=== PATIENT | male | born 1940 | race Caucasian/White ===

== ENCOUNTER 2016-08-08 15:43 | Emergency (ER) | payer MEDICARE, OTHER ==
[2016-08-08 15:59] VITALS: BP 152/92
--- NOTE | 2016-08-08 16:46 | EDM.PDOC ---
ED HPI GENERAL MEDICAL PROBLEM - General Chief Complaint: Gastrointestinal Problem Stated Complaint: CONSTIPATION Time Seen by Provider: 08/08/16 16:30 Source of Information: Reports: Patient History Limitations: Reports: No Limitations - History of Present Illness INITIAL COMMENTS - FREE TEXT/NARRATIVE: 75-year-old male presents for evaluation and treatment of constipation. Patient reports he has not had a significant bowel movement in the last 6 days. He has been using enemas every other day but has not noticed any significant results. States that he recently went on a road trip and was not eating his normal diet. He feels is likely contributed his acute constipation. Patient reports that he has a meningioma which is being managed by Dr. Kelley in [place]. He is states that this is likely the cause of his chronic constipation. Patient was seen at the [facility] 2 days ago. Abdominal xray was preformed. He is instructed to start lactulose and MiraLax. He was given a bottle of mag citrate by the pharmacy but has not taken this. Current symptoms include constipation. He states that he did have some small "raisin size " stools today, estimates about a half cup. He denies any fevers, chills, nausea, vomiting, abdominal pain or cramping, melena or hematochezia. He states he is passing gas. Reports he is not eating as much as he is concerned about constipation. States he spoke with his daughter and she encouraged him to be seen she as she informed him on occasion, surgery is necessary to treat constipation. - Related Data Allergies Allergy/AdvReac Type Severity Reaction Status Date / Time No Known Allergies Allergy Verified 08/08/16 15:59 Home Meds: Home Meds Brimonidine/Timolol [Combigan 0.2%/0.5% Ophth Soln] 1 drop EYELF BID 05/04/14 [ History] Latanoprost [Xalatan 0.005% Ophth Soln] 1 drop EYELF BEDTIME 05/05/14 [History] Pantoprazole [Protonix] 40 mg PO DAILY #90 tab.cr 05/06/14 [Rx] Gabapentin [Neurontin] 08/08/16 [History] Hydrochlorothiazide 25 mg PO DAILY 08/08/16 [History] Lisinopril [Prinivil] 08/08/16 [History] Past Medical History HEENT History: Reports: Impaired Vision Cardiovascular History: Reports: Hypertension Gastrointestinal History: Reports: Chronic Constipation Neurological History: Reports: Head Trauma Oncologic (Cancer) History: Reports: Brain, Prostate Social & Family History - Tobacco Use Smoking Status *Q: Former Smoker Used Tobacco, but Quit: Yes Month Tobacco Last Used: july - Caffeine Use Caffeine Use: Reports: Coffee - Alcohol Use Days Per Week of Alcohol Use: 0 - Recreational Drug Use Recreational Drug Use: No - Living Situation & Occupation Living situation: Reports: Occupation: Retired ED ROS GENERAL - Review of Systems Review Of Systems: See Below Constitutional: Denies: Fever, Decreased Appetite (has not been eating as much due to concerns over decreased stool) GI/Abdominal: Reports: Constipation, Flatus (continues to pass flatus). Denies : Abdominal Pain, Hematochezia, Melena, Nausea, Vomiting ED EXAM, GI/ABD - Physical Exam Exam: See Below Exam Limited By: No Limitations General Appearance: Alert, WD/WN, No Apparent Distress Eyes: Left: Normal Appearance (right upperlid drooping) Respiratory/Chest: No Respiratory Distress, Lungs Clear, Normal Breath Sounds Cardiovascular: Normal Peripheral Pulses, Regular Rate, Rhythm, No Murmur GI/Abdominal: Normal Bowel Sounds, Soft, Non-Tender Neurological: Alert, Oriented, Normal Cognition Psychiatric: Normal Affect, Normal Mood Skin Exam: Warm, Dry, Normal Color Course - Vital Signs Last Recorded V/S: Last Vital Signs Temp 36.5 C 08/08/16 15:52 Pulse 75 08/08/16 15:52 Resp 15 08/08/16 15:52 BP 152/92 H 08/08/16 15:52 Pulse Ox 100 08/08/16 15:52 - Orders/Labs/Meds Orders: Active Orders 24 hr Category Date Time Status Enema [RC] ASDIRECTED Care 08/08/16 17:37 Active - Radiology Interpretation Free Text/Narrative:: Flat and upright of the abdomen reviewed by myself and Dr. Bernard. No air fluid lines. Extensive gas in the large colon. No ileus evident. No free air. Mild stool in colon. - Re-Assessments/Exams Free Text/Narrative Re-Assessment/Exam: 08/08/16 17:40 Review of the x-ray results of the patient and his . Plan will be to give an enema here in the ER and have them do Magnesium citrate at home. 08/08/16 18:40 Patient had good results with enema here. Will have hime do a bottle of mag citrate per morning. If no results, then repeat the hours later. I will Have him do MiraLax every other day for daily bowel maintenance. he may continue to use enemas every other day if he feels that they're beneficial for him. Will discharge home. Discharge instructions as documented. Departure - Departure Time of Disposition: 18:50 Disposition: Home, Self-Care 01 Condition: good Clinical Impression: Constipation - Discharge Information Instructions: Constipation, Adult Referrals: Mark Sparks MD [Primary Care Provider] - Forms: ED Department Discharge Additional Instructions: Drink half of a bottle of Mag citrate tomorrow morning. If you do not have good results with the mag citrate drink the second 1/2 of the bottle 12 hours later. Recommend starting MiraLax every other day. may continue to use your enemas every other day. Make sure you are drinking plenty of fluids. Please return to the ER should your symptoms change or worsen. - My Orders Last 24 Hours: My Active Orders 08/08/16 17:37 Enema [RC] ASDIRECTED - Assessment/Plan Last 24 Hours: My Active Orders 08/08/16 17:37 Enema [RC] ASDIRECTED
--- NOTE | 2016-08-09 08:30 | CR ---
Abdomen: Supine and upright views of the abdomen were obtained. Comparison: No previous abdominal x-ray. Multiple surgical clips are seen within the pelvis. Scattered gas within colon is seen. This does not appear to be obstructive. No free air is seen. Scattered degenerative endplate spurring is noted within the spine. Impression: 1. Incidental findings. Diagnostic code #2
== END 2016-08-08 19:11 | disposition home or self-care (01) ==
LOC: JD.ED 15:43
DX: K59.00 Constipation, unspecified (principal); I10 Essential (primary) hypertension; Z87.891 Personal history of nicotine dependence; Z85.46 Personal history of malignant neoplasm of prostate; Z85.841 Personal history of malignant neoplasm of brain; Z79.899 Other long term (current) drug therapy
CPT/HCPCS: 74020; 74020-26; 99282; 99283

== ENCOUNTER 2016-10-12 10:13 | Inpatient (IN) | payer MEDICARE, OTHER ==
[2016-10-12] MEDS ORDERED: Sodium Chloride 0.9% 10 ML Syringe FLUSH PRN (11:09)
[2016-10-12] MEDS ORDERED: fentaNYL 100 MCG/2 ML SDV IVPUSH ONE ×2 (11:10→15:02)
--- NOTE | 2016-10-12 11:12 | EDM.PDOC ---
ED HPI GENERAL MEDICAL PROBLEM - General Chief Complaint: Fever Stated Complaint: Fever Time Seen by Provider: 10/12/16 11:00 Source of Information: Reports: EMS, Family (Son), RN Notes Reviewed History Limitations: Reports: No Limitations - History of Present Illness INITIAL COMMENTS - FREE TEXT/NARRATIVE: 75 year old male presents to the ED via [facility] due to fever, lethargy, and mental changes. The patient is unable to give history at this time. He is accompanied by his son who offers the history. The patient has terminal brain cancer. They are not treating the cancer and are focused on comfort care. The patient lives at [facility] but the son feels that he needs a higher level of care. Yesterday, they took Mik alysia Ventura to several doctor appointments. Over the past 24 hours the patient has had a significant, rapid decline according to the son. They were able to transfer him with minimal assistance yesterday. This morning, they were unable to get him out of bed. He has become very lethargic. He developed at 101.6 fever. He has increased confusion and slurred speech. This has been progressively worsening for some time. He has a non-productive cough. Severe headache. He has complete loss of vision to his right eye, this is not new. He also has swelling to the right orbit which is not new. He has been continent until yesterday. The son said he suddenly loss function of his bladder. Right Face Pain Score (Numeric/FACES): 7 - Related Data Allergies Allergy/AdvReac Type Severity Reaction Status Date / Time No Known Allergies Allergy Verified 08/08/16 15:59 Home Meds: Home Meds Brimonidine/Timolol [Combigan 0.2%/0.5% Ophth Soln] 1 drop EYELF BID 05/04/14 [ History] Latanoprost [Xalatan 0.005% Ophth Soln] 1 drop EYELF BEDTIME 05/05/14 [History] Pantoprazole [Protonix] 40 mg PO DAILY #90 tab.cr 05/06/14 [Rx] Gabapentin [Neurontin] 08/08/16 [History] Hydrochlorothiazide 25 mg PO DAILY 08/08/16 [History] Lisinopril [Prinivil] 08/08/16 [History] Past Medical History HEENT History: Reports: Impaired Vision Cardiovascular History: Reports: Hypertension Gastrointestinal History: Reports: Chronic Constipation Neurological History: Reports: Head Trauma Psychiatric History: Reports: Anxiety Oncologic (Cancer) History: Reports: Brain, Prostate - Past Surgical History HEENT Surgical History: Reports: Tonsillectomy GI Surgical History: Reports: Other (See Below) Other GI Surgeries/Procedures: Prostate removal Social & Family History - Family History Family Medical History: Noncontributory - Tobacco Use Smoking Status *Q: Never Smoker Used Tobacco, but Quit: Yes Month Tobacco Last Used: july - Caffeine Use Caffeine Use: Reports: Coffee - Alcohol Use Days Per Week of Alcohol Use: 0 - Recreational Drug Use Recreational Drug Use: No - Living Situation & Occupation Living situation: Reports: Occupation: Retired ED ROS GENERAL - Review of Systems Review Of Systems: See Below Constitutional: Reports: Fever, Weakness, Fatigue Respiratory: Reports: Cough. Denies: Sputum Cardiovascular: Reports: No Symptoms. Denies: Chest Pain, Edema GI/Abdominal: Reports: Constipation. Denies: Abdominal Pain, Nausea, Vomiting : Reports: No Symptoms Neurological: Reports: Confusion, Headache, Weakness ED EXAM, SEPSIS - Physical Exam Exam: See Below Exam Limited By: No Limitations General Appearance: WD/WN, Lethargic Eye Exam: Right Eye: Other (Right swollen eye, right pupil is not responsive to light), Left Eye: PERRL Throat/Mouth: Other (dry mucous membranes ) Head: Facial Swelling Respiratory/Chest: Lungs Clear, No Accessory Muscle Use, Chest Non-Tender, Decreased Breath Sounds Cardiovascular: Normal Peripheral Pulses, Regular Rate, Rhythm, No Edema, Other (diaphoretic ) GI/Abdominal Exam: Normal Bowel Sounds, Soft, Non-Tender, No Distention Neurological: Other (lethargic, does not answer questions, follows commands) Skin: Warm, Intact, Diaphoretic Course - Vital Signs Last Recorded V/S: Last Vital Signs Temp 101.8 F H 10/12/16 19:08 Pulse 96 10/12/16 19:08 Resp 20 10/12/16 19:08 BP 131/68 10/12/16 19:08 Pulse Ox 93 L 10/12/16 19:08 - Orders/Labs/Meds Orders: Active Orders 24 hr Category Date Time Status Cardiac Monitoring [RC] . DIRECTED Care 10/12/16 11:09 Active CULTURE BLOOD [BC] Stat Lab 10/12/16 11:33 Received CULTURE BLOOD [] Stat Lab 10/12/16 11:43 Received Sodium Chloride 0.9% [Saline Flush] Med 10/12/16 11:09 Active 10 ml FLUSH ASDIRECTED PRN Blood Culture x2 Reflex Set [OM.PC] Stat Ot 10/12/16 11:09 Ordered Peripheral IV Insertion Adult [OM.PC] Stat Ot 10/12/16 11:09 Ordered Medication Orders Acetaminophen (Tylenol) 650 mg RECTAL Q4H PRN PRN Reason: Pain (mild 1-3) Last Admin: 10/12/16 18:27 Dose: 650 mg Albuterol/Ipratropium (Duoneb 3.0-0.5 Mg/3 Ml) 3 ml NEB Q4H PRN PRN Reason: Shortness Of Breath/wheezing Famotidine (Pepcid) 20 mg IVPUSH BID [facility] Last Admin: 10/12/16 20:18 Dose: 20 mg Fentanyl (Duragesic) 12 mcg TRDERM Q72H [facility] Last Admin: 10/12/16 18:32 Dose: 12 mcg Hydralazine HCl (Apresoline) 20 mg IVPUSH Q4H PRN PRN Reason: Hypertension Ampicillin Sodium 2 gm/ Sodium (Chloride) 100 mls @ 200 mls/hr IV Q4H [facility] Vancomycin HCl 1 gm/Vancomycin HCl 500 mg/ Sodium Chloride 500 mls @ 125 mls/ hr IV Q12H [facility] Ceftriaxone Sodium 2 gm/ (Sodium Chloride) 100 mls @ 200 mls/hr IV Q12H [facility] Promethazine HCl 12.5 mg/ (Sodium Chloride) 50.5 mls @ 100 mls/hr IV Q6H PRN PRN Reason: Nausea/Vomiting Metronidazole 500 mg/ Premix 100 mls @ 100 mls/hr IV Q8H [facility] Last Admin: 10/12/16 20:17 Dose: 100 mls/hr Dexamethasone 34 mg/ Sodium (Chloride) 58.5 mls @ 117 mls/hr IV Q12H [facility] Stop: 10/14/16 21:29 Last Admin: 10/12/16 21:44 Dose: 117 mls/hr Sodium Chloride (Normal Saline) 1,000 mls @ 25 mls/hr IV ASDIRECTED [facility] Last Admin: 10/12/16 21:49 Dose: 25 mls/hr Lorazepam (Ativan) 1 mg IV Q6H PRN PRN Reason: Anxiety Magnesium Sulfate (Pharmacy To Dose - Magnesium Replacement) 1 dose .XX ASDIRECTED [facility] Metoprolol Tartrate (Lopressor) 5 mg IVPUSH Q4H PRN PRN Reason: Tachycardia Miscellaneous Information (Remove Patch) 1 ea TRDERM Q72H [facility] Last Admin: 10/12/16 20:03 Dose: Not Given Morphine Sulfate (Morphine) 2 mg IVPUSH Q4H PRN PRN Reason: Pain Stop: 10/15/16 17:19 Ondansetron HCl (Zofran) 4 mg IV Q6H PRN PRN Reason: Nausea/Vomiting Potassium Chloride (Pharmacy To Dose - Potassium Replacement) 1 dose .XX ASDIRECTED [facility] Sodium Chloride (Saline Flush) 10 ml FLUSH ASDIRECTED PRN PRN Reason: Keep Vein Open Last Admin: 10/12/16 11:34 Dose: 10 ml Vancomycin HCl (Pharmacy To Dose - Vancomycin) 1 dose .XX ONETIME ONE Stop: 10/12/16 17:13 Labs: Laboratory Tests 10/12/16 10/12/16 10/12/16 Range/Units 11:33 11:33 11:33 WBC 16.25 H (4.23-9.07) K/mm3 RBC 4.54 L (4.63-6.08) M/mm3 Hgb 14.2 (13.7-17.5) gm/L Hct 41.8 (40.1-51.0) % MCV 92.1 (79.0-92.2) fl MCH 31.3 (25.7-32.2) pg MCHC 34.0 (32.2-35.5) g/dl RDW Std Deviation 43.1 (35.1-43.9) fL Plt Count 201 (163-337) K/mm3 MPV 9.2 L (9.4-12.3) fl Neutrophils % (Manual) 83 H (40-60) % Band Neutrophils % 5 (0-10) % Lymphocytes % (Manual) 1 L (20-40) % Atypical Lymphs % 0 % Monocytes % (Manual) 11 H (2-10) % Eosinophils % (Manual) 0 L (0.8-7.0) % Basophils % (Manual) 0 L (0.2-1.2) Toxic Granulation 1+ slight Platelet Estimate Adequate Plt Morphology Comment Normal RBC Morph Comment Normal Sodium 136 (136-145) mEq/L Potassium 2.9 L (3.5-5.1) mEq/L Chloride 98 (98-107) mEq/L Carbon Dioxide 32 (21-32) mEq/L Anion Gap 8.9 (5-15) BUN 15 (7-18) mg/dL Creatinine 1.2 (0.7-1.3) mg/dL Est Cr Clr Drug Dosing TNP Estimated GFR (MDRD) 59 (>60) mL/min BUN/Creatinine Ratio 12.5 L (14-18) Glucose 118 H (83-115) mg/dL Lactic Acid 1.1 (0.4-2.0) mmol/L Calcium 8.8 (8.5-10.1) mg/dL Total Bilirubin 0.9 (0.2-1.0) mg/dL AST 27 (15-37) U/L ALT 32 (16-63) U/L Alkaline Phosphatase 64 (46-116) U/L C-Reactive Protein 16.1 H* (<1.0) mg/dL Total Protein 6.7 (6.4-8.2) g/dl Albumin 3.2 L (3.4-5.0) g/dl Globulin 3.5 gm/dL Albumin/Globulin Ratio 0.9 L (1-2) Urine Color (Yellow) Urine Appearance (Clear) Urine pH (5.0-8.0) Ur Specific [place] (1.005-1.030) Urine Protein (Negative) Urine Glucose (UA) (Negative) Urine Ketones (Negative) Urine Occult Blood (Negative) Urine Nitrite (Negative) Urine Bilirubin (Negative) Urine Urobilinogen (0.2-1.0) Ur Leukocyte Esterase (Negative) Urine RBC (0-5) /hpf Urine WBC (0-5) /hpf Ur Epithelial Cells (0-5) /hpf Urine Bacteria (FEW) /hpf Urine Mucus (FEW) /hpf 10/12/17 Range/Units 13:20 WBC (4.23-9.07) K/mm3 RBC (4.63-6.08) M/mm3 Hgb (13.7-17.5) gm/L Hct (40.1-51.0) % MCV (79.0-92.2) fl MCH (25.7-32.2) pg MCHC (32.2-35.5) g/dl RDW Std Deviation (35.1-43.9) fL Plt Count (163-337) K/mm3 MPV (9.4-12.3) fl Neutrophils % (Manual) (40-60) % Band Neutrophils % (0-10) % Lymphocytes % (Manual) (20-40) % Atypical Lymphs % % Monocytes % (Manual) (2-10) % Eosinophils % (Manual) (0.8-7.0) % Basophils % (Manual) (0.2-1.2) Toxic Granulation Platelet Estimate Plt Morphology Comment RBC Morph Comment Sodium (136-145) mEq/L Potassium (3.5-5.1) mEq/L Chloride (98-107) mEq/L Carbon Dioxide (21-32) mEq/L Anion Gap (5-15) BUN (7-18) mg/dL Creatinine (0.7-1.3) mg/dL Est Cr Clr Drug Dosing Estimated GFR (MDRD) (>60) mL/min BUN/Creatinine Ratio (14-18) Glucose (83-115) mg/dL Lactic Acid (0.4-2.0) mmol/L Calcium (8.5-10.1) mg/dL Total Bilirubin (0.2-1.0) mg/dL AST (15-37) U/L ALT (16-63) U/L Alkaline Phosphatase (46-116) U/L C-Reactive Protein (<1.0) mg/dL Total Protein (6.4-8.2) g/dl Albumin (3.4-5.0) g/dl Globulin gm/dL Albumin/Globulin Ratio (1-2) Urine Color Melbeta H (Yellow) Urine Appearance Clear (Clear) Urine pH 6.0 (5.0-8.0) Ur Specific [place] > or = 1.030 (1.005-1.030) Urine Protein 2+ H (Negative) Urine Glucose (UA) Negative (Negative) Urine Ketones 1+ H (Negative) Urine Occult Blood Negative (Negative) Urine Nitrite Negative (Negative) Urine Bilirubin Negative (Negative) Urine Urobilinogen 0.2 (0.2-1.0) Ur Leukocyte Esterase Negative (Negative) Urine RBC 5-10 H (0-5) /hpf Urine WBC 0-5 (0-5) /hpf Ur Epithelial Cells 0-5 (0-5) /hpf Urine Bacteria Moderate H (FEW) /hpf Urine Mucus Moderate H (FEW) /hpf Meds: Medications Generic Name Dose Route Start Last Admin Trade Name Freq PRN Reason Stop Dose Admin Acetaminophen 650 mg 10/12/16 17:16 10/12/16 18:27 Tylenol RECTAL 650 mg Q4H PRN Administration Pain (mild 1-3) Albuterol/Ipratropium 3 ml 10/12/16 17:19 Duoneb 3.0-0.5 Mg/3 Ml NEB Q4H PRN Shortness Of Breath/wheezing Famotidine 20 mg 10/12/16 21:00 10/12/16 20:18 Pepcid IVPUSH 20 mg BID [facility] Administration Fentanyl 12 mcg 10/12/16 18:00 10/12/16 18:32 Duragesic TRDERM 12 mcg Q72H [facility] Administration Hydralazine HCl 20 mg 10/12/16 17:09 Apresoline IVPUSH Q4H PRN Hypertension Ampicillin Sodium 2 gm/ Sodium 100 mls @ 200 mls/hr 10/12/16 18:00 Chloride IV Q4H [facility] Vancomycin HCl 1 gm/ 500 mls @ 125 mls/hr 10/12/16 22:00 Vancomycin HCl 500 mg/ Sodium IV Chloride Q12H [facility] Ceftriaxone Sodium 2 gm/ 100 mls @ 200 mls/hr 10/13/16 00:00 Sodium Chloride IV Q12H [facility] Promethazine HCl 12.5 mg/ 50.5 mls @ 100 mls/hr 10/12/16 17:19 Sodium Chloride IV Q6H PRN Nausea/Vomiting Metronidazole 500 mg/ Premix 100 mls @ 100 mls/hr 10/12/16 19:30 10/12/16 20: 17 IV 100 mls/hr Q8H [facility] Administration Dexamethasone 34 mg/ Sodium 58.5 mls @ 117 mls/hr 10/12/16 21:00 10/12/16 21: 44 Chloride IV 10/14/16 21:29 117 mls/hr Q12H [facility] Administration Sodium Chloride 1,000 mls @ 25 mls/hr 10/12/16 22:00 10/12/16 21:49 Normal Saline IV 25 mls/hr ASDIRECTED [facility] Administration Lorazepam 1 mg 10/12/16 17:19 Ativan IV Q6H PRN Anxiety Magnesium Sulfate 1 dose 10/12/16 17:30 Pharmacy To Dose - Magnesium Replacement .XX ASDIRECTED [facility] Metoprolol Tartrate 5 mg 10/12/16 17:09 Lopressor IVPUSH Q4H PRN Tachycardia Miscellaneous Information 1 ea 10/12/16 18:00 10/12/16 20:03 Remove Patch TRDERM Not Given Q72H [facility] Morphine Sulfate 2 mg 10/12/16 17:16 Morphine IVPUSH 10/15/16 17:19 Q4H PRN Pain Ondansetron HCl 4 mg 10/12/16 17:19 Zofran IV Q6H PRN Nausea/Vomiting Potassium Chloride 1 dose 10/12/16 17:30 Pharmacy To Dose - Potassium Replacement .XX ASDIRECTED [facility] Sodium Chloride 10 ml 10/12/16 11:09 10/12/16 11:34 Saline Flush FLUSH 10 ml ASDIRECTED PRN Administration Keep Vein Open Vancomycin HCl 1 dose 10/12/16 17:12 Pharmacy To Dose - Vancomycin .XX 10/12/16 17:13 ONETIME ONE Discontinued Medications Generic Name Dose Route Start Last Admin Trade Name Freq PRN Reason Stop Dose Admin Ampicillin Sodium Confirm 10/12/16 20:36 10/12/16 21:41 Ampicillin Administered 10/12/16 20:37 Not Given Dose 2 gm .ROUTE .STK-MED ONE Dexamethasone 34 mg 10/13/16 09:00 Dexamethasone IV 10/14/16 21:01 Q12HR [facility] Dexamethasone 34 mg 10/12/16 18:00 Dexamethasone IV 10/12/16 18:01 ONETIME ONE Dexamethasone 34 mg 10/12/16 18:00 10/12/16 21:41 Dexamethasone IV 10/12/16 18:01 Not Given ONETIME ONE Dexamethasone 34 mg 10/12/16 20:45 10/12/16 21:48 Dexamethasone IV 10/12/16 20:46 Not Given ONETIME ONE Fentanyl 25 mcg 10/12/16 11:10 10/12/16 11:34 Sublimaze IVPUSH 10/12/16 11:11 25 mcg ONETIME ONE Administration Fentanyl 25 mcg 10/12/16 15:02 10/12/16 15:28 Sublimaze IVPUSH 10/12/16 15:03 25 mcg ONETIME ONE Administration Potassium Chloride 10 meq/ 100 mls @ 100 mls/hr 10/12/16 13:15 10/12/16 14:18 Premix IV 100 mls/hr ASDIRECTED [facility] Administration Sodium Chloride 1,000 mls @ 150 mls/hr 10/12/16 13:08 10/12/16 13:37 Normal Saline IV 10/12/16 19:47 150 mls/hr ONETIME ONE Administration Ceftriaxone Sodium 1 gm/ 100 mls @ 200 mls/hr 10/12/16 13:13 10/12/16 13:40 Sodium Chloride IV 10/12/16 13:42 200 mls/hr ONETIME ONE Administration Sodium Chloride Confirm 10/12/16 20:45 10/12/16 21:32 Normal Saline Administered 10/12/16 20:46 Not Given Dose 100 mls @ as directed .ROUTE .STK-MED ONE Sodium Chloride 1,000 mls @ 150 mls/hr 10/12/16 21:30 Normal Saline IV ASDIRECTED [facility] - Re-Assessments/Exams Free Text/Narrative Re-Assessment/Exam: CBC reveals elevated WBC of 16,000 with 5 bands. CRP is elevated at 16. CMP reveals sodium of 136, potassium 2.9. Lactate is normal. Chest x-ray is negative for acute findings. No pulmonary infiltrates or effusions. UA is negative for infection. IV antibiotics were not initially started upon arrival because family was undecided if they wanted antibiotics since the patient is DNR. The family did talk and decided to proceed with antibiotics. Rocephin was ordered. Potassium rider was also ordered due to significant hypokalemia. The patient's family brought to my attention that the patient has had worsening right facial swelling and they have noticed that it's hot to touch. This was not mentioned during initial history and physical exam. Initially, the son reported that this was chronic however the daughter says this is a significant change. The patient also has yellow drainage from his right nare which they said has been occurring for a few days or more. I offered CT of the head and sinuses to evaluate for infection or possibly encephalitis. However, CT will not change treatment plan. After a long discussion, the family decided not to perform CTs as it would be a lot of movement and discomfort for the patient. We discussed the seriousness of his condition and that his prognosis is poor. 10/12/16 15:00 Dr. Gastelum who has accepted care of the patient. Patient will be admitted as an inpatient. Departure - Departure Time of Disposition: 15:30 Disposition: Admitted As Inpatient 64 Condition: Serious Clinical Impression: Fever Qualifiers: Fever type: unspecified Qualified Code(s): R50.9 - Fever, unspecified Sepsis Qualifiers: Sepsis type: sepsis due to unspecified organism Qualified Code(s): A41.9 - Sepsis, unspecified organism - Discharge Information - My Orders Last 24 Hours: My Active Orders 10/12/16 11:09 Cardiac Monitoring [RC] . DIRECTED Sodium Chloride 0.9% [Saline Flush] 10 ml FLUSH ASDIRECTED PRN Blood Culture x2 Reflex Set [OM.PC] Stat Peripheral IV Insertion Adult [OM.PC] Stat 10/12/16 11:33 CULTURE BLOOD [BC] Stat 10/12/16 11:43 CULTURE BLOOD [BC] Stat - Assessment/Plan Last 24 Hours: My Active Orders 10/12/16 11:09 Cardiac Monitoring [RC] . DIRECTED Sodium Chloride 0.9% [Saline Flush] 10 ml FLUSH ASDIRECTED PRN Blood Culture x2 Reflex Set [OM.PC] Stat Peripheral IV Insertion Adult [OM.PC] Stat 10/12/16 11:33 CULTURE BLOOD [BC] Stat 10/12/16 11:43 CULTURE BLOOD [BC] Stat
--- NOTE | 2016-10-12 12:07 | CR ---
Chest: Portable view of the chest was obtained. Comparison: Previous chest x-ray of 01/20/16. Heart size and mediastinum are within normal limits. Lungs are clear with no acute infiltrates. Bony structures are grossly intact. Several old healed left-sided rib fractures are incidentally noted. Impression: 1. Nothing acute is appreciated on portable chest x-ray. Diagnostic code #2
[2016-10-12] MEDS ORDERED: Sodium Chloride 0.9% 1,000 ML IV ONE (13:08)
[2016-10-12] MEDS ORDERED: cefTRIAXone 1 GM in Sodium Chloride 0.9% 100 ML IV ONE (13:13)
[2016-10-12] MEDS ORDERED: Potassium Chloride 10 MEQ in Premix Bag 1 BAG IV SCH (13:15)
--- NOTE | 2016-10-12 16:56 | PCM.HP ---
H&P History of Present Illness - General Date of Service: 10/12/16 Admit Problem/Dx: Admission Diagnosis/Problem Admission Diagnosis/Problem Fever Source of Information: Patient, Family, Provider, RN Notes Reviewed, Significant Other History Limitations: Reports: Altered Mental Status - History of Present Illness Initial Comments - Free Text/Narative: This is a 75 year old elderly white male with past medical history of impaired vision, hypertension, chronic constipation, history of head trauma, and history of prostate cancer who presents to the emergency department with complaints of worsening mental status associated with fever of 101.6 and a slurred speech. Patient is unable to abide pertinent information due confused status. 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 He was seen in [facility] in the past but surgical option was not pursued. He has seen Dr. Kelley in [facility] and underwent palliative treatment. Unfortunately, he has become resistant to the treatment. Patient was recently evaluated by numerous physicians in [facility] but over the course of 24 hours he has been rapidly declining. His initial workup in emergency department shows a CBC remarkable for WBC of 16.25, RBC of 4.54, neutrophils of 82%, and monocytes of 11%. His chemistry is remarkable for potassium of 2.9, glucose of 118, CRP of 16.1, and albumin of 3.2. His lactic acid is 1.1. UA is not impressive for urinary tract infection but suggestive of clinical dehydration. His chest x-ray shows no acute abnormal findings. Patient is being admitted for End of Life Care. He is DNR/DNI with comfort measures. Right Face Pain Score (Numeric/FACES): 7 - Related Data Allergies/Adverse Reactions: Allergies Allergy/AdvReac Type Severity Reaction Status Date / Time No Known Allergies Allergy Verified 08/08/16 15:59 Home Medications: Home Meds Brimonidine/Timolol [Combigan 0.2%/0.5% Ophth Soln] 1 drop EYELF BID 05/04/14 [ History] Latanoprost [Xalatan 0.005% Ophth Soln] 1 drop EYELF BEDTIME 05/05/14 [History] Pantoprazole [Protonix] 40 mg PO DAILY #90 tab.cr 05/06/14 [Rx] Gabapentin [Neurontin] 08/08/16 [History] Hydrochlorothiazide 25 mg PO DAILY 08/08/16 [History] Lisinopril [Prinivil] 08/08/16 [History] Past Medical History HEENT History: Reports: Impaired Vision Cardiovascular History: Reports: Hypertension Gastrointestinal History: Reports: Chronic Constipation Neurological History: Reports: Head Trauma Psychiatric History: Reports: Anxiety Oncologic (Cancer) History: Reports: Brain, Prostate - Past Surgical History HEENT Surgical History: Reports: Tonsillectomy GI Surgical History: Reports: Other (See Below) Other GI Surgeries/Procedures: Prostate removal Social & Family History - Family History Family Medical History: Noncontributory - Tobacco Use Smoking Status *Q: Never Smoker Used Tobacco, but Quit: Yes Month Tobacco Last Used: july - Caffeine Use Caffeine Use: Reports: Coffee - Alcohol Use Days Per Week of Alcohol Use: 0 - Recreational Drug Use Recreational Drug Use: No - Living Situation & Occupation Living situation: Reports: Occupation: Retired H&P Review of Systems - Review of Systems: Review Of Systems: See Below General: Reports: Fever, Chills, Weakness, Fatigue, Other (facial swelling with shut right eye) HEENT: Reports: No Symptoms, Other (dry mouth and thirsty) Pulmonary: Denies: Shortness of Breath Cardiovascular: Denies: Chest Pain Gastrointestinal: Reports: Constipation, Difficulty Swallowing. Denies: Abdominal Pain, Nausea, Vomiting Genitourinary: Reports: No Symptoms Musculoskeletal: Reports: No Symptoms Skin: Reports: No Symptoms Psychiatric: Denies: Depression, Anxiety, Hallucinations Neurological: Reports: Confusion Hematologic/Lymphatic: Reports: No Symptoms Immunologic: Reports: No Symptoms Exam - Exam Exam: See Below - Vital Signs Vital Signs: Last Vital Signs Temp 37.4 C 10/12/16 12:15 Pulse 85 10/12/16 15:30 Resp 16 10/12/16 15:30 BP 142/67 H 10/12/16 15:30 Pulse Ox 93 L 10/12/16 10:33 Weight: 88.451 kg - Exam Quality Assessment: Other General: Alert, Cooperative, Mild Distress, Moderate Distress, Other (Somnolent) HEENT: Nares Patent, Normal Nasal Septum (serosangernous), Other (right edema swollen, edematous and unresponsive pupil). No: EOMI Neck: Trachea Midline Lungs: Normal Respiratory Effort, Decreased Breath Sounds Cardiovascular: Regular Rate, Regular Rhythm GI/Abdominal Exam: Normal Bowel Sounds, Soft, Non-Tender, No Organomegaly, No Distention (Male) Exam: Deferred Rectal (Males) Exam: Deferred Back Exam: Normal Inspection, Decreased Range of Motion Extremities: Normal Inspection, Normal Range of Motion, Non-Tender, No Pedal Edema, Normal Capillary Refill Skin: Warm, Dry, Intact Skin Alteration Location (Drawings Not To Scale): 1 - Facial asymmetry, edema, erythema, hot to the touch. Difficulty opening his mouth. Edema right side of his face and neck. Dry mucous membranes 2 - edematous, red and warm to the touch Neuro Extensive - Mental Status: Slow Response to Commands, Other (awake). No: Alert, Oriented x3, Normal Mood/Affect, Normal Cognition, Memory Intact Neuro Extensive - Motor, Sensory, Reflexes: CN II-XII Intact, Abnormal Gait Psychiatric: No: Normal Affect, Normal Mood, Suicidal Ideation, Homicidal Ideation Physical Exam Comments:: Limited neuro examination due to AMS - Patient Data Result Diagrams: 10/12/16 11:33 10/12/16 11:33 *Q Meaningful Use (ADM) - VTE *Q VTE Criteria *Q: - Stroke *Q Stroke Criteria *Q: - AMI *Q AMI Criteria *Q: Problem List Initiated/Reviewed/Updated: Yes Orders Last 24hrs: Medication Orders Potassium Chloride 10 meq/ (Premix) 100 mls @ 100 mls/hr IV ASDIRECTED [facility] Last Admin: 10/12/16 14:18 Dose: 100 mls/hr Sodium Chloride (Normal Saline) 1,000 mls @ 150 mls/hr IV ONETIME ONE Stop: 10/12/16 19:47 Last Admin: 10/12/16 13:37 Dose: 150 mls/hr Sodium Chloride (Saline Flush) 10 ml FLUSH ASDIRECTED PRN PRN Reason: Keep Vein Open Last Admin: 10/12/16 11:34 Dose: 10 ml Assessment/Plan Comment:: Assessment/Plan: Acute: End of Life Care - DNR/DNI with Comfort Measures - Has inoperable brain tumor, failed palliative radiation therapy - So far family wants antibiotic, O2, fluids, and vitals check. No labs! 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 to include imaging study - IV Abx: Rocephin 2 gram IV Q12 and Vancomycin 15-20mg/kg Q8 for pharmacy to dose - Will add Ampicillin 2 gram IV Q4 due to Advanced Age - High dose IV steroids - If no treatment to treatment, consider adding anti-viral in am Rhinosinusitis and Right Parotitis - [place] nasal fluids - Cannot r/o CSF leak: frontal sinus - Family is refusing head imaging study - CSF culture - Currently receiving Vancoymin above - Add Flagyl for anaerobic coverage Acute Encephalopathy - Likely 2/2 toxic/metabolic/infectious process - Treat underlying cause Leukocytosis - WBC is 16.25 and CRP 16.1 - 2/2 Above Hypokalemia - K 2.9 - Likely 2/2 poor intake Dehydration - 2/2 poor intake - has difficulty swallowing per family - IV fluids for hydration for now Chronic: HTN Constipation BPH Anxiety Plan: Admit to Med-Surg Comfort Measures with conservative management Family will further decide what to do tomorrow NPO except to wet mouth with sponge SW/CM for d/c planning Code status: DNR/DNI Comfort Measures Prognosis: very poor
[2016-10-12] MEDS ORDERED: Metoprolol Tartrate 5 MG/5 ML SDV IVPUSH PRN (17:09)
[2016-10-12] MEDS ORDERED: hydrALAZINE 20 MG/ML SDV IVPUSH PRN (17:09)
[2016-10-12] MEDS ORDERED: Morphine 2 MG/ML Syringe IVPUSH PRN (17:16)
[2016-10-12] MEDS ORDERED: Acetaminophen 650 MG Supp RECTAL PRN (17:16)
[2016-10-12] MEDS ORDERED: Albuterol/Ipratropium 3.0-0.5 MG/3 ML Neb Soln NEB PRN (17:19)
[2016-10-12] MEDS ORDERED: Ondansetron 4 MG/2 ML SDV IV PRN (17:19)
[2016-10-12] MEDS ORDERED: Promethazine 12.5 MG in Sodium Chloride 0.9% 50 ML IV PRN (17:19)
[2016-10-12] MEDS ORDERED: Dexamethasone 4 MG/ML 5 ML MDV IV ONE ×3 (18:00→20:45)
[2016-10-12] MEDS: fentaNYL 12 MCG/HR Transdermal Patch TRDERM SCH (18:32)
[2016-10-12] MEDS: metroNIDAZOLE/Normal Saline 500 MG in Premix Bag 1 BAG IV SCH (20:17)
[2016-10-12] MEDS: Famotidine 20 MG/2 ML SDV IVPUSH SCH (20:18)
[2016-10-12] MEDS ORDERED: Ampicillin 2 GM Vial ONE (20:36)
[2016-10-12] MEDS ORDERED: Sodium Chloride 0.9% 100 ML ONE (20:45)
[2016-10-12] MEDS ORDERED: Sodium Chloride 0.9% 1,000 ML IV SCH (21:30)
[2016-10-12] MEDS: SODIUM CHLORIDE 0.9% IV SCH (21:44)
[2016-10-12] MEDS: DEXAMETHASONE IV SCH (21:44)
[2016-10-12] MEDS: Sodium Chloride 0.9% 1,000 ML IV SCH (21:49)
[2016-10-12] MEDS ORDERED: Vancomycin 1 GM, Vancomycin 500 MG in Sodium Chloride 0.9% 500 ML IV SCH ×2 (22:00→23:00)
[2016-10-12] MEDS: Ampicillin 2 GM in Sodium Chloride 0.9% 100 ML IV SCH ×2 (22:41→22:50)
[2016-10-12] MEDS ORDERED: Ampicillin 2 GM in Sodium Chloride 0.9% 100 ML IV SCH (22:45)
[2016-10-12] MEDS ORDERED: cefTRIAXone 2 GM in Sodium Chloride 0.9% 100 ML IV SCH (23:00)
[2016-10-13] MEDS ORDERED: cefTRIAXone 2 GM in Sodium Chloride 0.9% 100 ML IV SCH ×2
[2016-10-13] MEDS ORDERED: Vancomycin 1 GM, Vancomycin 500 MG in Sodium Chloride 0.9% 500 ML IV SCH ×3
[2016-10-13] MEDS: LORazepam 2 MG/ML MDV IV PRN (01:04)
[2016-10-13] MEDS ORDERED: Ampicillin 2 GM Vial ONE (02:41)
[2016-10-13] MEDS ORDERED: Sodium Chloride 0.9% 200 ML ONE (02:45)
[2016-10-13] MEDS: Ampicillin 2 GM in Sodium Chloride 0.9% 100 ML IV SCH ×2 (04:03→06:00)
[2016-10-13] MEDS: metroNIDAZOLE/Normal Saline 500 MG in Premix Bag 1 BAG IV SCH ×3 (04:42→18:59)
[2016-10-13] MEDS ORDERED: Dexamethasone 4 MG/ML 5 ML MDV IV SCH (09:00)
[2016-10-13] MEDS: SODIUM CHLORIDE 0.9% IV SCH ×3 (09:32→21:56)
[2016-10-13] MEDS: DEXAMETHASONE IV SCH ×3 (09:32→21:56)
[2016-10-13] MEDS ORDERED: Ampicillin 2 GM in Sodium Chloride 0.9% 100 ML IV SCH (10:00)
[2016-10-13] MEDS: Famotidine 20 MG/2 ML SDV IVPUSH SCH ×2 (10:07→22:07)
--- NOTE | 2016-10-13 11:35 | PCM.PN ---
- General Info Date of Service: 10/13/16 Admission Dx/Problem (Free Text): Interdisciplinary rounds occurred with discussion of plan of therapy, patient has improved and wanted to eat. Diet held until SP to evaluate swallow. A total of 15 minutes was spent on assessment/plan as well as physical exam. Patient is able to swallow without feeling as if something is stuck in his throat. Functional Status: Reports: Ambulating, Urinating - Review of Systems General: Reports: No Symptoms HEENT: Reports: No Symptoms Pulmonary: Reports: No Symptoms Cardiovascular: Reports: No Symptoms Gastrointestinal: Reports: No Symptoms Genitourinary: Reports: No Symptoms Musculoskeletal: Reports: No Symptoms Skin: Reports: No Symptoms Neurological: Reports: No Symptoms Psychiatric: Reports: No Symptoms - Patient Data Vitals - most recent: Last Vital Signs Temp 36.4 C 10/13/16 09:09 Pulse 81 10/13/16 09:09 Resp 14 10/13/16 09:09 BP 113/62 10/13/16 09:09 Pulse Ox 96 10/13/16 09:09 Weight - most recent: 86.092 kg I&O - last 24 hours: Intake & Output 10/12/16 10/13/16 10/13/16 22:59 06:59 14:59 Intake Total 1787 Balance 1787 Lab Results last 24 hrs: Laboratory Results - last 24 hr 10/12/16 Range/Units 21:30 MRSA (PCR) Negative Med Orders - Current: Current Medications Acetaminophen (Tylenol) 650 mg RECTAL Q4H PRN PRN Reason: Pain (mild 1-3) Last Admin: 10/12/16 18:27 Dose: 650 mg Albuterol/Ipratropium (Duoneb 3.0-0.5 Mg/3 Ml) 3 ml NEB Q4H PRN PRN Reason: Shortness Of Breath/wheezing Enoxaparin Sodium (Lovenox) 30 mg SUBCUT DAILY [facility] Famotidine (Pepcid) 20 mg IVPUSH BID [facility] Last Admin: 10/13/16 10:07 Dose: 20 mg Fentanyl (Duragesic) 12 mcg TRDERM Q72H [facility] Last Admin: 10/12/16 18:32 Dose: 12 mcg Hydralazine HCl (Apresoline) 20 mg IVPUSH Q4H PRN PRN Reason: Hypertension Promethazine HCl 12.5 mg/ (Sodium Chloride) 50.5 mls @ 100 mls/hr IV Q6H PRN PRN Reason: Nausea/Vomiting Metronidazole 500 mg/ Premix 100 mls @ 100 mls/hr IV Q8H [facility] Last Admin: 10/13/16 04:42 Dose: 100 mls/hr Sodium Chloride (Normal Saline) 1,000 mls @ 25 mls/hr IV ASDIRECTED [facility] Last Admin: 10/12/16 21:49 Dose: 25 mls/hr Dexamethasone 34 mg/ Sodium (Chloride) 58.5 mls @ 117 mls/hr IV Q12H [facility] Stop: 10/14/16 21:59 Last Admin: 10/13/16 10:14 Dose: 117 mls/hr Lorazepam (Ativan) 1 mg IV Q6H PRN PRN Reason: Anxiety Last Admin: 10/13/16 01:04 Dose: 1 mg Magnesium Sulfate (Pharmacy To Dose - Magnesium Replacement) 1 dose .XX ASDIRECTED [facility] Metoprolol Tartrate (Lopressor) 5 mg IVPUSH Q4H PRN PRN Reason: Tachycardia Miscellaneous Information (Remove Patch) 1 ea TRDERM Q72H [facility] Last Admin: 10/12/16 20:03 Dose: Not Given Morphine Sulfate (Morphine) 2 mg IVPUSH Q4H PRN PRN Reason: Pain Stop: 10/15/16 17:19 Ondansetron HCl (Zofran) 4 mg IV Q6H PRN PRN Reason: Nausea/Vomiting Potassium Chloride (Pharmacy To Dose - Potassium Replacement) 1 dose .XX ASDIRECTED [facility] Sodium Chloride (Saline Flush) 10 ml FLUSH ASDIRECTED PRN PRN Reason: Keep Vein Open Last Admin: 10/12/16 11:34 Dose: 10 ml Discontinued Medications Ampicillin Sodium (Ampicillin) Confirm Administered Dose 2 gm .ROUTE .STK-MED ONE Stop: 10/12/16 20:37 Last Admin: 10/12/16 21:41 Dose: Not Given Ampicillin Sodium (Ampicillin) Confirm Administered Dose 4 gm .ROUTE .STK-MED ONE Stop: 10/13/16 02:42 Last Admin: 10/13/16 03:01 Dose: Not Given Dexamethasone (Dexamethasone) 34 mg IV Q12HR [facility] Stop: 10/14/16 21:01 Dexamethasone (Dexamethasone) 34 mg IV ONETIME ONE Stop: 10/12/16 18:01 Dexamethasone (Dexamethasone) 34 mg IV ONETIME ONE Stop: 10/12/16 18:01 Last Admin: 10/12/16 21:41 Dose: Not Given Dexamethasone (Dexamethasone) 34 mg IV ONETIME ONE Stop: 10/12/16 20:46 Last Admin: 10/12/16 21:48 Dose: Not Given Fentanyl (Sublimaze) 25 mcg IVPUSH ONETIME ONE Stop: 10/12/16 11:11 Last Admin: 10/12/16 11:34 Dose: 25 mcg Fentanyl (Sublimaze) 25 mcg IVPUSH ONETIME ONE Stop: 10/12/16 15:03 Last Admin: 10/12/16 15:28 Dose: 25 mcg Potassium Chloride 10 meq/ (Premix) 100 mls @ 100 mls/hr IV ASDIRECTED [facility] Last Admin: 10/12/16 14:18 Dose: 100 mls/hr Sodium Chloride (Normal Saline) 1,000 mls @ 150 mls/hr IV ONETIME ONE Stop: 10/12/16 19:47 Last Admin: 10/12/16 13:37 Dose: 150 mls/hr Ceftriaxone Sodium 1 gm/ (Sodium Chloride) 100 mls @ 200 mls/hr IV ONETIME ONE Stop: 10/12/16 13:42 Last Admin: 10/12/16 13:40 Dose: 200 mls/hr Ampicillin Sodium 2 gm/ Sodium (Chloride) 100 mls @ 200 mls/hr IV Q4H [facility] Last Admin: 10/12/16 22:41 Dose: Not Given Vancomycin HCl 1 gm/Vancomycin HCl 500 mg/ Sodium Chloride 500 mls @ 125 mls/ hr IV Q12H [facility] Last Admin: 10/12/16 22:41 Dose: Not Given Ceftriaxone Sodium 2 gm/ (Sodium Chloride) 100 mls @ 200 mls/hr IV Q12H [facility] Sodium Chloride (Normal Saline) Confirm Administered Dose 100 mls @ as directed .ROUTE .STK-MED ONE Stop: 10/12/16 20:46 Last Admin: 10/12/16 21:32 Dose: Not Given Dexamethasone 34 mg/ Sodium (Chloride) 58.5 mls @ 117 mls/hr IV Q12H [facility] Stop: 10/14/16 21:29 Last Admin: 10/13/16 09:32 Dose: Not Given Sodium Chloride (Normal Saline) 1,000 mls @ 150 mls/hr IV ASDIRECTED [facility] Ampicillin Sodium 2 gm/ Sodium (Chloride) 100 mls @ 200 mls/hr IV Q4H [facility] Ampicillin Sodium 2 gm/ Sodium (Chloride) 100 mls @ 200 mls/hr IV Q4H [facility] Last Admin: 10/13/16 06:00 Dose: 200 mls/hr Vancomycin HCl 1 gm/Vancomycin HCl 500 mg/ Sodium Chloride 500 mls @ 125 mls/ hr IV Q12H [facility] Ceftriaxone Sodium 2 gm/ (Sodium Chloride) 100 mls @ 200 mls/hr IV Q12H [facility] Last Admin: 10/12/16 23:41 Dose: 200 mls/hr Vancomycin HCl 1 gm/Vancomycin HCl 500 mg/ Sodium Chloride 500 mls @ 333.33 mls /hr IV Q12H [facility] Last Admin: 10/13/16 00:38 Dose: 333.33 mls/hr Sodium Chloride (Normal Saline) Confirm Administered Dose 200 mls @ as directed .ROUTE .STK-MED ONE Stop: 10/13/16 02:46 Last Admin: 10/13/16 03:01 Dose: Not Given Ampicillin Sodium 2 gm/ Sodium (Chloride) 100 mls @ 200 mls/hr IV Q4H [facility] Last Admin: 10/13/16 11:06 Dose: 200 mls/hr Vancomycin HCl (Pharmacy To Dose - Vancomycin) 1 dose .XX ONETIME ONE Stop: 10/12/16 17:13 - Exam Quality Assessment: DVT prophylaxis General: alert, oriented, cooperative, no acute distress HEENT: Pupils equal, Pupils reactive, EOMI, Mucous membr. moist/pink, Other ( decreased erythema and edema) Neck: supple, trachea midline, no JVD Lungs: Normal Respiratory Effort Cardiovascular: Regular Rate, Regular Rhythm GI/Abdominal Exam: Normal Bowel Sounds, Soft, Non-Tender, No Organomegaly (Male) Exam: Deferred Back Exam: Normal Inspection Extremities: Normal Inspection Skin: warm Neurological: no new focal deficit, normal speech Psy/Mental Status: alert, normal affect, normal mood - Problem List & Annotations (1) Fever SNOMED Code(s): 872356335 Code(s): R50.9 - FEVER, UNSPECIFIED Status: Acute Current Visit: Yes Qualifiers: Qualified Code(s): R50.9 - Fever, unspecified (2) Sepsis SNOMED Code(s): 82146529 Code(s): A41.9 - SEPSIS, UNSPECIFIED ORGANISM Status: Acute Current Visit : Yes Qualifiers: Qualified Code(s): A41.9 - Sepsis, unspecified organism (3) Cellulitis SNOMED Code(s): 850171418 Code(s): L03.90 - CELLULITIS, UNSPECIFIED Status: Acute Current Visit: Yes (4) Parotid discomfort SNOMED Code(s): 91302838 Code(s): K11.9 - DISEASE OF [place], UNSPECIFIED Status: Acute Current Visit: Yes (5) Meningeal cancer SNOMED Code(s): 204811127 Code(s): C70.9 - MALIGNANT NEOPLASM OF MENINGES, UNSPECIFIED Status: Acute Current Visit: Yes (6) Encephalitis SNOMED Code(s): 98050591 Code(s): G04.90 - ENCEPHALITIS AND ENCEPHALOMYELITIS, UNSPECIFIED Status: Acute Current Visit: Yes - Problem List Review Problem List Initiated/Reviewed/Updated: Yes - My Orders Last 24 Hours: My Active Orders 10/13/16 09:49 Antiembolic Devices [RC] PER UNIT ROUTINE MARIA FERNANDA Hose [Antiembolic Hose] [OM.PC] Routine 10/14/16 09:00 Enoxaparin [Lovenox] 30 mg SUBCUT DAILY - Plan Plan:: Assessment/Plan: Acute: End of Life Care - DNR/DNI with Comfort Measures - Has inoperable brain tumor, failed palliative radiation therapy - So far family wants antibiotic, O2, fluids, and vitals check. No labs! 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 - Add Flagyl for anaerobic coverage-->continue Acute Encephalopathy - Likely 2/2 toxic/metabolic/infectious process - Treat underlying cause Leukocytosis - WBC is 16.25 and CRP 16.1 - 2/2 Above Hypokalemia - K 2.9 - Likely 2/2 poor intake Dehydration - 2/2 poor intake - has difficulty swallowing per family - IV fluids for hydration for now Chronic: HTN Constipation BPH Anxiety Plan: Continue Med-Surg Comfort Measures with conservative management Family will further decide what to do tomorrow (?), more undecided with improvement SP re: Suleiman DONOVAN/CM for d/c planning Code status: DNR/DNI Comfort Measures Prognosis: very poor Disposition suggest SNF. LOS>96 hours expected for treatment and placement; ongoing discussion regarding placement; code status DNR/DNI Comfort Care
[2016-10-13] MEDS ORDERED: Piperacillin/Tazobactam 4.5 GM in Sodium Chloride 0.9% 100 ML IV ONE (13:00)
[2016-10-13] MEDS ORDERED: Bisacodyl 5 MG Tab PO PRN (21:12)
[2016-10-13] MEDS ORDERED: Sennosides 8.6 MG Tab PO PRN (21:13)
[2016-10-13] MEDS ORDERED: Bisacodyl 10 MG Supp RECTAL PRN (21:14)
[2016-10-13] MEDS: Piperacillin/Tazobactam 4.5 GM in Sodium Chloride 0.9% 100 ML IV SCH (22:08)
[2016-10-13] MEDS: Sodium Chloride 0.9% 1,000 ML IV SCH (23:17)
[2016-10-14] MEDS: metroNIDAZOLE/Normal Saline 500 MG in Premix Bag 1 BAG IV SCH ×3 (03:21→18:51)
[2016-10-14] MEDS: Piperacillin/Tazobactam 4.5 GM in Sodium Chloride 0.9% 100 ML IV SCH ×3 (04:39→20:55)
[2016-10-14] MEDS: Enoxaparin 30 MG/0.3 ML Syringe SUBCUT SCH (10:15)
[2016-10-14] MEDS: Famotidine 20 MG/2 ML SDV IVPUSH SCH ×2 (10:15→20:55)
[2016-10-14] MEDS: SODIUM CHLORIDE 0.9% IV SCH ×2 (10:16→20:43)
[2016-10-14] MEDS: DEXAMETHASONE IV SCH ×2 (10:16→20:43)
--- NOTE | 2016-10-14 12:37 | PCM.PN ---
- General Info Date of Service: 10/14/16 Functional Status: Reports: Tolerating Diet (dysphagia per SP) - Review of Systems General: Reports: Weakness (improved) HEENT: Reports: No Symptoms Pulmonary: Reports: No Symptoms Cardiovascular: Reports: No Symptoms Gastrointestinal: Reports: No Symptoms Genitourinary: Reports: No Symptoms Musculoskeletal: Reports: No Symptoms Skin: Reports: No Symptoms Neurological: Reports: No Symptoms Psychiatric: Reports: No Symptoms - Patient Data Vitals - most recent: Last Vital Signs Temp 37.1 C 10/14/16 07:48 Pulse 69 10/14/16 07:48 Resp 12 10/14/16 07:48 BP 123/75 10/14/16 07:48 Pulse Ox 95 10/14/16 07:48 Weight - most recent: 86.092 kg I&O - last 24 hours: Intake & Output 10/13/16 10/14/16 10/14/16 22:59 06:59 14:59 Intake Total 956 1109 120 Output Total 600 300 Balance 356 809 120 Lab Results last 24 hrs: Laboratory Results - last 24 hr 10/14/16 Range/Units 06:25 Creatinine 0.9 (0.7-1.3) mg/dL Est Cr Clr Drug Dosing 82.59 mL/min Estimated GFR (MDRD) > 60 (>60) mL/min Shane Results last 24 hrs: Microbiology 10/12/16 21:40 Wound Culture - Preliminary Nose, Right Gram Negative Rods Gram Negative Rods#2 Med Orders - Current: Current Medications Acetaminophen (Tylenol) 650 mg RECTAL Q4H PRN PRN Reason: Pain (mild 1-3) Last Admin: 10/12/16 18:27 Dose: 650 mg Albuterol/Ipratropium (Duoneb 3.0-0.5 Mg/3 Ml) 3 ml NEB Q4H PRN PRN Reason: Shortness Of Breath/wheezing Bisacodyl (Dulcolax) 10 mg PO ASDIRECTED PRN PRN Reason: Constipation Last Admin: 10/13/16 22:08 Dose: 10 mg Bisacodyl (Dulcolax) 10 mg RECTAL DAILY PRN PRN Reason: Constipation Dexamethasone (Dexamethasone) 4 mg PO TID [facility] Enoxaparin Sodium (Lovenox) 30 mg SUBCUT DAILY [facility] Last Admin: 07/22/17 10:15 Dose: 30 mg Famotidine (Pepcid) 20 mg IVPUSH BID [facility] Last Admin: 10/14/16 10:15 Dose: 20 mg Fentanyl (Duragesic) 12 mcg TRDERM Q72H [facility] Last Admin: 10/12/16 18:32 Dose: 12 mcg Hydralazine HCl (Apresoline) 20 mg IVPUSH Q4H PRN PRN Reason: Hypertension Promethazine HCl 12.5 mg/ (Sodium Chloride) 50.5 mls @ 100 mls/hr IV Q6H PRN PRN Reason: Nausea/Vomiting Metronidazole 500 mg/ Premix 100 mls @ 100 mls/hr IV Q8H [facility] Last Admin: 10/14/16 10:59 Dose: 100 mls/hr Sodium Chloride (Normal Saline) 1,000 mls @ 25 mls/hr IV ASDIRECTED [facility] Last Admin: 10/13/16 23:17 Dose: 25 mls/hr Dexamethasone 34 mg/ Sodium (Chloride) 58.5 mls @ 117 mls/hr IV Q12H [facility] Stop: 10/14/16 21:59 Last Admin: 10/14/16 10:16 Dose: 117 mls/hr Piperacillin Sod/Tazobactam (Sod 4.5 gm/ Sodium Chloride) 100 mls @ 25 mls/hr IV Q8H [facility] Last Admin: 10/14/16 12:31 Dose: 25 mls/hr Lorazepam (Ativan) 1 mg IV Q6H PRN PRN Reason: Anxiety Last Admin: 10/13/16 01:04 Dose: 1 mg Metoprolol Tartrate (Lopressor) 5 mg IVPUSH Q4H PRN PRN Reason: Tachycardia Miscellaneous Information (Remove Patch) 1 ea TRDERM Q72H [facility] Last Admin: 10/12/16 20:03 Dose: Not Given Morphine Sulfate (Morphine) 2 mg IVPUSH Q4H PRN PRN Reason: Pain Stop: 10/15/16 17:19 Ondansetron HCl (Zofran) 4 mg IV Q6H PRN PRN Reason: Nausea/Vomiting Senna (Senna) 8.6 mg PO DAILY PRN PRN Reason: Constipation Last Admin: 10/13/16 22:08 Dose: 8.6 mg Sodium Chloride (Saline Flush) 10 ml FLUSH ASDIRECTED PRN PRN Reason: Keep Vein Open Last Admin: 10/12/16 11:34 Dose: 10 ml Discontinued Medications Ampicillin Sodium (Ampicillin) Confirm Administered Dose 2 gm .ROUTE .STK-MED ONE Stop: 10/12/16 20:37 Last Admin: 10/12/16 21:41 Dose: Not Given Ampicillin Sodium (Ampicillin) Confirm Administered Dose 4 gm .ROUTE .STK-MED ONE Stop: 10/13/16 02:42 Last Admin: 10/13/16 03:01 Dose: Not Given Dexamethasone (Dexamethasone) 34 mg IV Q12HR [facility] Stop: 10/14/16 21:01 Dexamethasone (Dexamethasone) 34 mg IV ONETIME ONE Stop: 10/12/16 18:01 Dexamethasone (Dexamethasone) 34 mg IV ONETIME ONE Stop: 10/12/16 18:01 Last Admin: 10/12/16 21:41 Dose: Not Given Dexamethasone (Dexamethasone) 34 mg IV ONETIME ONE Stop: 10/12/16 20:46 Last Admin: 10/12/16 21:48 Dose: Not Given Fentanyl (Sublimaze) 25 mcg IVPUSH ONETIME ONE Stop: 10/12/16 11:11 Last Admin: 10/12/16 11:34 Dose: 25 mcg Fentanyl (Sublimaze) 25 mcg IVPUSH ONETIME ONE Stop: 10/12/16 15:03 Last Admin: 10/12/16 15:28 Dose: 25 mcg Potassium Chloride 10 meq/ (Premix) 100 mls @ 100 mls/hr IV ASDIRECTED [facility] Last Admin: 10/12/16 14:18 Dose: 100 mls/hr Sodium Chloride (Normal Saline) 1,000 mls @ 150 mls/hr IV ONETIME ONE Stop: 10/12/16 19:47 Last Admin: 10/12/16 13:37 Dose: 150 mls/hr Ceftriaxone Sodium 1 gm/ (Sodium Chloride) 100 mls @ 200 mls/hr IV ONETIME ONE Stop: 10/12/16 13:42 Last Admin: 10/12/16 13:40 Dose: 200 mls/hr Ampicillin Sodium 2 gm/ Sodium (Chloride) 100 mls @ 200 mls/hr IV Q4H [facility] Last Admin: 10/12/16 22:41 Dose: Not Given Vancomycin HCl 1 gm/Vancomycin HCl 500 mg/ Sodium Chloride 500 mls @ 125 mls/ hr IV Q12H [facility] Last Admin: 10/12/16 22:41 Dose: Not Given Ceftriaxone Sodium 2 gm/ (Sodium Chloride) 100 mls @ 200 mls/hr IV Q12H [facility] Sodium Chloride (Normal Saline) Confirm Administered Dose 100 mls @ as directed .ROUTE .K-MED ONE Stop: 10/12/16 20:46 Last Admin: 10/12/16 21:32 Dose: Not Given Dexamethasone 34 mg/ Sodium (Chloride) 58.5 mls @ 117 mls/hr IV Q12H [facility] Stop: 10/14/16 21:29 Last Admin: 10/13/16 09:32 Dose: Not Given Sodium Chloride (Normal Saline) 1,000 mls @ 150 mls/hr IV ASDIRECTED [facility] Ampicillin Sodium 2 gm/ Sodium (Chloride) 100 mls @ 200 mls/hr IV Q4H [facility] Ampicillin Sodium 2 gm/ Sodium (Chloride) 100 mls @ 200 mls/hr IV Q4H [facility] Last Admin: 10/13/16 06:00 Dose: 200 mls/hr Vancomycin HCl 1 gm/Vancomycin HCl 500 mg/ Sodium Chloride 500 mls @ 125 mls/ hr IV Q12H [facility] Ceftriaxone Sodium 2 gm/ (Sodium Chloride) 100 mls @ 200 mls/hr IV Q12H [facility] Last Admin: 10/12/16 23:41 Dose: 200 mls/hr Vancomycin HCl 1 gm/Vancomycin HCl 500 mg/ Sodium Chloride 500 mls @ 333.33 mls /hr IV Q12H [facility] Last Admin: 10/13/16 00:38 Dose: 333.33 mls/hr Sodium Chloride (Normal Saline) Confirm Administered Dose 200 mls @ as directed .ROUTE .[facility] ONE Stop: 10/13/16 02:46 Last Admin: 10/13/16 03:01 Dose: Not Given Ampicillin Sodium 2 gm/ Sodium (Chloride) 100 mls @ 200 mls/hr IV Q4H [facility] Last Admin: 10/13/16 11:06 Dose: 200 mls/hr Piperacillin Sod/Tazobactam (Sod 4.5 gm/ Sodium Chloride) 100 mls @ 200 mls/hr IV ONETIME ONE Stop: 10/13/16 13:29 Last Admin: 10/13/16 13:05 Dose: 200 mls/hr Magnesium Sulfate (Pharmacy To Dose - Magnesium Replacement) 1 dose .XX ASDIRECTED [facility] Potassium Chloride (Pharmacy To Dose - Potassium Replacement) 1 dose .XX ASDIRECTED [facility] Vancomycin HCl (Pharmacy To Dose - Vancomycin) 1 dose .XX ONETIME ONE Stop: 10/12/16 17:13 - Exam Quality Assessment: DVT prophylaxis General: alert, oriented, cooperative, no acute distress HEENT: Pupils equal, Pupils reactive, EOMI, Mucous membr. moist/pink Neck: supple, trachea midline, other (decreased swelling) Lungs: Normal Respiratory Effort Cardiovascular: Regular Rate, Regular Rhythm GI/Abdominal Exam: Normal Bowel Sounds, Soft, Non-Tender, No Organomegaly (Male) Exam: Deferred Back Exam: Normal Inspection Extremities: Normal Inspection Skin: warm Wound/Incisions: drainage (decreased), erythema improving Neurological: no new focal deficit, normal gait (requires walker) Psy/Mental Status: alert, normal affect, normal mood - Problem List & Annotations (1) Fever SNOMED Code(s): 232362193 Code(s): R50.9 - FEVER, UNSPECIFIED Status: Acute Current Visit: Yes Qualifiers: Qualified Code(s): R50.9 - Fever, unspecified (2) Sepsis SNOMED Code(s): 63623206 Code(s): A41.9 - SEPSIS, UNSPECIFIED ORGANISM Status: Acute Current Visit : Yes Qualifiers: Qualified Code(s): A41.9 - Sepsis, unspecified organism (3) Cellulitis SNOMED Code(s): 266553663 Code(s): L03.90 - CELLULITIS, UNSPECIFIED Status: Acute Current Visit: Yes (4) Parotid discomfort SNOMED Code(s): 82203074 Code(s): K11.9 - DISEASE OF SALIVARY GLAND, UNSPECIFIED Status: Acute Current Visit: Yes (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 - MALIGNANT NEOPLASM OF MENINGES, UNSPECIFIED Status: Acute Current Visit: Yes (6) Encephalitis SNOMED Code(s): 88706243 Code(s): G04.90 - ENCEPHALITIS AND ENCEPHALOMYELITIS, UNSPECIFIED Status: Acute Current Visit: Yes - Problem List Review Problem List Initiated/Reviewed/Updated: Yes - My Orders Last 24 Hours: My Active Orders 10/13/16 17:32 Enema [RC] ASDIRECTED 10/13/16 21:00 Piperacillin/Tazobactam [Zosyn] 4.5 gm Sodium Chloride 0.9% [Normal Saline] 100 ml IV Q8H 10/13/16 21:12 Bisacodyl [Dulcolax] 10 mg PO ASDIRECTED PRN 10/13/16 21:14 Bisacodyl [Dulcolax] 10 mg RECTAL DAILY PRN 10/13/16 Dinner [employer] Dysphagia Diet [DIET] 10/14/16 09:00 Enoxaparin [Lovenox] 30 mg SUBCUT DAILY 10/15/16 09:00 Dexamethasone 4 mg PO TID - Plan Plan:: Assessment/Plan: Acute: End of Life Care - DNR/DNI with Comfort Measures - Has inoperable brain tumor, failed palliative radiation therapy - So far family wants antibiotic, O2, fluids, and vitals check. No labs! 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 - Add Flagyl for anaerobic coverage-->continue Acute Encephalopathy - Likely 2/2 toxic/metabolic/infectious process---->resolved with treatment - Treat underlying cause Leukocytosis - WBC is 16.25 and CRP 16.1-->current status is unknown without lab draw, clinically has improved - 2/2 Above Hypokalemia - K 2.9 - Likely 2/2 poor intake Dehydration - 2/2 poor intake - has difficulty swallowing per family - IV fluids for hydration for now Chronic: HTN Constipation BPH Anxiety Plan: Continue Med-Surg Comfort Measures with conservative management Continue dysphagia diet SW/CM for d/c planning Code status: DNR/DNI Comfort Measures Prognosis: very poor Disposition suggest SNF. LOS>96 hours expected for treatment and placement; ongoing discussion regarding placement; code status DNR/DNI Comfort Care
[2016-10-14] MEDS: Sodium Chloride 0.9% 1,000 ML IV SCH (20:46)
[2016-10-14] MEDS: LORazepam 2 MG/ML MDV IV PRN (22:18)
[2016-10-15] MEDS: metroNIDAZOLE/Normal Saline 500 MG in Premix Bag 1 BAG IV SCH ×3 (03:01→18:31)
[2016-10-15] MEDS: Piperacillin/Tazobactam 4.5 GM in Sodium Chloride 0.9% 100 ML IV SCH ×2 (05:32→14:07)
[2016-10-15] MEDS: Dexamethasone 4 MG Tab PO SCH ×3 (08:01→21:02)
[2016-10-15] MEDS: Enoxaparin 30 MG/0.3 ML Syringe SUBCUT SCH (08:01)
[2016-10-15] MEDS: Famotidine 20 MG/2 ML SDV IVPUSH SCH ×2 (08:01→21:03)
--- NOTE | 2016-10-15 09:12 | PCM.PN ---
- General Info Date of Service: 10/15/16 Functional Status: Reports: Tolerating Diet, Ambulating, Urinating - Review of Systems General: Reports: No Symptoms HEENT: Reports: No Symptoms Pulmonary: Reports: No Symptoms Cardiovascular: Reports: No Symptoms Gastrointestinal: Reports: No Symptoms Genitourinary: Reports: No Symptoms Musculoskeletal: Reports: No Symptoms Skin: Reports: No Symptoms Neurological: Reports: No Symptoms Psychiatric: Reports: No Symptoms - Patient Data Vitals - most recent: Last Vital Signs Temp 36.7 C 10/15/16 07:29 Pulse 64 10/15/16 07:29 Resp 14 10/15/16 07:29 BP 127/67 10/15/16 07:29 Pulse Ox 95 10/15/16 07:29 Weight - most recent: 86.092 kg I&O - last 24 hours: Intake & Output 10/14/16 10/15/16 10/15/16 22:59 06:59 14:59 Intake Total 1249 685 Balance 1249 685 Shane Results last 24 hrs: Microbiology 10/12/16 21:40 Wound Culture - Preliminary Nose, Right Gram Negative Rods Gram Negative Rods#2 Med Orders - Current: Current Medications Acetaminophen (Tylenol) 650 mg RECTAL Q4H PRN PRN Reason: Pain (mild 1-3) Last Admin: 10/12/16 18:27 Dose: 650 mg Albuterol/Ipratropium (Duoneb 3.0-0.5 Mg/3 Ml) 3 ml NEB Q4H PRN PRN Reason: Shortness Of Breath/wheezing Bisacodyl (Dulcolax) 10 mg PO ASDIRECTED PRN PRN Reason: Constipation Last Admin: 10/13/16 22:08 Dose: 10 mg Bisacodyl (Dulcolax) 10 mg RECTAL DAILY PRN PRN Reason: Constipation Dexamethasone (Dexamethasone) 4 mg PO TID [facility] Last Admin: 10/15/16 08:01 Dose: 4 mg Enoxaparin Sodium (Lovenox) 30 mg SUBCUT DAILY [facility] Last Admin: 10/15/16 08:01 Dose: 30 mg Famotidine (Pepcid) 20 mg IVPUSH BID [facility] Last Admin: 10/15/16 08:01 Dose: 20 mg Fentanyl (Duragesic) 12 mcg TRDERM Q72H [facility] Last Admin: 10/12/16 18:32 Dose: 12 mcg Hydralazine HCl (Apresoline) 20 mg IVPUSH Q4H PRN PRN Reason: Hypertension Promethazine HCl 12.5 mg/ (Sodium Chloride) 50.5 mls @ 100 mls/hr IV Q6H PRN PRN Reason: Nausea/Vomiting Metronidazole 500 mg/ Premix 100 mls @ 100 mls/hr IV Q8H [facility] Last Admin: 10/15/16 03:01 Dose: 100 mls/hr Sodium Chloride (Normal Saline) 1,000 mls @ 25 mls/hr IV ASDIRECTED [facility] Last Admin: 10/14/16 20:46 Dose: 25 mls/hr Piperacillin Sod/Tazobactam (Sod 4.5 gm/ Sodium Chloride) 100 mls @ 25 mls/hr IV Q8H [facility] Last Admin: 10/15/16 05:32 Dose: 25 mls/hr Lorazepam (Ativan) 1 mg IV Q6H PRN PRN Reason: Anxiety Last Admin: 10/14/16 22:18 Dose: 1 mg Metoprolol Tartrate (Lopressor) 5 mg IVPUSH Q4H PRN PRN Reason: Tachycardia Miscellaneous Information (Remove Patch) 1 ea TRDERM Q72H [facility] Last Admin: 10/12/16 20:03 Dose: Not Given Morphine Sulfate (Morphine) 2 mg IVPUSH Q4H PRN PRN Reason: Pain Stop: 10/15/16 17:19 Ondansetron HCl (Zofran) 4 mg IV Q6H PRN PRN Reason: Nausea/Vomiting Senna (Senna) 8.6 mg PO DAILY PRN PRN Reason: Constipation Last Admin: 10/13/16 22:08 Dose: 8.6 mg Sodium Chloride (Saline Flush) 10 ml FLUSH ASDIRECTED PRN PRN Reason: Keep Vein Open Last Admin: 10/12/16 11:34 Dose: 10 ml Discontinued Medications Ampicillin Sodium (Ampicillin) Confirm Administered Dose 2 gm .ROUTE .STK-MED ONE Stop: 10/12/16 20:37 Last Admin: 10/12/16 21:41 Dose: Not Given Ampicillin Sodium (Ampicillin) Confirm Administered Dose 4 gm .ROUTE .STK-MED ONE Stop: 10/13/16 02:42 Last Admin: 10/13/16 03:01 Dose: Not Given Dexamethasone (Dexamethasone) 34 mg IV Q12HR [facility] Stop: 10/14/16 21:01 Dexamethasone (Dexamethasone) 34 mg IV ONETIME ONE Stop: 10/12/16 18:01 Dexamethasone (Dexamethasone) 34 mg IV ONETIME ONE Stop: 10/12/16 18:01 Last Admin: 10/12/16 21:41 Dose: Not Given Dexamethasone (Dexamethasone) 34 mg IV ONETIME ONE Stop: 10/12/16 20:46 Last Admin: 10/12/16 21:48 Dose: Not Given Fentanyl (Sublimaze) 25 mcg IVPUSH ONETIME ONE Stop: 10/12/16 11:11 Last Admin: 10/12/16 11:34 Dose: 25 mcg Fentanyl (Sublimaze) 25 mcg IVPUSH ONETIME ONE Stop: 10/12/16 15:03 Last Admin: 10/12/16 15:28 Dose: 25 mcg Potassium Chloride 10 meq/ (Premix) 100 mls @ 100 mls/hr IV ASDIRECTED [facility] Last Admin: 10/12/16 14:18 Dose: 100 mls/hr Sodium Chloride (Normal Saline) 1,000 mls @ 150 mls/hr IV ONETIME ONE Stop: 10/12/16 19:47 Last Admin: 10/12/16 13:37 Dose: 150 mls/hr Ceftriaxone Sodium 1 gm/ (Sodium Chloride) 100 mls @ 200 mls/hr IV ONETIME ONE Stop: 10/12/16 13:42 Last Admin: 10/12/16 13:40 Dose: 200 mls/hr Ampicillin Sodium 2 gm/ Sodium (Chloride) 100 mls @ 200 mls/hr IV Q4H [facility] Last Admin: 10/12/16 22:41 Dose: Not Given Vancomycin HCl 1 gm/Vancomycin HCl 500 mg/ Sodium Chloride 500 mls @ 125 mls/ hr IV Q12H [facility] Last Admin: 10/12/16 22:41 Dose: Not Given Ceftriaxone Sodium 2 gm/ (Sodium Chloride) 100 mls @ 200 mls/hr IV Q12H [facility] Sodium Chloride (Normal Saline) Confirm Administered Dose 100 mls @ as directed .ROUTE .STK-MED ONE Stop: 10/12/16 20:46 Last Admin: 10/12/16 21:32 Dose: Not Given Dexamethasone 34 mg/ Sodium (Chloride) 58.5 mls @ 117 mls/hr IV Q12H [facility] Stop: 10/14/16 21:29 Last Admin: 10/13/16 09:32 Dose: Not Given Sodium Chloride (Normal Saline) 1,000 mls @ 150 mls/hr IV ASDIRECTED [facility] Ampicillin Sodium 2 gm/ Sodium (Chloride) 100 mls @ 200 mls/hr IV Q4H [facility] Ampicillin Sodium 2 gm/ Sodium (Chloride) 100 mls @ 200 mls/hr IV Q4H [facility] Last Admin: 10/13/16 06:00 Dose: 200 mls/hr Vancomycin HCl 1 gm/Vancomycin HCl 500 mg/ Sodium Chloride 500 mls @ 125 mls/ hr IV Q12H [facility] Ceftriaxone Sodium 2 gm/ (Sodium Chloride) 100 mls @ 200 mls/hr IV Q12H [facility] Last Admin: 10/12/16 23:41 Dose: 200 mls/hr Vancomycin HCl 1 gm/Vancomycin HCl 500 mg/ Sodium Chloride 500 mls @ 333.33 mls /hr IV Q12H [facility] Last Admin: 10/13/16 00:38 Dose: 333.33 mls/hr Sodium Chloride (Normal Saline) Confirm Administered Dose 200 mls @ as directed .ROUTE .STK-MED ONE Stop: 10/13/16 02:46 Last Admin: 10/13/16 03:01 Dose: Not Given Ampicillin Sodium 2 gm/ Sodium (Chloride) 100 mls @ 200 mls/hr IV Q4H [facility] Last Admin: 10/13/16 11:06 Dose: 200 mls/hr Dexamethasone 34 mg/ Sodium (Chloride) 58.5 mls @ 117 mls/hr IV Q12H [facility] Stop: 10/14/16 21:59 Last Admin: 10/14/16 20:43 Dose: 117 mls/hr Piperacillin Sod/Tazobactam (Sod 4.5 gm/ Sodium Chloride) 100 mls @ 200 mls/hr IV ONETIME ONE Stop: 10/13/16 13:29 Last Admin: 10/13/16 13:05 Dose: 200 mls/hr Magnesium Sulfate (Pharmacy To Dose - Magnesium Replacement) 1 dose .XX ASDIRECTED [facility] Potassium Chloride (Pharmacy To Dose - Potassium Replacement) 1 dose .XX ASDIRECTED [facility] Vancomycin HCl (Pharmacy To Dose - Vancomycin) 1 dose .XX ONETIME ONE Stop: 10/12/16 17:13 - Exam Quality Assessment: DVT prophylaxis General: alert, oriented, cooperative, no acute distress HEENT: Pupils equal, Pupils reactive, EOMI, Mucous membr. moist/pink Neck: supple, trachea midline, other (decreased edema and erythema) Lungs: Normal Respiratory Effort Cardiovascular: Regular Rate, Regular Rhythm GI/Abdominal Exam: Normal Bowel Sounds, Soft, Non-Tender, No Organomegaly, No Distention (Male) Exam: Deferred Back Exam: Normal Inspection Extremities: Normal Inspection Skin: warm Neurological: no new focal deficit Psy/Mental Status: alert, normal affect, normal mood - Problem List & Annotations (1) Fever SNOMED Code(s): 301340304 Code(s): R50.9 - FEVER, UNSPECIFIED Status: Acute Current Visit: Yes Qualifiers: Fever type: unspecified Qualified Code(s): R50.9 - Fever, unspecified (2) Sepsis SNOMED Code(s): 60938680 Code(s): A41.9 - SEPSIS, UNSPECIFIED ORGANISM Status: Acute Current Visit : Yes Qualifiers: Sepsis type: sepsis due to unspecified organism Qualified Code(s): A41.9 - Sepsis, unspecified organism (3) Cellulitis SNOMED Code(s): 807460254 Code(s): L03.90 - CELLULITIS, UNSPECIFIED Status: Acute Current Visit: Yes (4) Parotid discomfort SNOMED Code(s): 91348524 Code(s): K11.9 - DISEASE OF SALIVARY GLAND, UNSPECIFIED Status: Acute Current Visit: Yes (5) Meningeal cancer SNOMED Code(s): 666787595 Code(s): C70.9 - MALIGNANT NEOPLASM OF MENINGES, UNSPECIFIED Status: Acute Current Visit: Yes (6) Encephalitis SNOMED Code(s): 33322790 Code(s): G04.90 - ENCEPHALITIS AND ENCEPHALOMYELITIS, UNSPECIFIED Status: Acute Current Visit: Yes - Problem List Review Problem List Initiated/Reviewed/Updated: Yes - My Orders Last 24 Hours: My Active Orders 10/14/16 09:00 Enoxaparin [Lovenox] 30 mg SUBCUT DAILY 10/14/16 14:30 Enema [RC] ASDIRECTED 10/15/16 09:00 Dexamethasone 4 mg PO TID - Plan Plan:: Assessment/Plan: Acute: End of Life Care - DNR/DNI with Comfort Measures - Has inoperable brain tumor, failed palliative radiation therapy - Antibiotic, O2, fluids, and vitals check. No labs! 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 - Add Flagyl for anaerobic coverage-->continue Acute Encephalopathy-->resolved - Likely 2/2 toxic/metabolic/infectious process---->resolved with treatment - Treat underlying cause Leukocytosis - WBC is 16.25 and CRP 16.1-->current status is unknown without lab draw, clinically has improved - 2/2 Above Hypokalemia - K 2.9 - Likely 2/2 poor intake Dehydration - 2/2 poor intake - has difficulty swallowing per family - IV fluids for hydration for now Chronic: HTN Constipation BPH Anxiety Plan: Continue Med-Surg Comfort Measures with conservative management Continue dysphagia diet-->reassess 10/16/16 SW/CM for d/c planning Code status: DNR/DNI Comfort Measures Prognosis: very poor Disposition suggest SNF, and MD Boo referral LOS>96 hours for treatment and placement; ongoing discussion regarding placement; code status DNR/DNI Comfort Care
[2016-10-15] MEDS: fentaNYL 12 MCG/HR Transdermal Patch TRDERM SCH (18:33)
[2016-10-15] MEDS ORDERED: NA PHOS M B RECTAL PRN (20:22)
[2016-10-15] MEDS ORDERED: NA PHOS DI BA RECTAL PRN (20:22)
[2016-10-15] MEDS: Sodium Chloride 0.9% 1,000 ML IV SCH (21:01)
[2016-10-15] MEDS: Meropenem 1 GM in Sodium Chloride 0.9% 100 ML IV SCH (21:03)
[2016-10-15] MEDS: LORazepam 2 MG/ML MDV IV PRN (21:04)
[2016-10-16] MEDS: Meropenem 1 GM in Sodium Chloride 0.9% 100 ML IV SCH (05:22)
--- NOTE | 2016-10-16 07:34 | PCM.PN ---
<Sheri Daniels - Last Filed: 10/16/16 13:31> - General Info Date of Service: 10/16/16 Admission Dx/Problem (Free Text): Patient has had dramatic improvements in condition since admission. Encephalopathy has essentially resolved. Facial swelling is significantly improved. He remains afebrile. Continues on Merrem and oral steroids. AMBULATORY CARE NURSE consult for swallowing now recommends regular diet with thin liquids. He continues to work with PT/OT. DC planning is ongoing, SW working diligently with family. Functional Status: Reports: Pain Controlled, Tolerating Diet, Ambulating, Urinating. Denies: New Symptoms - Review of Systems General: Reports: Weakness, Fatigue. 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 Denies: Sore Throat (denies pain to mouth, oropharynx or throat , denies dry mouth) Pulmonary: Reports: No Symptoms. Denies: Shortness of Breath, Pleuritic Chest Pain, Cough Cardiovascular: Reports: No Symptoms. Denies: Chest Pain, Palpitations Gastrointestinal: Reports: Constipation (improved). Denies: Abdominal Pain, Decreased Appetite, Diarrhea, Nausea, Vomiting Genitourinary: Reports: No Symptoms Neurological: Denies: Confusion Psychiatric: Reports: No Symptoms - Patient Data Vitals - Most Recent: Last Vital Signs Temp 97.3 F 10/15/16 19:16 Pulse 62 10/15/16 19:16 Resp 14 10/15/16 19:16 BP 118/62 10/15/16 19:16 Pulse Ox 92 L 10/15/16 19:16 Weight - Most Recent: 91.427 kg I&O - Last 24 Hours: Intake & Output 10/15/16 10/16/16 10/16/16 22:59 06:59 14:59 Intake Total 682 360 Balance 682 360 Shane Results Last 24 Hours: Microbiology 10/12/16 21:40 Wound Culture - Final Nose, Right Enterobacter Cloacae Klebsiella Oxytoca Med Orders - Current: Current Medications Acetaminophen (Tylenol) 650 mg RECTAL Q4H PRN PRN Reason: Pain (mild 1-3) Last Admin: 10/12/16 18:27 Dose: 650 mg Albuterol/Ipratropium (Duoneb 3.0-0.5 Mg/3 Ml) 3 ml NEB Q4H PRN PRN Reason: Shortness Of Breath/wheezing Bisacodyl (Dulcolax) 10 mg PO ASDIRECTED PRN PRN Reason: Constipation Last Admin: 10/13/16 22:08 Dose: 10 mg Bisacodyl (Dulcolax) 10 mg RECTAL DAILY PRN PRN Reason: Constipation Dexamethasone (Dexamethasone) [address] [facility] Last Admin: 10/15/16 21:02 Dose: 4 mg Enoxaparin Sodium (Lovenox) [address] [facility] Famotidine (Pepcid) [address] [facility] Last Admin: 10/15/16 21:03 Dose: 20 mg Fentanyl (Duragesic) [address] [facility] Last Admin: 10/15/16 18:33 Dose: 12 mcg Hydralazine HCl (Apresoline) 20 mg IVPUSH Q4H PRN PRN Reason: Hypertension Promethazine HCl 12.5 mg/ (Sodium Chloride) 50.5 mls @ 100 mls/hr IV Q6H PRN PRN Reason: Nausea/Vomiting Sodium Chloride (Normal Saline) 1,000 mls @ 25 mls/hr IV ASDIRECTED [facility] Last Admin: 10/15/16 21:01 Dose: 25 mls/hr Meropenem 1 gm/ Sodium (Chloride) 100 mls @ 200 mls/hr IV Q8H [facility] Last Admin: 10/16/16 05:22 Dose: 200 mls/hr Lorazepam (Ativan) 1 mg IV Q6H PRN PRN Reason: Anxiety Last Admin: 10/14/16 22:18 Dose: 1 mg Metoprolol Tartrate (Lopressor) 5 mg IVPUSH Q4H PRN PRN Reason: Tachycardia Miscellaneous Information (Remove Patch) [address] [facility] Last Admin: 10/15/16 18:32 Dose: 1 ea Multivitamins (Thera) [address] [facility] Non-Formulary Medication (Na Phos,M-B/Na Phos,Di-Ba) 1 applic RECTAL DAILY PRN PRN Reason: Constipation Ondansetron HCl (Zofran) 4 mg IV Q6H PRN PRN Reason: Nausea/Vomiting Senna (Senna) 8.6 mg PO DAILY PRN PRN Reason: Constipation Last Admin: 10/13/16 22:08 Dose: 8.6 mg Sodium Chloride (Saline Flush) 10 ml FLUSH ASDIRECTED PRN PRN Reason: Keep Vein Open Last Admin: 10/12/16 11:34 Dose: 10 ml Discontinued Medications Ampicillin Sodium (Ampicillin) Confirm Administered Dose 2 gm .ROUTE .STK-MED ONE Stop: 10/12/16 20:37 Last Admin: 10/12/16 21:41 Dose: Not Given Ampicillin Sodium (Ampicillin) Confirm Administered Dose 4 gm .ROUTE .STK-MED ONE Stop: 10/13/16 02:42 Last Admin: 10/13/16 03:01 Dose: Not Given Dexamethasone (Dexamethasone) [address] [facility] Stop: 10/14/16 21:01 Dexamethasone (Dexamethasone) 34 mg IV ONETIME ONE Stop: 10/12/16 18:01 Dexamethasone (Dexamethasone) 34 mg IV ONETIME ONE Stop: 10/12/16 18:01 Last Admin: 10/12/16 21:41 Dose: Not Given Dexamethasone (Dexamethasone) 34 mg IV ONETIME ONE Stop: 10/12/16 20:46 Last Admin: 10/12/16 21:48 Dose: Not Given Enoxaparin Sodium (Lovenox) [address] [facility] Last Admin: 10/15/16 08:01 Dose: 30 mg Fentanyl (Sublimaze) 25 mcg IVPUSH ONETIME ONE Stop: 10/12/16 11:11 Last Admin: 10/12/16 11:34 Dose: 25 mcg Fentanyl (Sublimaze) 25 mcg IVPUSH ONETIME ONE Stop: 10/12/16 15:03 Last Admin: 10/12/16 15:28 Dose: 25 mcg Potassium Chloride 10 meq/ (Premix) 100 mls @ 100 mls/hr IV ASDIRECTED [facility] Last Admin: 10/12/16 14:18 Dose: 100 mls/hr Sodium Chloride (Normal Saline) 1,000 mls @ 150 mls/hr IV ONETIME ONE Stop: 10/12/16 19:47 Last Admin: 10/12/16 13:37 Dose: 150 mls/hr Ceftriaxone Sodium 1 gm/ (Sodium Chloride) 100 mls @ 200 mls/hr IV ONETIME ONE Stop: 10/12/16 13:42 Last Admin: 10/12/16 13:40 Dose: 200 mls/hr Ampicillin Sodium 2 gm/ Sodium (Chloride) 100 mls @ 200 mls/hr IV Q4H [facility] Last Admin: 10/12/16 22:41 Dose: Not Given Vancomycin HCl 1 gm/Vancomycin HCl 500 mg/ Sodium Chloride 500 mls @ 125 mls/ hr IV Q12H [facility] Last Admin: 10/12/16 22:41 Dose: Not Given Ceftriaxone Sodium 2 gm/ (Sodium Chloride) 100 mls @ 200 mls/hr IV Q12H [facility] Metronidazole 500 mg/ Premix 100 mls @ 100 mls/hr IV Q8H [facility] Last Admin: 10/15/16 18:31 Dose: 100 mls/hr Sodium Chloride (Normal Saline) Confirm Administered Dose 100 mls @ as directed .ROUTE .[employer] ONE Stop: 10/12/16 20:46 Last Admin: 10/12/16 21:32 Dose: Not Given Dexamethasone 34 mg/ Sodium (Chloride) 58.5 mls @ 117 mls/hr IV Q12H [facility] Stop: 10/14/16 21:29 Last Admin: 10/13/16 09:32 Dose: Not Given Sodium Chloride (Normal Saline) 1,000 mls @ 150 mls/hr IV ASDIRECTED [facility] Ampicillin Sodium 2 gm/ Sodium (Chloride) 100 mls @ 200 mls/hr IV Q4H [facility] Ampicillin Sodium 2 gm/ Sodium (Chloride) 100 mls @ 200 mls/hr IV Q4H [facility] Last Admin: 10/13/16 06:00 Dose: 200 mls/hr Vancomycin HCl 1 gm/Vancomycin HCl 500 mg/ Sodium Chloride 500 mls @ 125 mls/ hr IV Q12H [facility] Ceftriaxone Sodium 2 gm/ (Sodium Chloride) 100 mls @ 200 mls/hr IV Q12H [facility] Last Admin: 10/12/16 23:41 Dose: 200 mls/hr Vancomycin HCl 1 gm/Vancomycin HCl 500 mg/ Sodium Chloride 500 mls @ 333.33 mls /hr IV Q12H [facility] Last Admin: 10/13/16 00:38 Dose: 333.33 mls/hr Sodium Chloride (Normal Saline) Confirm Administered Dose 200 mls @ as directed .ROUTE .[facility] ONE Stop: 10/13/16 02:46 Last Admin: 10/13/16 03:01 Dose: Not Given Ampicillin Sodium 2 gm/ Sodium (Chloride) 100 mls @ 200 mls/hr IV Q4H [facility] Last Admin: 10/13/16 11:06 Dose: 200 mls/hr Dexamethasone 34 mg/ Sodium (Chloride) 58.5 mls @ 117 mls/hr IV Q12H [facility] Stop: 10/14/16 21:59 Last Admin: 10/14/16 20:43 Dose: 117 mls/hr Piperacillin Sod/Tazobactam (Sod 4.5 gm/ Sodium Chloride) 100 mls @ 200 mls/hr IV ONETIME ONE Stop: 10/13/16 13:29 Last Admin: 10/13/16 13:05 Dose: 200 mls/hr Piperacillin Sod/Tazobactam (Sod 4.5 gm/ Sodium Chloride) 100 mls @ 25 mls/hr IV Q8H [facility] Last Admin: 10/15/16 14:07 Dose: 25 mls/hr Magnesium Sulfate (Pharmacy To Dose - Magnesium Replacement) [address] [facility] Morphine Sulfate (Morphine) 2 mg IVPUSH Q4H PRN PRN Reason: Pain Stop: 10/15/16 17:19 Potassium Chloride (Pharmacy To Dose - Potassium Replacement) [address] [facility] Vancomycin HCl (Pharmacy To Dose - Vancomycin) 1 dose .XX ONETIME ONE Stop: 10/12/16 17:13 - Exam Quality Assessment: DVT Prophylaxis General: Alert, Oriented, Cooperative, No Acute Distress HEENT: Other (left eye is with pupil to be 3mm in diameter, reactive to light. Right eye lid is swollen shut, opening of eye lid reveals swollen cornea/sclera , pupil is fixed and nonreactive to light. Ears - right ear with small amt of cerumen blocking TM, left ear canal clear TM intact and unremarkable. Nares bilaterally are patent, no erythema, irritation, polyps, growths or other abnormalities noted. Drainage is almost constant from right nares. Mouth is with mucous membranes appearing moist, tongue is dry. Teeth in good repair. OP is with swelling to right side with appearance of radiation burn to posterior rt pharynx. Patient states not painful and feels "squishy". Right side of face/ cheek is mildly swollen, minimal erythema. Mild tenerness over parotid region, no tenderness or bogginess over sinuses bilateral frontal or maxillary. 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 OF MENINGES, UNSPECIFIED Status: Chronic Priority: High Current Visit: Yes (2) Cellulitis SNOMED Code(s): 589419834 Code(s): L03.90 - CELLULITIS, UNSPECIFIED Status: Acute Priority: High Current Visit: Yes Qualifiers: Site of cellulitis: face Qualified Code(s): L03.211 - Cellulitis of face (3) Parotid discomfort SNOMED Code(s): 82198226 Code(s): K11.9 - DISEASE OF [place], UNSPECIFIED Status: Acute Priority: High Current Visit: Yes (4) Constipation SNOMED Code(s): 94636417 Code(s): K59.00 - CONSTIPATION, UNSPECIFIED Status: Chronic Priority: Medium Current Visit: Yes (5) Encephalitis SNOMED Code(s): 30004141 Code(s): G04.90 - ENCEPHALITIS AND ENCEPHALOMYELITIS, UNSPECIFIED Status: Resolved Priority: High Current Visit: Yes (6) Sepsis SNOMED Code(s): 88285415 Code(s): A41.9 - SEPSIS, UNSPECIFIED ORGANISM Status: Resolved Priority: High Current Visit: Yes Qualifiers: Sepsis type: sepsis due to unspecified organism Qualified Code(s): A41.9 - Sepsis, unspecified organism (7) Fever SNOMED Code(s): 424630572 Code(s): R50.9 - FEVER, UNSPECIFIED Status: Resolved Priority: High Current Visit: Yes Qualifiers: Fever type: unspecified Qualified Code(s): R50.9 - Fever, unspecified - Problem List Review Problem List Initiated/Reviewed/Updated: Yes - Plan Plan:: Assessment/Plan: Acute: End of Life Care - DNR/DNI with Comfort Measures - Has inoperable brain tumor, failed palliative radiation therapy - Antibiotic, O2, fluids, and vitals check. - Discussed further care/dx options with family today; patient and agree to lab evaluation and repeat MRI of brain today as he has had such a dramatic improvement over course of hospital stay. 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 in the past. Has received recent radiation treatment with Dr. Kelley in [facility] - Patient agreeable to repeat MRI of brain today to follow status of tumor with recent transition of events/illness Sepsis--likely resolved as is hemodynamically stable, afebrile now - 2/2 Below - Limited treatment per family's request- abx on board- Merrem at this time Meningo-Encephalitis--improving to resolved - Family had previously refused any invasive procedures to include imaging study as outlook and prognosis was grim; now has had dramatic improvement and turnaround; agreement to MRI of brain today. Scheduled and pending Rhinosinusitis and Right Parotitis--drainage continues, swelling is improved- drainage is now clear - [place] nasal fluids-->minimal, culture with klebsiella and enterobacter- sensitive to meropenem - Cannot r/o CSF leak: frontal sinus--MRI ordered as noted above today Acute Encephalopathy-->resolved - Likely 2/2 toxic/metabolic/infectious process---->resolved with treatment - Treat underlying cause as above Leukocytosis - WBC is 16.25 and CRP 16.1-->15K today - 2/2 Above and steroid use Hypokalemia- Resolved - K 2.9 - Likely 2/2 poor intake Dehydration- Resolved - 2/2 poor intake - has difficulty swallowing- AMBULATORY CARE NURSE consult - IV fluids for hydration for now Likely radiation burn to oropharynx -Magic Mouth wash QID -ENT referral for eval/recommendations following discharge -States no dry mouth as of yet and no pain; encouraged to push fluids. Chronic: HTN--stable Constipation BPH Anxiety Plan: Continue Med-Surg with Comfort Measures AMBULATORY CARE NURSE recommendations- regular diet, thin liquids SW/CM for d/c planning Code status: DNR/DNI Comfort Measures Disposition suggest SNF LOS>96 hours for treatment and placement; ongoing discussion regarding placement; code status DNR/DNI Comfort Care <Calli Alberto - Last Filed: 10/16/16 16:04> - Patient Data Vitals - Most Recent: Last Vital Signs Temp 36.7 C 10/16/16 07:42 Pulse 59 L 10/16/16 07:42 Resp 16 10/16/16 07:42 BP 130/78 10/16/16 07:42 Pulse Ox 94 L 10/16/16 07:42 I&O - Last 24 Hours: Intake & Output 10/16/16 10/16/16 10/16/16 06:59 14:59 22:59 Intake Total 360 540 700 Output Total 600 Balance 360 540 100 Lab Results Last 24 Hours: Laboratory Results - last 24 hr 10/16/16 10/16/16 Range/Units 12:25 12:25 WBC 15.02 H (4.23-9.07) K/mm3 RBC 4.26 L (4.63-6.08) M/mm3 Hgb 13.3 L (13.7-17.5) gm/L Hct 39.5 L (40.1-51.0) % MCV 92.7 H (79.0-92.2) fl MCH 31.2 (25.7-32.2) pg MCHC 33.7 (32.2-35.5) g/dl RDW Std Deviation 45.4 H (35.1-43.9) fL Plt Count 271 (163-337) K/mm3 MPV 9.5 (9.4-12.3) fl Neut % (Auto) 86.3 H (34.0-67.9) % Lymph % (Auto) 3.5 L (21.8-53.1) % [place] % (Auto) 9.7 (5.3-12.2) % Eos % (Auto) 0 L (0.8-7.0) Baso % (Auto) 0.1 (0.1-1.2) % Neut # (Auto) 12.95 H (1.78-5.38) K/mm3 Lymph # (Auto) 0.53 L (1.32-3.57) K/mm3 [place] # (Auto) 1.46 H (0.30-0.82) K/mm3 Eos # (Auto) 0.00 L (0.04-0.54) K/mm3 Baso # (Auto) 0.02 (0.01-0.08) K/mm3 Manual Slide Review Abnormal smear Sodium 143 (136-145) mEq/L Potassium 3.5 (3.5-5.1) mEq/L Chloride 108 H (98-107) mEq/L Carbon Dioxide 30 (21-32) mEq/L Anion Gap 8.5 (5-15) BUN 24 H (7-18) mg/dL Creatinine 1.0 (0.7-1.3) mg/dL Est Cr Clr Drug Dosing 74.33 mL/min Estimated GFR (MDRD) > 60 (>60) mL/min BUN/Creatinine Ratio 24.0 H (14-18) Glucose 156 H (83-115) mg/dL Calcium 8.4 L (8.5-10.1) mg/dL Magnesium 2.2 (1.8-2.4) mg/dl C-Reactive Protein 4.0 H* (<1.0) mg/dL Shnae Results Last 24 Hours: Microbiology 10/12/16 21:40 Wound Culture - Final Nose, Right Enterobacter Cloacae Klebsiella Oxytoca Med Orders - Current: Current Medications Acetaminophen (Tylenol) 650 mg RECTAL Q4H PRN PRN Reason: Pain (mild 1-3) Last Admin: 10/12/16 18:27 Dose: 650 mg Albuterol/Ipratropium (Duoneb 3.0-0.5 Mg/3 Ml) 3 ml NEB Q4H PRN PRN Reason: Shortness Of Breath/wheezing Bisacodyl (Dulcolax) 10 mg PO ASDIRECTED PRN PRN Reason: Constipation Last Admin: 10/13/16 22:08 Dose: 10 mg Bisacodyl (Dulcolax) 10 mg RECTAL DAILY PRN PRN Reason: Constipation Dexamethasone (Dexamethasone) [address] [facility] Last Admin: 10/16/16 15:00 Dose: 4 mg Diphenhydr/Magaldrate/Simeth/Lidoca (First-Mouthwash Blm Susp) [address] [facility] Enoxaparin Sodium (Lovenox) [address] [facility] Last Admin: 10/16/16 09:41 Dose: 40 mg Famotidine (Pepcid) [address] [facility] Last Admin: 10/16/16 09:41 Dose: 20 mg Fentanyl (Duragesic) [address] [facility] Last Admin: 10/15/16 18:33 Dose: 12 mcg Hydralazine HCl (Apresoline) 20 mg IVPUSH Q4H PRN PRN Reason: Hypertension Promethazine HCl 12.5 mg/ (Sodium Chloride) 50.5 mls @ 100 mls/hr IV Q6H PRN PRN Reason: Nausea/Vomiting Sodium Chloride (Normal Saline) 1,000 mls @ 25 mls/hr IV ASDIRECTED [facility] Last Admin: 10/15/16 21:01 Dose: 25 mls/hr Meropenem 500 mg/ Sodium (Chloride) 100 mls @ 200 mls/hr IV Q6H [facility] Last Admin: 10/16/16 12:17 Dose: 200 mls/hr Lorazepam (Ativan) 1 mg IV Q6H PRN PRN Reason: Anxiety Last Admin: 10/14/16 22:18 Dose: 1 mg Metoprolol Tartrate (Lopressor) 5 mg IVPUSH Q4H PRN PRN Reason: Tachycardia Miscellaneous Information (Remove Patch) [address] [facility] Last Admin: 10/15/16 18:32 Dose: 1 ea Morphine Sulfate (Morphine) 1 mg IVPUSH Q4H PRN PRN Reason: Pain Last Admin: 10/16/16 15:55 Dose: 1 mg Multivitamins (Thera) [address] [facility] Last Admin: 10/16/16 09:40 Dose: 1 each Non-Formulary Medication (Na Phos,M-B/Na Phos,Di-Ba) 1 applic RECTAL DAILY PRN PRN Reason: Constipation Ondansetron HCl (Zofran) 4 mg IV Q6H PRN PRN Reason: Nausea/Vomiting Senna (Senna) 8.6 mg PO DAILY PRN PRN Reason: Constipation Last Admin: 10/13/16 22:08 Dose: 8.6 mg Sodium Chloride (Saline Flush) 10 ml FLUSH ASDIRECTED PRN PRN Reason: Keep Vein Open Last Admin: 10/12/16 11:34 Dose: 10 ml Discontinued Medications Ampicillin Sodium (Ampicillin) Confirm Administered Dose 2 gm .ROUTE .STK-MED ONE Stop: 10/12/16 20:37 Last Admin: 10/12/16 21:41 Dose: Not Given Ampicillin Sodium (Ampicillin) Confirm Administered Dose 4 gm .ROUTE .STK-MED ONE Stop: 10/13/16 02:42 Last Admin: 10/13/16 03:01 Dose: Not Given Dexamethasone (Dexamethasone) [address] [facility] Stop: 10/14/16 21:01 Dexamethasone (Dexamethasone) 34 mg IV ONETIME ONE Stop: 10/12/16 18:01 Dexamethasone (Dexamethasone) 34 mg IV ONETIME ONE Stop: 10/12/16 18:01 Last Admin: 10/12/16 21:41 Dose: Not Given Dexamethasone (Dexamethasone) 34 mg IV ONETIME ONE Stop: 10/12/16 20:46 Last Admin: 10/12/16 21:48 Dose: Not Given Enoxaparin Sodium (Lovenox) [address] [facility] Last Admin: 10/15/16 08:01 Dose: 30 mg Famotidine (Pepcid) [address] [facility] Last Admin: 10/15/16 21:03 Dose: 20 mg Fentanyl (Sublimaze) 25 mcg IVPUSH ONETIME ONE Stop: 10/12/16 11:11 Last Admin: 10/12/16 11:34 Dose: 25 mcg Fentanyl (Sublimaze) 25 mcg IVPUSH ONETIME ONE Stop: 10/12/16 15:03 Last Admin: 10/12/16 15:28 Dose: 25 mcg Gadobenate Dimeglumine (Multihance) 20 ml IVPUSH ONETIME ONE Stop: 10/16/16 13:27 Last Admin: 10/16/16 13:56 Dose: 20 ml Potassium Chloride 10 meq/ (Premix) 100 mls @ 100 mls/hr IV ASDIRECTED [facility] Last Admin: 10/12/16 14:18 Dose: 100 mls/hr Sodium Chloride (Normal Saline) 1,000 mls @ 150 mls/hr IV ONETIME ONE Stop: 10/12/16 19:47 Last Admin: 10/12/16 13:37 Dose: 150 mls/hr Ceftriaxone Sodium 1 gm/ (Sodium Chloride) 100 mls @ 200 mls/hr IV ONETIME ONE Stop: 10/12/16 13:42 Last Admin: 10/12/16 13:40 Dose: 200 mls/hr Ampicillin Sodium 2 gm/ Sodium (Chloride) 100 mls @ 200 mls/hr IV Q4H [facility] Last Admin: 10/12/16 22:41 Dose: Not Given Vancomycin HCl 1 gm/Vancomycin HCl 500 mg/ Sodium Chloride 500 mls @ 125 mls/ hr IV Q12H [facility] Last Admin: 10/12/16 22:41 Dose: Not Given Ceftriaxone Sodium 2 gm/ (Sodium Chloride) 100 mls @ 200 mls/hr IV Q12H [facility] Metronidazole 500 mg/ Premix 100 mls @ 100 mls/hr IV Q8H [facility] Last Admin: 10/15/16 18:31 Dose: 100 mls/hr Sodium Chloride (Normal Saline) Confirm Administered Dose 100 mls @ as directed .ROUTE .[facility] ONE Stop: 10/12/16 20:46 Last Admin: 10/12/16 21:32 Dose: Not Given Dexamethasone 34 mg/ Sodium (Chloride) 58.5 mls @ 117 mls/hr IV Q12H [facility] Stop: 10/14/16 21:29 Last Admin: 10/13/16 09:32 Dose: Not Given Sodium Chloride (Normal Saline) 1,000 mls @ 150 mls/hr IV ASDIRECTED [facility] Ampicillin Sodium 2 gm/ Sodium (Chloride) 100 mls @ 200 mls/hr IV Q4H [facility] Ampicillin Sodium 2 gm/ Sodium (Chloride) 100 mls @ 200 mls/hr IV Q4H [facility] Last Admin: 10/13/16 06:00 Dose: 200 mls/hr Vancomycin HCl 1 gm/Vancomycin HCl 500 mg/ Sodium Chloride 500 mls @ 125 mls/ hr IV Q12H [facility] Ceftriaxone Sodium 2 gm/ (Sodium Chloride) 100 mls @ 200 mls/hr IV Q12H [facility] Last Admin: 10/12/16 23:41 Dose: 200 mls/hr Vancomycin HCl 1 gm/Vancomycin HCl 500 mg/ Sodium Chloride 500 mls @ 333.33 mls /hr IV Q12H [facility] Last Admin: 10/13/16 00:38 Dose: 333.33 mls/hr Sodium Chloride (Normal Saline) Confirm Administered Dose 200 mls @ as directed .ROUTE .[facility] ONE Stop: 10/13/16 02:46 Last Admin: 10/13/16 03:01 Dose: Not Given Ampicillin Sodium 2 gm/ Sodium (Chloride) 100 mls @ 200 mls/hr IV Q4H [facility] Last Admin: 10/13/16 11:06 Dose: 200 mls/hr Dexamethasone 34 mg/ Sodium (Chloride) 58.5 mls @ 117 mls/hr IV Q12H [facility] Stop: 10/14/16 21:59 Last Admin: 10/14/16 20:43 Dose: 117 mls/hr Piperacillin Sod/Tazobactam (Sod 4.5 gm/ Sodium Chloride) 100 mls @ 200 mls/hr IV ONETIME ONE Stop: 10/13/16 13:29 Last Admin: 10/13/16 13:05 Dose: 200 mls/hr Piperacillin Sod/Tazobactam (Sod 4.5 gm/ Sodium Chloride) 100 mls @ 25 mls/hr IV Q8H [facility] Last Admin: 10/15/16 14:07 Dose: 25 mls/hr Meropenem 1 gm/ Sodium (Chloride) 100 mls @ 200 mls/hr IV Q8H [facility] Last Admin: 10/16/16 05:22 Dose: 200 mls/hr Iopamidol (Isovue-300 (61%)) 100 ml IVPUSH ONETIME ONE Stop: 10/16/16 12:41 Last Admin: 10/16/16 14:05 Dose: 100 ml Magnesium Sulfate (Pharmacy To Dose - Magnesium Replacement) [address] [facility] Meropenem (Merrem) Confirm Administered Dose 500 mg .ROUTE .STK-MED ONE Stop: 10/16/16 11:42 Last Admin: 10/16/16 12:07 Dose: Not Given Morphine Sulfate (Morphine) 2 mg IVPUSH Q4H PRN PRN Reason: Pain Stop: 10/15/16 17:19 Morphine Sulfate (Morphine) Confirm Administered Dose 2 mg .ROUTE .STK-MED ONE Stop: 10/16/16 15:49 Last Admin: 10/16/16 15:56 Dose: Not Given Potassium Chloride (Pharmacy To Dose - Potassium Replacement) [address] [facility] Sodium Chloride (Saline Flush) 10 ml FLUSH ONETIME PRN PRN Reason: IV FLUSH Stop: 10/16/16 16:00 Last Admin: 10/16/16 14:05 Dose: 10 ml Vancomycin HCl (Pharmacy To Dose - Vancomycin) 1 dose .XX ONETIME ONE Stop: 10/12/16 17:13 - Problem List & Annotations (1) Fever SNOMED Code(s): 657789333 Code(s): R50.9 - FEVER, UNSPECIFIED Status: Resolved Priority: High Current Visit: Yes Qualifiers: Fever type: unspecified Qualified Code(s): R50.9 - Fever, unspecified (2) Sepsis SNOMED Code(s): 27718162 Code(s): A41.9 - SEPSIS, UNSPECIFIED ORGANISM Status: Resolved Priority: High Current Visit: Yes Qualifiers: Sepsis type: sepsis due to unspecified organism Qualified Code(s): A41.9 - Sepsis, unspecified organism (3) Cellulitis SNOMED Code(s): 535095003 Code(s): L03.90 - CELLULITIS, UNSPECIFIED Status: Acute Priority: High Current Visit: Yes Qualifiers: Site of cellulitis: face Qualified Code(s): L03.211 - Cellulitis of face (4) Parotid discomfort SNOMED Code(s): 75878202 Code(s): K11.9 - DISEASE OF [place], UNSPECIFIED Status: Acute Priority: High Current Visit: Yes (5) Meningeal cancer SNOMED Code(s): 440303288 Code(s): C70.9 - MALIGNANT NEOPLASM OF MENINGES, UNSPECIFIED Status: Chronic Priority: High Current Visit: Yes (6) Encephalitis SNOMED Code(s): 09703600 Code(s): G04.90 - ENCEPHALITIS AND ENCEPHALOMYELITIS, UNSPECIFIED Status: Resolved Priority: High Current Visit: Yes - My Orders Last 24 Hours: My Active Orders 10/15/16 20:22 Na Phos,M-B/Na Phos,Di-Ba 1 applic RECTAL DAILY PRN 10/16/16 09:00 Enoxaparin [Lovenox] 40 mg SUBCUT DAILY Multivitamins,Therapeutic [Thera] 1 each PO DAILY 10/16/16 12:00 Meropenem [Merrem] 500 mg Sodium Chloride 0.9% [Normal Saline] 100 ml IV Q6H 10/16/16 15:45 Morphine 1 mg IVPUSH Q4H PRN 10/16/16 Lunch Regular Diet [DIET] - Plan Plan:: Radiographic imaging, dictation pending; images have been reviewed--extensive bulky tumor with erosion into oral cavity noted on physical exam.
[2016-10-16] MEDS: Multivitamins,Therapeutic Tab PO SCH (09:40)
[2016-10-16] MEDS: Enoxaparin 40 MG/0.4 ML Syringe SUBCUT SCH (09:41)
[2016-10-16] MEDS: Dexamethasone 4 MG Tab PO SCH ×3 (09:41→20:17)
[2016-10-16] MEDS: Famotidine 20 MG Tab PO SCH ×2 (09:41→20:17)
[2016-10-16] MEDS ORDERED: Meropenem 500 MG SDV ONE (11:41)
[2016-10-16] MEDS: Meropenem 500 MG in Sodium Chloride 0.9% 100 ML IV SCH ×2 (12:17→17:37)
[2016-10-16] MEDS ORDERED: Iopamidol 612 MG/ML 100 ML Bottle IVPUSH ONE (12:40)
[2016-10-16] MEDS ORDERED: Diphenhydramine/Lidocaine/MagAl/Simethicone 119 ML Bottle PO SCH (13:15)
[2016-10-16] MEDS ORDERED: Gadobenate Dimeglumine 529 MG/ML 20 ML SDV IVPUSH ONE (13:26)
[2016-10-16] MEDS: Sodium Chloride 0.9% 10 ML Syringe FLUSH PRN ×2 (13:57→14:05)
--- NOTE | 2016-10-16 15:44 | CT ---
CT facial bones Technique: Multiple axial, coronal and sagittal images were obtained of the facial bones. Study was obtained with IV contrast. Comparison: Recent MRI performed on the same day. Comparison: Previous MRI brain of 12/23/15 Findings: Previously noted mass involving the right cavernous sinus is again noted. There is involvement and extension into the sphenoid sinus, nasal cavity with destruction of trabecula as well as destruction of the medial orbital wall on the right side. Soft tissue extension into the retrobulbar region is seen causing right-sided proptosis. Mass is seen extending into the masseter space with destruction of the right side of the mandible. Bony spiculation is seen into this mass from the mandible. Extension lateral to the mandible is seen with mass invading the masseter muscle. Involvement of the pterygoid muscles are also seen. Mass extends inferiorly to cause mass effect upon the right-sided oral cavity. Mass or adjacent enlarged lymph nodes extend more inferiorly into the right side of the neck. Degenerative change seen within the spine. Opacified right maxillary sinus is seen from the mass with destruction of the posterior maxillary wall. Medial wall of the maxillary sinus shows erosion with extension of mass into the nasal cavity. Destruction of portions of the nasal septal are seen. Extensive destruction within ethmoid sinuses with additional mass seen in this sinus. Mass also noted within the right frontal sinus. Impression: 1. Diffuse enlarging mass from prior study of 12/23/15. Extracranial extension is now seen on the right side as described above. Intracranial extension is also seen better identified on MRI. Diagnostic code #9 Buttermaker Helper called Mireille Corral at [id number] on 10/16/2016
--- NOTE | 2016-10-16 15:44 | MR ---
MRI brain (with and without contrast) Technique: T1 sagittal; T2, T2 FLAIR, diffusion and T1 axial; T1 coronal; post-gadolinium T1 axial and post-gadolinium T1 coronal images were obtained through the brain. Comparison: Previous MRI brain of 12/23/15. 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 There is invasion of this mass into the right maxillary sinus as well as into the nasal cavity on the right side and sphenoid sinus on the right side. More soft tissue mass seen within the mandibular space. There is bony erosion of part of the right sided mandible with CT exam showing some bony spiculation within this mass secondary to the mandibular erosion. Mass involves the right masseter muscle as well as the right pterygoid muscles both medial and lateral. There is mass effect upon the oropharynx secondary to inferior extension of this mass on the right side. There is destruction of nasal bony septum as well as a lateral nasal wall and medial orbital wall on the right side. There is extraocular extension on the right side causing proptosis. There is involvement of right temporal lobe as well as mass involving the extradural space putting mass effect on the right side of the brainstem. This is fairly similar to prior exam. Slight increased extension of mass into the right superior temporal region is seen with low signal edema seen on the T1 sequence around portions of this mass. Mild mass effect seen to the left side. Slight effacement of the right lateral ventricular body and occipital horn is seen. Impression: 1. Extensive worsening of the right sided mass. Involvement of the right mandible is seen as well as extension inferiorly causing mass effect upon the oropharynx. Bony erosion also seen into the nasal cavity and medial right orbit. Retro-orbital extension causes right-sided proptosis. Mass involves the right maxillary sinus. More complete description of this mass as noted above. Diagnostic code #9 File Machine Operator called report to Sheri Corral at [id number] on 10/16/2016
[2016-10-16] MEDS ORDERED: Morphine 2 MG/ML Syringe ONE (15:48)
[2016-10-16] MEDS: Morphine 2 MG/ML Syringe IVPUSH PRN ×2 (15:55→20:15)
[2016-10-16] MEDS ORDERED: Acetaminophen 325 MG Tab PO PRN (18:09)
[2016-10-17] MEDS: Meropenem 500 MG in Sodium Chloride 0.9% 100 ML IV SCH ×5 (00:05→23:56)
[2016-10-17] MEDS ORDERED: Polyethylene Glycol 3350 Powder 17 GM Packet PO PRN (06:39)
[2016-10-17] MEDS: Famotidine 20 MG Tab PO SCH ×2 (08:42→20:30)
[2016-10-17] MEDS: Dexamethasone 4 MG Tab PO SCH ×3 (08:42→20:30)
[2016-10-17] MEDS: Enoxaparin 40 MG/0.4 ML Syringe SUBCUT SCH (08:42)
[2016-10-17] MEDS: Multivitamins,Therapeutic Tab PO SCH (08:42)
[2016-10-17] MEDS ORDERED: fentaNYL 25 MCG/HR Transdermal Patch TRDERM SCH (12:45)
[2016-10-17] MEDS: Morphine 2 MG/ML Syringe IVPUSH PRN ×2 (12:46→20:30)
--- NOTE | 2016-10-17 12:52 | PCM.PN ---
<Sheri Daniels - Last Filed: 10/17/16 12:58> - General Info Date of Service: 10/17/16 Admission Dx/Problem (Free Text): Patient has had dramatic improvements in condition since admission. Encephalopathy has essentially resolved. Facial swelling is significantly improved. He remains afebrile. Continues on Merrem and oral steroids. BUSINESS JOB TITLES consult for swallowing now recommends regular diet with thin liquids. He continues to work with PT/OT. DC planning is ongoing, SW working diligently with family; plans DC to [facility] on after abx completed. Functional Status: Reports: Tolerating Diet, Ambulating, Urinating, Other (Pain increased slightly- on fentanyl patch 12mcg- will increase). Denies: New Symptoms - Review of Systems General: Reports: Weakness (significantly improved but still present), Fatigue HEENT: Reports: Rhinitis (clear rhinorrhea, persistent from right nares), Other (mild rt sided facial pain). Denies: Dysphasia, Ear Pain, Eye Pain, Headaches, Sore Throat Pulmonary: Reports: No Symptoms Cardiovascular: Reports: No Symptoms Gastrointestinal: Reports: No Symptoms Genitourinary: Reports: No Symptoms Musculoskeletal: Reports: No Symptoms. Denies: Neck Pain Neurological: Reports: No Symptoms, Numbness (mild to rt side of face), Paresthesia (mild to rt side of face). Denies: Headache Psychiatric: Reports: No Symptoms - Patient Data Vitals - Most Recent: Last Vital Signs Temp 97.7 F 10/17/16 07:46 Pulse 63 10/17/16 07:46 Resp 14 10/17/16 07:46 BP 135/70 10/17/16 07:46 Pulse Ox 97 10/17/16 07:46 Weight - Most Recent: 92.278 kg I&O - Last 24 Hours: Intake & Output 10/16/16 10/17/16 10/17/16 22:59 06:59 14:59 Intake Total 1553 1150 410 Output Total 600 1400 Balance 953 -250 410 Lab Results Last 24 Hours: Laboratory Results - last 24 hr 10/16/16 10/16/16 10/17/16 Range/Units 12:25 12:25 07:05 WBC 15.02 H 12.74 H (4.23-9.07) K/mm3 RBC 4.26 L 4.33 L (4.63-6.08) M/mm3 Hgb 13.3 L 13.3 L (13.7-17.5) gm/L Hct 39.5 L 40.2 (40.1-51.0) % MCV 92.7 H 92.8 H (79.0-92.2) fl MCH 31.2 30.7 (25.7-32.2) pg MCHC 33.7 33.1 (32.2-35.5) g/dl RDW Std Deviation 45.4 H 45.7 H (35.1-43.9) fL Plt Count 271 270 (163-337) K/mm3 MPV 9.5 9.6 (9.4-12.3) fl Neut % (Auto) 86.3 H 85.6 H (34.0-67.9) % Lymph % (Auto) 3.5 L 5.8 L (21.8-53.1) % Swain % (Auto) 9.7 8.0 (5.3-12.2) % Eos % (Auto) 0 L 0 L (0.8-7.0) Baso % (Auto) 0.1 0.0 L (0.1-1.2) % Neut # (Auto) 12.95 H 10.90 H (1.78-5.38) K/mm3 Lymph # (Auto) 0.53 L 0.74 L (1.32-3.57) K/mm3 Swain # (Auto) 1.46 H 1.02 H (0.30-0.82) K/mm3 Eos # (Auto) 0.00 L 0.00 L (0.04-0.54) K/mm3 Baso # (Auto) 0.02 0.00 L (0.01-0.08) K/mm3 Manual Slide Review Abnormal smear Abnormal smear Sodium 143 (136-145) mEq/L Potassium 3.5 (3.5-5.1) mEq/L Chloride 108 H (98-107) mEq/L Carbon Dioxide 30 (21-32) mEq/L Anion Gap 8.5 (5-15) BUN 24 H (7-18) mg/dL Creatinine 1.0 (0.7-1.3) mg/dL Est Cr Clr Drug Dosing 74.33 mL/min Estimated GFR (MDRD) > 60 (>60) mL/min BUN/Creatinine Ratio 24.0 H (14-18) Glucose 156 H (83-115) mg/dL Calcium 8.4 L (8.5-10.1) mg/dL Magnesium 2.2 (1.8-2.4) mg/dl C-Reactive Protein 4.0 H* (<1.0) mg/dL 10/17/16 Range/Units 07:05 WBC (4.23-9.07) K/mm3 RBC (4.63-6.08) M/mm3 Hgb (13.7-17.5) gm/L Hct (40.1-51.0) % MCV (79.0-92.2) fl MCH (25.7-32.2) pg MCHC (32.2-35.5) g/dl RDW Std Deviation (35.1-43.9) fL Plt Count (163-337) K/mm3 MPV (9.4-12.3) fl Neut % (Auto) (34.0-67.9) % Lymph % (Auto) (21.8-53.1) % Swain % (Auto) (5.3-12.2) % Eos % (Auto) (0.8-7.0) Baso % (Auto) (0.1-1.2) % Neut # (Auto) (1.78-5.38) K/mm3 Lymph # (Auto) (1.32-3.57) K/mm3 Swain # (Auto) (0.30-0.82) K/mm3 Eos # (Auto) (0.04-0.54) K/mm3 Baso # (Auto) (0.01-0.08) K/mm3 Manual Slide Review Sodium 142 (136-145) mEq/L Potassium 4.1 (3.5-5.1) mEq/L Chloride 108 H (98-107) mEq/L Carbon Dioxide 29 (21-32) mEq/L Anion Gap 9.1 (5-15) BUN 16 (7-18) mg/dL Creatinine 1.0 (0.7-1.3) mg/dL Est Cr Clr Drug Dosing 74.33 mL/min Estimated GFR (MDRD) > 60 (>60) mL/min BUN/Creatinine Ratio 16.0 (14-18) Glucose 90 (83-115) mg/dL Calcium 8.5 (8.5-10.1) mg/dL Magnesium (1.8-2.4) mg/dl C-Reactive Protein 3.2 H* (<1.0) mg/dL Med Orders - Current: Current Medications Acetaminophen (Tylenol) 650 mg RECTAL Q4H PRN PRN Reason: Pain (mild 1-3) Last Admin: 10/12/16 18:27 Dose: 650 mg Acetaminophen (Tylenol) 650 mg PO Q4H PRN PRN Reason: Pain (mild 1-3) Last Admin: 10/16/16 18:35 Dose: 650 mg Albuterol/Ipratropium (Duoneb 3.0-0.5 Mg/3 Ml) 3 ml NEB Q4H PRN PRN Reason: Shortness Of Breath/wheezing Bisacodyl (Dulcolax) 10 mg PO ASDIRECTED PRN PRN Reason: Constipation Last Admin: 10/13/16 22:08 Dose: 10 mg Bisacodyl (Dulcolax) 10 mg RECTAL DAILY PRN PRN Reason: Constipation Dexamethasone (Dexamethasone) 4 mg PO TID [facility] Last Admin: 10/17/16 08:42 Dose: 4 mg Diphenhydr/Magaldrate/Simeth/Lidoca (First-Mouthwash Blm Susp) 30 ml PO ASDIRECTED [facility] Enoxaparin Sodium (Lovenox) 40 mg SUBCUT DAILY [facility] Last Admin: 10/17/16 08:42 Dose: 40 mg Famotidine (Pepcid) 20 mg PO BID [facility] Last Admin: 10/17/16 08:42 Dose: 20 mg Fentanyl (Duragesic) 25 mcg TRDERM Q72H [facility] Hydralazine HCl (Apresoline) 20 mg IVPUSH Q4H PRN PRN Reason: Hypertension Promethazine HCl 12.5 mg/ (Sodium Chloride) 50.5 mls @ 100 mls/hr IV Q6H PRN PRN Reason: Nausea/Vomiting Meropenem 500 mg/ Sodium (Chloride) 100 mls @ 200 mls/hr IV Q6H [facility] Last Admin: 10/17/16 11:48 Dose: 200 mls/hr Lorazepam (Ativan) 1 mg IV Q6H PRN PRN Reason: Anxiety Last Admin: 10/14/16 22:18 Dose: 1 mg Metoprolol Tartrate (Lopressor) 5 mg IVPUSH Q4H PRN PRN Reason: Tachycardia Miscellaneous Information (Remove Patch) 0 ea TRDERM Q72H [facility] Morphine Sulfate (Morphine) 1 mg IVPUSH Q4H PRN PRN Reason: Pain Last Admin: 10/16/16 20:15 Dose: 1 mg Multivitamins (Thera) 1 each PO DAILY [facility] Last Admin: 10/17/16 08:42 Dose: 1 each Non-Formulary Medication (Na Phos,M-B/Na Phos,Di-Ba) 1 applic RECTAL DAILY PRN PRN Reason: Constipation Ondansetron HCl (Zofran) 4 mg IV Q6H PRN PRN Reason: Nausea/Vomiting Polyethylene Glycol (Miralax) 17 gm PO BID PRN PRN Reason: Constipation Senna (Senna) 8.6 mg PO DAILY PRN PRN Reason: Constipation Last Admin: 10/13/16 22:08 Dose: 8.6 mg Sodium Chloride (Saline Flush) 10 ml FLUSH ASDIRECTED PRN PRN Reason: Keep Vein Open Last Admin: 10/12/16 11:34 Dose: 10 ml Discontinued Medications Ampicillin Sodium (Ampicillin) Confirm Administered Dose 2 gm .ROUTE .STK-MED ONE Stop: 10/12/16 20:37 Last Admin: 10/12/16 21:41 Dose: Not Given Ampicillin Sodium (Ampicillin) Confirm Administered Dose 4 gm .ROUTE .STK-MED ONE Stop: 10/13/16 02:42 Last Admin: 10/13/16 03:01 Dose: Not Given Dexamethasone (Dexamethasone) 34 mg IV Q12HR [facility] Stop: 10/14/16 21:01 Dexamethasone (Dexamethasone) 34 mg IV ONETIME ONE Stop: 10/12/16 18:01 Dexamethasone (Dexamethasone) 34 mg IV ONETIME ONE Stop: 10/12/16 18:01 Last Admin: 10/12/16 21:41 Dose: Not Given Dexamethasone (Dexamethasone) 34 mg IV ONETIME ONE Stop: 10/12/16 20:46 Last Admin: 10/12/16 21:48 Dose: Not Given Enoxaparin Sodium (Lovenox) 30 mg SUBCUT DAILY [facility] Last Admin: 10/15/16 08:01 Dose: 30 mg Famotidine (Pepcid) 20 mg IVPUSH BID [facility] Last Admin: 10/15/16 21:03 Dose: 20 mg Fentanyl (Sublimaze) 25 mcg IVPUSH ONETIME ONE Stop: 10/12/16 11:11 Last Admin: 10/12/16 11:34 Dose: 25 mcg Fentanyl (Sublimaze) 25 mcg IVPUSH ONETIME ONE Stop: 10/12/16 15:03 Last Admin: 10/12/16 15:28 Dose: 25 mcg Fentanyl (Duragesic) 12 mcg TRDERM Q72H [facility] Last Admin: 10/15/16 18:33 Dose: 12 mcg Gadobenate Dimeglumine (Multihance) 20 ml IVPUSH ONETIME ONE Stop: 10/16/16 13:27 Last Admin: 10/16/16 13:56 Dose: 20 ml Potassium Chloride 10 meq/ (Premix) 100 mls @ 100 mls/hr IV ASDIRECTED [facility] Last Admin: 10/12/16 14:18 Dose: 100 mls/hr Sodium Chloride (Normal Saline) 1,000 mls @ 150 mls/hr IV ONETIME ONE Stop: 10/12/16 19:47 Last Admin: 10/12/16 13:37 Dose: 150 mls/hr Ceftriaxone Sodium 1 gm/ (Sodium Chloride) 100 mls @ 200 mls/hr IV ONETIME ONE Stop: 10/12/16 13:42 Last Admin: 10/12/16 13:40 Dose: 200 mls/hr Ampicillin Sodium 2 gm/ Sodium (Chloride) 100 mls @ 200 mls/hr IV Q4H [facility] Last Admin: 10/12/16 22:41 Dose: Not Given Vancomycin HCl 1 gm/Vancomycin HCl 500 mg/ Sodium Chloride 500 mls @ 125 mls/ hr IV Q12H [facility] Last Admin: 10/12/16 22:41 Dose: Not Given Ceftriaxone Sodium 2 gm/ (Sodium Chloride) 100 mls @ 200 mls/hr IV Q12H [facility] Metronidazole 500 mg/ Premix 100 mls @ 100 mls/hr IV Q8H [facility] Last Admin: 10/15/16 18:31 Dose: 100 mls/hr Sodium Chloride (Normal Saline) Confirm Administered Dose 100 mls @ as directed .ROUTE .STK-MED ONE Stop: 10/12/16 20:46 Last Admin: 10/12/16 21:32 Dose: Not Given Dexamethasone 34 mg/ Sodium (Chloride) 58.5 mls @ 117 mls/hr IV Q12H [facility] Stop: 10/14/16 21:29 Last Admin: 10/13/16 09:32 Dose: Not Given Sodium Chloride (Normal Saline) 1,000 mls @ 150 mls/hr IV ASDIRECTED [facility] Sodium Chloride (Normal Saline) 1,000 mls @ 25 mls/hr IV ASDIRECTED [facility] Last Admin: 10/15/16 21:01 Dose: 25 mls/hr Ampicillin Sodium 2 gm/ Sodium (Chloride) 100 mls @ 200 mls/hr IV Q4H [facility] Ampicillin Sodium 2 gm/ Sodium (Chloride) 100 mls @ 200 mls/hr IV Q4H [facility] Last Admin: 10/13/16 06:00 Dose: 200 mls/hr Vancomycin HCl 1 gm/Vancomycin HCl 500 mg/ Sodium Chloride 500 mls @ 125 mls/ hr IV Q12H [facility] Ceftriaxone Sodium 2 gm/ (Sodium Chloride) 100 mls @ 200 mls/hr IV Q12H [facility] Last Admin: 10/12/16 23:41 Dose: 200 mls/hr Vancomycin HCl 1 gm/Vancomycin HCl 500 mg/ Sodium Chloride 500 mls @ 333.33 mls /hr IV Q12H [facility] Last Admin: 10/13/16 00:38 Dose: 333.33 mls/hr Sodium Chloride (Normal Saline) Confirm Administered Dose 200 mls @ as directed .ROUTE .STK-MED ONE Stop: 10/13/16 02:46 Last Admin: 10/13/16 03:01 Dose: Not Given Ampicillin Sodium 2 gm/ Sodium (Chloride) 100 mls @ 200 mls/hr IV Q4H [facility] Last Admin: 10/13/16 11:06 Dose: 200 mls/hr Dexamethasone 34 mg/ Sodium (Chloride) 58.5 mls @ 117 mls/hr IV Q12H [facility] Stop: 10/14/16 21:59 Last Admin: 10/14/16 20:43 Dose: 117 mls/hr Piperacillin Sod/Tazobactam (Sod 4.5 gm/ Sodium Chloride) 100 mls @ 200 mls/hr IV ONETIME ONE Stop: 10/13/16 13:29 Last Admin: 10/13/16 13:05 Dose: 200 mls/hr Piperacillin Sod/Tazobactam (Sod 4.5 gm/ Sodium Chloride) 100 mls @ 25 mls/hr IV Q8H [facility] Last Admin: 10/15/16 14:07 Dose: 25 mls/hr Meropenem 1 gm/ Sodium (Chloride) 100 mls @ 200 mls/hr IV Q8H [facility] Last Admin: 10/16/16 05:22 Dose: 200 mls/hr Iopamidol (Isovue-300 (61%)) 100 ml IVPUSH ONETIME ONE Stop: 10/16/16 12:41 Last Admin: 10/16/16 14:05 Dose: 100 ml Magnesium Sulfate (Pharmacy To Dose - Magnesium Replacement) 1 dose .XX ASDIRECTED [facility] Meropenem (Merrem) Confirm Administered Dose 500 mg .ROUTE .STK-MED ONE Stop: 10/16/16 11:42 Last Admin: 10/16/16 12:07 Dose: Not Given Miscellaneous Information (Remove Patch) 1 ea TRDERM Q72H [facility] Last Admin: 10/15/16 18:32 Dose: 1 ea Morphine Sulfate (Morphine) 2 mg IVPUSH Q4H PRN PRN Reason: Pain Stop: 10/15/16 17:19 Morphine Sulfate (Morphine) Confirm Administered Dose 2 mg .ROUTE .STK-MED ONE Stop: 10/16/16 15:49 Last Admin: 10/16/16 15:56 Dose: Not Given Potassium Chloride (Pharmacy To Dose - Potassium Replacement) 1 dose .XX ASDIRECTED [facility] Sodium Chloride (Saline Flush) 10 ml FLUSH ONETIME PRN PRN Reason: IV FLUSH Stop: 10/16/16 16:00 Last Admin: 10/16/16 14:05 Dose: 10 ml Vancomycin HCl (Pharmacy To Dose - Vancomycin) 1 dose .XX ONETIME ONE Stop: 10/12/16 17:13 - Exam Quality Assessment: DVT Prophylaxis General: Alert, Oriented, Cooperative, No Acute Distress HEENT: Other (rt eye with lids swollen shut, minimal proptosis, erythema has resolved, mild residual rt sided facial swelling about cheek and mandible area. No pain to palpation. ) Neck: Supple (Per exam yesterday of oropharynx: what was thought to be ? 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 Code(s): 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.9 - MALIGNANT NEOPLASM OF MENINGES, UNSPECIFIED Status: Chronic Priority: High Current Visit: Yes (2) Cellulitis SNOMED Code(s): 891783967 Code(s): L03.90 - CELLULITIS, UNSPECIFIED Status: Acute Priority: High Current Visit: Yes Qualifiers: Site of cellulitis: face Qualified Code(s): L03.211 - Cellulitis of face (3) Parotid discomfort SNOMED Code(s): 44136031 Code(s): K11.9 - DISEASE OF [place], UNSPECIFIED Status: Acute Priority: High Current Visit: Yes (4) Constipation SNOMED Code(s): 16438363 Code(s): K59.00 - CONSTIPATION, UNSPECIFIED Status: Chronic Priority: Medium Current Visit: Yes (5) Encephalitis SNOMED Code(s): 84859713 Code(s): G04.90 - ENCEPHALITIS AND ENCEPHALOMYELITIS, UNSPECIFIED Status: Resolved Priority: High Current Visit: Yes (6) Sepsis SNOMED Code(s): 36044060 Code(s): A41.9 - SEPSIS, UNSPECIFIED ORGANISM Status: Resolved Priority: High Current Visit: Yes Qualifiers: Sepsis type: sepsis due to unspecified organism Qualified Code(s): A41.9 - Sepsis, unspecified organism (7) Fever SNOMED Code(s): 708691669 Code(s): R50.9 - FEVER, UNSPECIFIED Status: Resolved Priority: High Current Visit: Yes Qualifiers: Fever type: unspecified Qualified Code(s): R50.9 - Fever, unspecified - Problem List Review Problem List Initiated/Reviewed/Updated: Yes - My Orders Last 24 Hours: My Active Orders 10/16/16 13:15 Diphenhyd/Lidocaine/MagAl/Fahad [First-Mouthwash BLM Susp] 30 ml PO ASDIRECTED 10/17/16 06:39 Polyethylene Glycol 3350 [MiraLAX] 17 gm PO BID PRN 10/17/16 12:45 fentaNYL [Duragesic] 25 mcg TRDERM Q72H 10/18/16 05:11 BASIC METABOLIC PANEL,BMP [CHEM] AM C-REACTIVE PROTEIN [CHEM] AM CBC WITH AUTO DIFF [HEME] AM - Plan Plan:: Assessment/Plan: Acute: End of Life Care - DNR/DNI with Comfort Measures - Has inoperable brain tumor, failed palliative radiation therapy - Antibiotic, O2, fluids, and vitals check initially per family on admission - Discussed further care/dx options with family yesterday as patient with dramatic improvements since admission; patient and family agree to lab evaluation and repeat MRI of brain done yesterday showing extensive tumor bulk to right side of facial structures and brain. - Plans for DC to [facility] this week. 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 Has received recent palliative radiation treatment with Dr. Kelley in [facility] - Patient agreeable to repeat MRI of brain yesterday follow status of tumor with recent transition of events/illness -Repeat imaging yesterday shows progression of tumor to include majority of right sided facial structures, sinus cavities, mandible--see radiology reports for details -Reviewed images at length with patient and family today; reviewing extensive tumor bulk to right side of brain and facial structures. -Follow up with Dr. Kelley in [place] upon discharge on of this week; appt is scheduled for 9:15am- will ensure images are pushed for his review. Rhinosinusitis and Right Parotitis--drainage continues, swelling is improved- drainage is now clear - [place] nasal fluids-->minimal, culture with klebsiella and enterobacter- sensitive to meropenem - Cannot r/o CSF leak: frontal sinus--MRI ordered as noted above -MRI confirms erosion of sinus cavities, nasal passages/septum, into mandible and oropharynx--extensive bulky tumor encompassing/eroding most of right side of facial structures and frontal aspect of brain Resolved: Sepsis-- resolved- is hemodynamically stable, afebrile now - 2/2 Below - Limited treatment per family's request- abx on board- Merrem at this time Meningo-Encephalitis/Acute Encephalopathy-->resolved - Likely 2/2 toxic/metabolic/infectious process---->resolved with treatment - Treat underlying cause as above Leukocytosis - WBC is 16.25 and CRP 16.1-->15K-->12K - 2/2 Above and steroid use Hypokalemia- Resolved - K 2.9 - Likely 2/2 poor intake Dehydration- Resolved - 2/2 poor intake - has difficulty swallowing- BUSINESS JOB TITLES consult---diet advanced to regular with thin liquids now Chronic: HTN--stable Constipation- Stable BPH- Stable Anxiety- stable with worsening of prognosis Plan: Continue Med-Surg with Comfort Measures BUSINESS J[employer] TITLES recommendations- regular diet, thin liquids SW/CM for d/c planning Code status: DNR/DNI Comfort Measures Disposition suggest SNF LOS>96 hours for treatment, continued abx pending receipt of cultures, placement. <Calli Alberto - Last Filed: 10/17/16 20:06> - Patient Data Vitals - Most Recent: Last Vital Signs Temp 36.3 C 10/17/16 15:24 Pulse 55 L 10/17/16 15:24 Resp 18 10/17/16 15:24 BP 148/81 H 10/17/16 15:24 Pulse Ox 95 10/17/16 15:24 I&O - Last 24 Hours: Intake & Output 10/17/16 10/17/16 10/17/16 06:59 14:59 22:59 Intake Total 1150 410 640 Output Total 1400 600 Balance -250 410 40 Lab Results Last 24 Hours: Laboratory Results - last 24 hr 10/17/16 10/17/16 Range/Units 07:05 07:05 WBC 12.74 H (4.23-9.07) K/mm3 RBC 4.33 L (4.63-6.08) M/mm3 Hgb 13.3 L (13.7-17.5) gm/L Hct 40.2 (40.1-51.0) % MCV 92.8 H (79.0-92.2) fl MCH 30.7 (25.7-32.2) pg MCHC 33.1 (32.2-35.5) g/dl RDW Std Deviation 45.7 H (35.1-43.9) fL Plt Count 270 (163-337) K/mm3 MPV 9.6 (9.4-12.3) fl Neut % (Auto) 85.6 H (34.0-67.9) % Lymph % (Auto) 5.8 L (21.8-53.1) % Swain % (Auto) 8.0 (5.3-12.2) % Eos % (Auto) 0 L (0.8-7.0) Baso % (Auto) 0.0 L (0.1-1.2) % Neut # (Auto) 10.90 H (1.78-5.38) K/mm3 Lymph # (Auto) 0.74 L (1.32-3.57) K/mm3 Swain # (Auto) 1.02 H (0.30-0.82) K/mm3 Eos # (Auto) 0.00 L (0.04-0.54) K/mm3 Baso # (Auto) 0.00 L (0.01-0.08) K/mm3 Manual Slide Review Abnormal smear Sodium 142 (136-145) mEq/L Potassium 4.1 (3.5-5.1) mEq/L Chloride 108 H (98-107) mEq/L Carbon Dioxide 29 (21-32) mEq/L Anion Gap 9.1 (5-15) BUN 16 (7-18) mg/dL Creatinine 1.0 (0.7-1.3) mg/dL Est Cr Clr Drug Dosing 74.33 mL/min Estimated GFR (MDRD) > 60 (>60) mL/min BUN/Creatinine Ratio 16.0 (14-18) Glucose 90 (83-115) mg/dL Calcium 8.5 (8.5-10.1) mg/dL C-Reactive Protein 3.2 H* (<1.0) mg/dL Med Orders - Current: Current Medications Acetaminophen (Tylenol) 650 mg RECTAL Q4H PRN PRN Reason: Pain (mild 1-3) Last Admin: 10/12/16 18:27 Dose: 650 mg Acetaminophen (Tylenol) 650 mg PO Q4H PRN PRN Reason: Pain (mild 1-3) Last Admin: 10/16/16 18:35 Dose: 650 mg Albuterol/Ipratropium (Duoneb 3.0-0.5 Mg/3 Ml) 3 ml NEB Q4H PRN PRN Reason: Shortness Of Breath/wheezing Bisacodyl (Dulcolax) 10 mg PO ASDIRECTED PRN PRN Reason: Constipation Last Admin: 10/13/16 22:08 Dose: 10 mg Bisacodyl (Dulcolax) 10 mg RECTAL DAILY PRN PRN Reason: Constipation Dexamethasone (Dexamethasone) 4 mg PO TID [facility] Last Admin: 10/17/16 15:37 Dose: 4 mg Diphenhydr/Magaldrate/Simeth/Lidoca (First-Mouthwash Blm Susp) 30 ml PO ASDIRECTED [facility] Enoxaparin Sodium (Lovenox) 40 mg SUBCUT DAILY [facility] Last Admin: 10/17/16 08:42 Dose: 40 mg Famotidine (Pepcid) 20 mg PO BID [facility] Last Admin: 10/17/16 08:42 Dose: 20 mg Fentanyl (Duragesic) 25 mcg TRDERM Q72H [facility] Last Admin: 10/17/16 12:56 Dose: 25 mcg Hydralazine HCl (Apresoline) 20 mg IVPUSH Q4H PRN PRN Reason: Hypertension Meropenem 500 mg/ Sodium (Chloride) 100 mls @ 200 mls/hr IV Q6H [facility] Last Admin: 10/17/16 17:30 Dose: 200 mls/hr Metoprolol Tartrate (Lopressor) 5 mg IVPUSH Q4H PRN PRN Reason: Tachycardia Miscellaneous Information (Remove Patch) 0 ea TRDERM Q72H [facility] Morphine Sulfate (Morphine) 1 mg IVPUSH Q4H PRN PRN Reason: Pain Last Admin: 10/17/16 12:46 Dose: 1 mg Multivitamins (Thera) 1 each PO DAILY [facility] Last Admin: 10/17/16 08:42 Dose: 1 each Non-Formulary Medication (Na Phos,M-B/Na Phos,Di-Ba) 1 applic RECTAL DAILY PRN PRN Reason: Constipation Ondansetron HCl (Zofran) 4 mg IV Q6H PRN PRN Reason: Nausea/Vomiting Polyethylene Glycol (Miralax) 17 gm PO BID PRN PRN Reason: Constipation Senna (Senna) 8.6 mg PO DAILY PRN PRN Reason: Constipation Last Admin: 10/13/16 22:08 Dose: 8.6 mg Sodium Chloride (Saline Flush) 10 ml FLUSH ASDIRECTED PRN PRN Reason: Keep Vein Open Last Admin: 10/12/16 11:34 Dose: 10 ml Discontinued Medications Ampicillin Sodium (Ampicillin) Confirm Administered Dose 2 gm .ROUTE .STK-MED ONE Stop: 10/12/16 20:37 Last Admin: 10/12/16 21:41 Dose: Not Given Ampicillin Sodium (Ampicillin) Confirm Administered Dose 4 gm .ROUTE .STK-MED ONE Stop: 10/13/16 02:42 Last Admin: 10/13/16 03:01 Dose: Not Given Dexamethasone (Dexamethasone) 34 mg IV Q12HR [facility] Stop: 10/14/16 21:01 Dexamethasone (Dexamethasone) 34 mg IV ONETIME ONE Stop: 10/12/16 18:01 Dexamethasone (Dexamethasone) 34 mg IV ONETIME ONE Stop: 10/12/16 18:01 Last Admin: 10/12/16 21:41 Dose: Not Given Dexamethasone (Dexamethasone) 34 mg IV ONETIME ONE Stop: 10/12/16 20:46 Last Admin: 10/12/16 21:48 Dose: Not Given Enoxaparin Sodium (Lovenox) 30 mg SUBCUT DAILY [facility] Last Admin: 10/15/16 08:01 Dose: 30 mg Famotidine (Pepcid) 20 mg IVPUSH BID [facility] Last Admin: 10/15/16 21:03 Dose: 20 mg Fentanyl (Sublimaze) 25 mcg IVPUSH ONETIME ONE Stop: 10/12/16 11:11 Last Admin: 10/12/16 11:34 Dose: 25 mcg Fentanyl (Sublimaze) 25 mcg IVPUSH ONETIME ONE Stop: 10/12/16 15:03 Last Admin: 10/12/16 15:28 Dose: 25 mcg Fentanyl (Duragesic) 12 mcg TRDERM Q72H [facility] Last Admin: 10/15/16 18:33 Dose: 12 mcg Gadobenate Dimeglumine (Multihance) 20 ml IVPUSH ONETIME ONE Stop: 10/16/16 13:27 Last Admin: 10/16/16 13:56 Dose: 20 ml Potassium Chloride 10 meq/ (Premix) 100 mls @ 100 mls/hr IV ASDIRECTED [facility] Last Admin: 10/12/16 14:18 Dose: 100 mls/hr Sodium Chloride (Normal Saline) 1,000 mls @ 150 mls/hr IV ONETIME ONE Stop: 10/12/16 19:47 Last Admin: 10/12/16 13:37 Dose: 150 mls/hr Ceftriaxone Sodium 1 gm/ (Sodium Chloride) 100 mls @ 200 mls/hr IV ONETIME ONE Stop: 10/12/16 13:42 Last Admin: 10/12/16 13:40 Dose: 200 mls/hr Ampicillin Sodium 2 gm/ Sodium (Chloride) 100 mls @ 200 mls/hr IV Q4H [facility] Last Admin: 10/12/16 22:41 Dose: Not Given Vancomycin HCl 1 gm/Vancomycin HCl 500 mg/ Sodium Chloride 500 mls @ 125 mls/ hr IV Q12H [facility] Last Admin: 10/12/16 22:41 Dose: Not Given Ceftriaxone Sodium 2 gm/ (Sodium Chloride) 100 mls @ 200 mls/hr IV Q12H [facility] Promethazine HCl 12.5 mg/ (Sodium Chloride) 50.5 mls @ 100 mls/hr IV Q6H PRN PRN Reason: Nausea/Vomiting Metronidazole 500 mg/ Premix 100 mls @ 100 mls/hr IV Q8H [facility] Last Admin: 10/15/16 18:31 Dose: 100 mls/hr Sodium Chloride (Normal Saline) Confirm Administered Dose 100 mls @ as directed .ROUTE .STK-MED ONE Stop: 10/12/16 20:46 Last Admin: 10/12/16 21:32 Dose: Not Given Dexamethasone 34 mg/ Sodium (Chloride) 58.5 mls @ 117 mls/hr IV Q12H [facility] Stop: 10/14/16 21:29 Last Admin: 10/13/16 09:32 Dose: Not Given Sodium Chloride (Normal Saline) 1,000 mls @ 150 mls/hr IV ASDIRECTED [facility] Sodium Chloride (Normal Saline) 1,000 mls @ 25 mls/hr IV ASDIRECTED [facility] Last Admin: 10/15/16 21:01 Dose: 25 mls/hr Ampicillin Sodium 2 gm/ Sodium (Chloride) 100 mls @ 200 mls/hr IV Q4H [facility] Ampicillin Sodium 2 gm/ Sodium (Chloride) 100 mls @ 200 mls/hr IV Q4H [facility] Last Admin: 10/13/16 06:00 Dose: 200 mls/hr Vancomycin HCl 1 gm/Vancomycin HCl 500 mg/ Sodium Chloride 500 mls @ 125 mls/ hr IV Q12H [facility] Ceftriaxone Sodium 2 gm/ (Sodium Chloride) 100 mls @ 200 mls/hr IV Q12H [facility] Last Admin: 10/12/16 23:41 Dose: 200 mls/hr Vancomycin HCl 1 gm/Vancomycin HCl 500 mg/ Sodium Chloride 500 mls @ 333.33 mls /hr IV Q12H [facility] Last Admin: 10/13/16 00:38 Dose: 333.33 mls/hr Sodium Chloride (Normal Saline) Confirm Administered Dose 200 mls @ as directed .ROUTE .STK-MED ONE Stop: 10/13/16 02:46 Last Admin: 10/13/16 03:01 Dose: Not Given Ampicillin Sodium 2 gm/ Sodium (Chloride) 100 mls @ 200 mls/hr IV Q4H [facility] Last Admin: 10/13/16 11:06 Dose: 200 mls/hr Dexamethasone 34 mg/ Sodium (Chloride) 58.5 mls @ 117 mls/hr IV Q12H [facility] Stop: 10/14/16 21:59 Last Admin: 10/14/16 20:43 Dose: 117 mls/hr Piperacillin Sod/Tazobactam (Sod 4.5 gm/ Sodium Chloride) 100 mls @ 200 mls/hr IV ONETIME ONE Stop: 10/13/16 13:29 Last Admin: 10/13/16 13:05 Dose: 200 mls/hr Piperacillin Sod/Tazobactam (Sod 4.5 gm/ Sodium Chloride) 100 mls @ 25 mls/hr IV Q8H [facility] Last Admin: 10/15/16 14:07 Dose: 25 mls/hr Meropenem 1 gm/ Sodium (Chloride) 100 mls @ 200 mls/hr IV Q8H [facility] Last Admin: 10/16/16 05:22 Dose: 200 mls/hr Iopamidol (Isovue-300 (61%)) 100 ml IVPUSH ONETIME ONE Stop: 10/16/16 12:41 Last Admin: 10/16/16 14:05 Dose: 100 ml Lorazepam (Ativan) 1 mg IV Q6H PRN PRN Reason: Anxiety Last Admin: 10/14/16 22:18 Dose: 1 mg Magnesium Sulfate (Pharmacy To Dose - Magnesium Replacement) 1 dose .XX ASDIRECTED [facility] Meropenem (Merrem) Confirm Administered Dose 500 mg .ROUTE .STK-MED ONE Stop: 10/16/16 11:42 Last Admin: 10/16/16 12:07 Dose: Not Given Miscellaneous Information (Remove Patch) 1 ea TRDERM Q72H [facility] Last Admin: 10/15/16 18:32 Dose: 1 ea Morphine Sulfate (Morphine) 2 mg IVPUSH Q4H PRN PRN Reason: Pain Stop: 10/15/16 17:19 Morphine Sulfate (Morphine) Confirm Administered Dose 2 mg .ROUTE .STK-MED ONE Stop: 10/16/16 15:49 Last Admin: 10/16/16 15:56 Dose: Not Given Potassium Chloride (Pharmacy To Dose - Potassium Replacement) 1 dose .XX ASDIRECTED [facility] Sodium Chloride (Saline Flush) 10 ml FLUSH ONETIME PRN PRN Reason: IV FLUSH Stop: 10/16/16 16:00 Last Admin: 10/16/16 14:05 Dose: 10 ml Vancomycin HCl (Pharmacy To Dose - Vancomycin) 1 dose .XX ONETIME ONE Stop: 10/12/16 17:13 - Problem List & Annotations (1) Fever SNOMED Code(s): 758921138 Code(s): R50.9 - FEVER, UNSPECIFIED Status: Resolved Priority: High Current Visit: Yes Qualifiers: Fever type: unspecified Qualified Code(s): R50.9 - Fever, unspecified (2) Sepsis SNOMED Code(s): 75944591 Code(s): A41.9 - SEPSIS, UNSPECIFIED ORGANISM Status: Resolved Priority: High Current Visit: Yes Qualifiers: Sepsis type: sepsis due to unspecified organism Qualified Code(s): A41.9 - Sepsis, unspecified organism (3) Cellulitis SNOMED Code(s): 750844911 Code(s): L03.90 - CELLULITIS, UNSPECIFIED Status: Acute Priority: High Current Visit: Yes Qualifiers: Site of cellulitis: face Qualified Code(s): L03.211 - Cellulitis of face (4) Parotid discomfort SNOMED Code(s): 14015819 Code(s): K11.9 - DISEASE OF [place], UNSPECIFIED Status: Acute Priority: High Current Visit: Yes (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
[2016-10-18] MEDS: Meropenem 500 MG in Sodium Chloride 0.9% 100 ML IV SCH ×3 (05:23→17:10)
--- NOTE | 2016-10-18 06:32 | PCM.PN ---
<Sheri Daniels - Last Filed: 10/18/16 11:21> - General Info Date of Service: 10/18/16 Admission Dx/Problem (Free Text): Doing well, slept well. Up and ambulatory. Good appetite. Pain better controlled overnight with increased fentanyl dose. No concerns this morning. Plan for DC to [facility] tomorrow. Functional Status: Reports: Pain Controlled, Tolerating Diet, Ambulating, Urinating. Denies: New Symptoms - Review of Systems General: Reports: No Symptoms HEENT: Reports: Other (swelling to rt side of face, rt eye swollen shut and blind in right eye; swelling improved) Pulmonary: Reports: No Symptoms Cardiovascular: Reports: No Symptoms Gastrointestinal: Reports: No Symptoms Genitourinary: Reports: No Symptoms Neurological: Reports: No Symptoms, Numbness (rt side of face), Paresthesia (rt side of face). Denies: Confusion, Headache Psychiatric: Reports: No Symptoms - Patient Data Vitals - Most Recent: Last Vital Signs Temp 97.9 F 10/17/16 20:14 Pulse 59 L 10/17/16 20:14 Resp 12 10/17/16 20:14 BP 134/62 10/17/16 20:14 Pulse Ox 94 L 10/17/16 20:14 Weight - Most Recent: 92.278 kg I&O - Last 24 Hours: Intake & Output 10/17/16 10/17/16 10/18/16 14:59 22:59 06:59 Intake Total 989 332 4793 Output Total 600 950 Balance 410 40 410 Lab Results Last 24 Hours: Laboratory Results - last 24 hr 10/17/16 10/17/16 Range/Units 07:05 07:05 WBC 12.74 H (4.23-9.07) K/mm3 RBC 4.33 L (4.63-6.08) M/mm3 Hgb 13.3 L (13.7-17.5) gm/L Hct 40.2 (40.1-51.0) % MCV 92.8 H (79.0-92.2) fl MCH 30.7 (25.7-32.2) pg MCHC 33.1 (32.2-35.5) g/dl RDW Std Deviation 45.7 H (35.1-43.9) fL Plt Count 270 (163-337) K/mm3 MPV 9.6 (9.4-12.3) fl Neut % (Auto) 85.6 H (34.0-67.9) % Lymph % (Auto) 5.8 L (21.8-53.1) % [place] % (Auto) 8.0 (5.3-12.2) % Eos % (Auto) 0 L (0.8-7.0) Baso % (Auto) 0.0 L (0.1-1.2) % Neut # (Auto) 10.90 H (1.78-5.38) K/mm3 Lymph # (Auto) 0.74 L (1.32-3.57) K/mm3 [place] # (Auto) 1.02 H (0.30-0.82) K/mm3 Eos # (Auto) 0.00 L (0.04-0.54) K/mm3 Baso # (Auto) 0.00 L (0.01-0.08) K/mm3 Manual Slide Review Abnormal smear Sodium 142 (136-145) mEq/L Potassium 4.1 (3.5-5.1) mEq/L Chloride 108 H (98-107) mEq/L Carbon Dioxide 29 (21-32) mEq/L Anion Gap 9.1 (5-15) BUN 16 (7-18) mg/dL Creatinine 1.0 (0.7-1.3) mg/dL Est Cr Clr Drug Dosing 74.33 mL/min Estimated GFR (MDRD) > 60 (>60) mL/min BUN/Creatinine Ratio 16.0 (14-18) Glucose 90 (83-115) mg/dL Calcium 8.5 (8.5-10.1) mg/dL C-Reactive Protein 3.2 H* (<1.0) mg/dL Med Orders - Current: Current Medications Acetaminophen (Tylenol) 650 mg RECTAL Q4H PRN PRN Reason: Pain (mild 1-3) Last Admin: 10/12/16 18:27 Dose: 650 mg Acetaminophen (Tylenol) 650 mg PO Q4H PRN PRN Reason: Pain (mild 1-3) Last Admin: 10/16/16 18:35 Dose: 650 mg Albuterol/Ipratropium (Duoneb 3.0-0.5 Mg/3 Ml) 3 ml NEB Q4H PRN PRN Reason: Shortness Of Breath/wheezing Bisacodyl (Dulcolax) 10 mg PO ASDIRECTED PRN PRN Reason: Constipation Last Admin: 10/13/16 22:08 Dose: 10 mg Bisacodyl (Dulcolax) 10 mg RECTAL DAILY PRN PRN Reason: Constipation Dexamethasone (Dexamethasone) 4 mg PO TID [facility] Last Admin: 10/17/16 20:30 Dose: 4 mg Diphenhydr/Magaldrate/Simeth/Lidoca (First-Mouthwash Blm Susp) 30 ml PO ASDIRECTED [facility] Enoxaparin Sodium (Lovenox) 40 mg SUBCUT DAILY [facility] Last Admin: 10/17/16 08:42 Dose: 40 mg Famotidine (Pepcid) 20 mg PO BID [facility] Last Admin: 10/17/16 20:30 Dose: 20 mg Fentanyl (Duragesic) 25 mcg TRDERM Q72H [facility] Last Admin: 10/17/16 12:56 Dose: 25 mcg Hydralazine HCl (Apresoline) 20 mg IVPUSH Q4H PRN PRN Reason: Hypertension Meropenem 500 mg/ Sodium (Chloride) 100 mls @ 200 mls/hr IV Q6H [facility] Last Admin: 10/18/16 05:23 Dose: 200 mls/hr Metoprolol Tartrate (Lopressor) 5 mg IVPUSH Q4H PRN PRN Reason: Tachycardia Miscellaneous Information (Remove Patch) 0 ea TRDERM Q72H [facility] Morphine Sulfate (Morphine) 1 mg IVPUSH Q4H PRN PRN Reason: Pain Last Admin: 10/17/16 20:30 Dose: 1 mg Multivitamins (Thera) 1 each PO DAILY [facility] Last Admin: 10/17/16 08:42 Dose: 1 each Non-Formulary Medication (Na Phos,M-B/Na Phos,Di-Ba) 1 applic RECTAL DAILY PRN PRN Reason: Constipation Ondansetron HCl (Zofran) 4 mg IV Q6H PRN PRN Reason: Nausea/Vomiting Polyethylene Glycol (Miralax) 17 gm PO BID PRN PRN Reason: Constipation Senna (Senna) 8.6 mg PO DAILY PRN PRN Reason: Constipation Last Admin: 10/13/16 22:08 Dose: 8.6 mg Sodium Chloride (Saline Flush) 10 ml FLUSH ASDIRECTED PRN PRN Reason: Keep Vein Open Last Admin: 10/12/16 11:34 Dose: 10 ml Discontinued Medications Ampicillin Sodium (Ampicillin) Confirm Administered Dose 2 gm .ROUTE .STK-MED ONE Stop: 10/12/16 20:37 Last Admin: 10/12/16 21:41 Dose: Not Given Ampicillin Sodium (Ampicillin) Confirm Administered Dose 4 gm .ROUTE .STK-MED ONE Stop: 10/13/16 02:42 Last Admin: 10/13/16 03:01 Dose: Not Given Dexamethasone (Dexamethasone) 34 mg IV Q12HR [facility] Stop: 10/14/16 21:01 Dexamethasone (Dexamethasone) 34 mg IV ONETIME ONE Stop: 10/12/16 18:01 Dexamethasone (Dexamethasone) 34 mg IV ONETIME ONE Stop: 10/12/16 18:01 Last Admin: 10/12/16 21:41 Dose: Not Given Dexamethasone (Dexamethasone) 34 mg IV ONETIME ONE Stop: 10/12/16 20:46 Last Admin: 10/12/16 21:48 Dose: Not Given Enoxaparin Sodium (Lovenox) 30 mg SUBCUT DAILY [facility] Last Admin: 10/15/16 08:01 Dose: 30 mg Famotidine (Pepcid) 20 mg IVPUSH BID [facility] Last Admin: 10/15/16 21:03 Dose: 20 mg Fentanyl (Sublimaze) 25 mcg IVPUSH ONETIME ONE Stop: 10/12/16 11:11 Last Admin: 10/12/16 11:34 Dose: 25 mcg Fentanyl (Sublimaze) 25 mcg IVPUSH ONETIME ONE Stop: 10/12/16 15:03 Last Admin: 10/12/16 15:28 Dose: 25 mcg Fentanyl (Duragesic) 12 mcg TRDERM Q72H [facility] Last Admin: 10/15/16 18:33 Dose: 12 mcg Gadobenate Dimeglumine (Multihance) 20 ml IVPUSH ONETIME ONE Stop: 10/16/16 13:27 Last Admin: 10/16/16 13:56 Dose: 20 ml Potassium Chloride 10 meq/ (Premix) 100 mls @ 100 mls/hr IV ASDIRECTED [facility] Last Admin: 10/12/16 14:18 Dose: 100 mls/hr Sodium Chloride (Normal Saline) 1,000 mls @ 150 mls/hr IV ONETIME ONE Stop: 10/12/16 19:47 Last Admin: 10/12/16 13:37 Dose: 150 mls/hr Ceftriaxone Sodium 1 gm/ (Sodium Chloride) 100 mls @ 200 mls/hr IV ONETIME ONE Stop: 10/12/16 13:42 Last Admin: 10/12/16 13:40 Dose: 200 mls/hr Ampicillin Sodium 2 gm/ Sodium (Chloride) 100 mls @ 200 mls/hr IV Q4H [facility] Last Admin: 10/12/16 22:41 Dose: Not Given Vancomycin HCl 1 gm/Vancomycin HCl 500 mg/ Sodium Chloride 500 mls @ 125 mls/ hr IV Q12H [facility] Last Admin: 10/12/16 22:41 Dose: Not Given Ceftriaxone Sodium 2 gm/ (Sodium Chloride) 100 mls @ 200 mls/hr IV Q12H [facility] Promethazine HCl 12.5 mg/ (Sodium Chloride) 50.5 mls @ 100 mls/hr IV Q6H PRN PRN Reason: Nausea/Vomiting Metronidazole 500 mg/ Premix 100 mls @ 100 mls/hr IV Q8H [facility] Last Admin: 10/15/16 18:31 Dose: 100 mls/hr Sodium Chloride (Normal Saline) Confirm Administered Dose 100 mls @ as directed .ROUTE .STK-MED ONE Stop: 10/12/16 20:46 Last Admin: 10/12/16 21:32 Dose: Not Given Dexamethasone 34 mg/ Sodium (Chloride) 58.5 mls @ 117 mls/hr IV Q12H [facility] Stop: 10/14/16 21:29 Last Admin: 10/13/16 09:32 Dose: Not Given Sodium Chloride (Normal Saline) 1,000 mls @ 150 mls/hr IV ASDIRECTED [facility] Sodium Chloride (Normal Saline) 1,000 mls @ 25 mls/hr IV ASDIRECTED [facility] Last Admin: 10/15/16 21:01 Dose: 25 mls/hr Ampicillin Sodium 2 gm/ Sodium (Chloride) 100 mls @ 200 mls/hr IV Q4H [facility] Ampicillin Sodium 2 gm/ Sodium (Chloride) 100 mls @ 200 mls/hr IV Q4H [facility] Last Admin: 10/13/16 06:00 Dose: 200 mls/hr Vancomycin HCl 1 gm/Vancomycin HCl 500 mg/ Sodium Chloride 500 mls @ 125 mls/ hr IV Q12H [facility] Ceftriaxone Sodium 2 gm/ (Sodium Chloride) 100 mls @ 200 mls/hr IV Q12H [facility] Last Admin: 10/12/16 23:41 Dose: 200 mls/hr Vancomycin HCl 1 gm/Vancomycin HCl 500 mg/ Sodium Chloride 500 mls @ 333.33 mls /hr IV Q12H [facility] Last Admin: 10/13/16 00:38 Dose: 333.33 mls/hr Sodium Chloride (Normal Saline) Confirm Administered Dose 200 mls @ as directed .ROUTE .STK-MED ONE Stop: 10/13/16 02:46 Last Admin: 10/13/16 03:01 Dose: Not Given Ampicillin Sodium 2 gm/ Sodium (Chloride) 100 mls @ 200 mls/hr IV Q4H [facility] Last Admin: 10/13/16 11:06 Dose: 200 mls/hr Dexamethasone 34 mg/ Sodium (Chloride) 58.5 mls @ 117 mls/hr IV Q12H [facility] Stop: 10/14/16 21:59 Last Admin: 10/14/16 20:43 Dose: 117 mls/hr Piperacillin Sod/Tazobactam (Sod 4.5 gm/ Sodium Chloride) 100 mls @ 200 mls/hr IV ONETIME ONE Stop: 10/13/16 13:29 Last Admin: 10/13/16 13:05 Dose: 200 mls/hr Piperacillin Sod/Tazobactam (Sod 4.5 gm/ Sodium Chloride) 100 mls @ 25 mls/hr IV Q8H [facility] Last Admin: 10/15/16 14:07 Dose: 25 mls/hr Meropenem 1 gm/ Sodium (Chloride) 100 mls @ 200 mls/hr IV Q8H [facility] Last Admin: 10/16/16 05:22 Dose: 200 mls/hr Iopamidol (Isovue-300 (61%)) 100 ml IVPUSH ONETIME ONE Stop: 10/16/16 12:41 Last Admin: 10/16/16 14:05 Dose: 100 ml Lorazepam (Ativan) 1 mg IV Q6H PRN PRN Reason: Anxiety Last Admin: 10/14/16 22:18 Dose: 1 mg Magnesium Sulfate (Pharmacy To Dose - Magnesium Replacement) 1 dose .XX ASDIRECTED [facility] Meropenem (Merrem) Confirm Administered Dose 500 mg .ROUTE .STK-MED ONE Stop: 10/16/16 11:42 Last Admin: 10/16/16 12:07 Dose: Not Given Miscellaneous Information (Remove Patch) 1 ea TRDERM Q72H [facility] Last Admin: 10/15/16 18:32 Dose: 1 ea Morphine Sulfate (Morphine) 2 mg IVPUSH Q4H PRN PRN Reason: Pain Stop: 10/15/16 17:19 Morphine Sulfate (Morphine) Confirm Administered Dose 2 mg .ROUTE .STK-MED ONE Stop: 10/16/16 15:49 Last Admin: 10/16/16 15:56 Dose: Not Given Potassium Chloride (Pharmacy To Dose - Potassium Replacement) 1 dose .XX ASDIRECTED [facility] Sodium Chloride (Saline Flush) 10 ml FLUSH ONETIME PRN PRN Reason: IV FLUSH Stop: 10/16/16 16:00 Last Admin: 10/16/16 14:05 Dose: 10 ml Vancomycin HCl (Pharmacy To Dose - Vancomycin) 1 dose .XX ONETIME ONE Stop: 10/12/16 17:13 - Exam Quality Assessment: DVT Prophylaxis General: Alert, Oriented, Cooperative, No Acute Distress HEENT: Other (Right eye si with minimal proptosis, eyelid swelling and swollen shut. 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 - MALIGNANT NEOPLASM OF MENINGES, UNSPECIFIED Status: Chronic Priority: High Current Visit: Yes (2) Cellulitis SNOMED Code(s): 398794311 Code(s): L03.90 - CELLULITIS, UNSPECIFIED Status: Acute Priority: High Current Visit: Yes Qualifiers: Site of cellulitis: face Qualified Code(s): L03.211 - Cellulitis of face (3) Parotid discomfort SNOMED Code(s): 34325956 Code(s): K11.9 - DISEASE OF SALIVARY GLAND, UNSPECIFIED Status: Acute Priority: High Current Visit: Yes (4) Constipation SNOMED Code(s): 89728614 Code(s): K59.00 - CONSTIPATION, UNSPECIFIED Status: Chronic Priority: Medium Current Visit: Yes (5) Encephalitis SNOMED Code(s): 60873466 Code(s): G04.90 - ENCEPHALITIS AND ENCEPHALOMYELITIS, UNSPECIFIED Status: Resolved Priority: High Current Visit: Yes (6) Sepsis SNOMED Code(s): 84465724 Code(s): A41.9 - SEPSIS, UNSPECIFIED ORGANISM Status: Resolved Priority: High Current Visit: Yes Qualifiers: Sepsis type: sepsis due to unspecified organism Qualified Code(s): A41.9 - Sepsis, unspecified organism (7) Fever SNOMED Code(s): 825112217 Code(s): R50.9 - FEVER, UNSPECIFIED Status: Resolved Priority: High Current Visit: Yes Qualifiers: Fever type: unspecified Qualified Code(s): R50.9 - Fever, unspecified - Problem List Review Problem List Initiated/Reviewed/Updated: Yes - My Orders Last 24 Hours: My Active Orders 10/17/16 06:39 Polyethylene Glycol 3350 [MiraLAX] 17 gm PO BID PRN 10/17/16 12:45 fentaNYL [Duragesic] 25 mcg TRDERM Q72H 10/18/16 05:11 BASIC METABOLIC PANEL,BMP [CHEM] AM C-REACTIVE PROTEIN [CHEM] AM CBC WITH AUTO DIFF [HEME] AM - Plan Plan:: Assessment/Plan: Acute: End of Life Care--patient is now stable - DNR/DNI with Comfort Measures - Has inoperable brain tumor, failed palliative radiation therapy - Antibiotic, O2, fluids, and vitals check initially per family on admission ; now agreeable to following labs also - Discussed further care/dx options with family as patient with dramatic improvements since admission; patient and family agree to lab evaluation and repeat MRI of brain done showing extensive tumor bulk to right side of facial structures and brain. - Plans for DC to [facility] for [facility] this week. 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 Has received recent palliative radiation treatment with Dr. Kelley in [facility] - Patient agreeable to repeat MRI of brain follow status of tumor with recent transition of events/illness -Repeat imaging shows progression of tumor to include majority of right sided facial structures, sinus cavities, mandible--see radiology reports for details -Reviewed images at length with patient and family yesterday; reviewing extensive tumor bulk to right side of brain and facial structures. -Follow up with Dr. Kelley in [place] upon discharge on of this week; appt is scheduled for 9:15am- will ensure images are pushed for his review. Rhinosinusitis and Right Parotitis--drainage continues, swelling is improved- drainage is now clear - [place] nasal fluids upon admission-->minimal, culture with klebsiella and enterobacter- sensitive to meropenem - Cannot r/o CSF leak: frontal sinus--MRI ordered as noted above -MRI confirms erosion of sinus cavities, nasal passages/septum, into mandible and oropharynx--extensive bulky tumor encompassing/eroding most of right side of facial structures and frontal aspect of brain Resolved: Sepsis-- resolved- is hemodynamically stable, afebrile now - 2/2 Below - Limited treatment per family's request- abx on board- Merrem at this time Meningo-Encephalitis/Acute Encephalopathy-->resolved - Likely 2/2 toxic/metabolic/infectious process---->resolved with treatment - Treat underlying cause as above Leukocytosis - WBC is 16.25 and CRP 16.1-->15K-->12K - 2/2 Above and steroid use Hypokalemia- Resolved - K 2.9 - Likely 2/2 poor intake Dehydration- Resolved - 2/2 poor intake - has difficulty swallowing- SUPPLY TECHNICIAN consult---diet advanced to regular with thin liquids now Chronic: HTN--stable Constipation- Stable BPH- Stable Anxiety- stable with worsening of prognosis Plan: Continue Med-Surg with Comfort Measures SUPPLY TECHNICIAN recommendations- regular diet, thin liquids SW/CM for d/c planning Code status: DNR/DNI Comfort Measures Disposition suggest SNF LOS>96 hours for treatment, continued abx pending receipt of cultures, placement. Likely DC to SNF/[facility] tomorrow. <Calli Alberto - Last Filed: 10/18/16 12:29> - Patient Data Vitals - Most Recent: Last Vital Signs Temp 36.6 C 10/18/16 07:15 Pulse 49 L 10/18/16 07:15 Resp 14 10/18/16 07:15 BP 160/79 H 10/18/16 07:15 Pulse Ox 96 10/18/16 07:15 I&O - Last 24 Hours: Intake & Output 10/17/16 10/18/16 10/18/16 22:59 06:59 14:59 Intake Total 640 1360 210 Output Total 600 950 Balance 40 410 210 Lab Results Last 24 Hours: Laboratory Results - last 24 hr 10/18/16 10/18/16 Range/Units 06:45 06:45 WBC 12.95 H (4.23-9.07) K/mm3 RBC 4.39 L (4.63-6.08) M/mm3 Hgb 13.6 L (13.7-17.5) gm/L Hct 40.7 (40.1-51.0) % MCV 92.7 H (79.0-92.2) fl MCH 31.0 (25.7-32.2) pg MCHC 33.4 (32.2-35.5) g/dl RDW Std Deviation 45.4 H (35.1-43.9) fL Plt Count 292 (163-337) K/mm3 MPV 9.3 L (9.4-12.3) fl Neut % (Auto) 87.9 H (34.0-67.9) % Lymph % (Auto) 4.4 L (21.8-53.1) % [place] % (Auto) 5.9 (5.3-12.2) % Eos % (Auto) 0.1 L (0.8-7.0) Baso % (Auto) 0.1 (0.1-1.2) % Neut # (Auto) 11.39 H (1.78-5.38) K/mm3 Lymph # (Auto) 0.57 L (1.32-3.57) K/mm3 [place] # (Auto) 0.76 (0.30-0.82) K/mm3 Eos # (Auto) 0.01 L (0.04-0.54) K/mm3 Baso # (Auto) 0.01 (0.01-0.08) K/mm3 Manual Slide Review Abnormal smear Sodium 140 (136-145) mEq/L Potassium 4.3 (3.5-5.1) mEq/L Chloride 107 (98-107) mEq/L Carbon Dioxide 27 (21-32) mEq/L Anion Gap 10.3 (5-15) BUN 16 (7-18) mg/dL Creatinine 0.8 (0.7-1.3) mg/dL Est Cr Clr Drug Dosing 92.91 mL/min Estimated GFR (MDRD) > 60 (>60) mL/min BUN/Creatinine Ratio 20.0 H (14-18) Glucose 106 (83-115) mg/dL Calcium 8.5 (8.5-10.1) mg/dL C-Reactive Protein 2.0 H* (<1.0) mg/dL Med Orders - Current: Current Medications Acetaminophen (Tylenol) 650 mg RECTAL Q4H PRN PRN Reason: Pain (mild 1-3) Last Admin: 10/12/16 18:27 Dose: 650 mg Acetaminophen (Tylenol) 650 mg PO Q4H PRN PRN Reason: Pain (mild 1-3) Last Admin: 10/16/16 18:35 Dose: 650 mg Albuterol/Ipratropium (Duoneb 3.0-0.5 Mg/3 Ml) 3 ml NEB Q4H PRN PRN Reason: Shortness Of Breath/wheezing Bisacodyl (Dulcolax) 10 mg PO ASDIRECTED PRN PRN Reason: Constipation Last Admin: 10/13/16 22:08 Dose: 10 mg Bisacodyl (Dulcolax) 10 mg RECTAL DAILY PRN PRN Reason: Constipation Dexamethasone (Dexamethasone) 4 mg PO TID [facility] Last Admin: 10/18/16 09:56 Dose: 4 mg Diphenhydr/Magaldrate/Simeth/Lidoca (First-Mouthwash Blm Susp) 30 ml PO ASDIRECTED [facility] Enoxaparin Sodium (Lovenox) 40 mg SUBCUT DAILY [facility] Last Admin: 10/18/16 09:56 Dose: 40 mg Famotidine (Pepcid) 20 mg PO BID [facility] Last Admin: 10/18/16 09:56 Dose: 20 mg Fentanyl (Duragesic) 25 mcg TRDERM Q72H [facility] Last Admin: 10/17/16 12:56 Dose: 25 mcg Hydralazine HCl (Apresoline) 20 mg IVPUSH Q4H PRN PRN Reason: Hypertension Meropenem 500 mg/ Sodium (Chloride) 100 mls @ 200 mls/hr IV Q6H [facility] Last Admin: 10/18/16 11:48 Dose: 200 mls/hr Metoprolol Tartrate (Lopressor) 5 mg IVPUSH Q4H PRN PRN Reason: Tachycardia Miscellaneous Information (Remove Patch) 0 ea TRDERM Q72H [facility] Morphine Sulfate (Morphine) 1 mg IVPUSH Q4H PRN PRN Reason: Pain Last Admin: 10/17/16 20:30 Dose: 1 mg Multivitamins (Thera) 1 each PO DAILY [facility] Last Admin: 10/18/16 09:56 Dose: 1 each Non-Formulary Medication (Na Phos,M-B/Na Phos,Di-Ba) 1 applic RECTAL DAILY PRN PRN Reason: Constipation Ondansetron HCl (Zofran) 4 mg IV Q6H PRN PRN Reason: Nausea/Vomiting Polyethylene Glycol (Miralax) 17 gm PO BID PRN PRN Reason: Constipation Senna (Senna) 8.6 mg PO DAILY PRN PRN Reason: Constipation Last Admin: 10/13/16 22:08 Dose: 8.6 mg Sodium Chloride (Saline Flush) 10 ml FLUSH ASDIRECTED PRN PRN Reason: Keep Vein Open Last Admin: 10/12/16 11:34 Dose: 10 ml Discontinued Medications Ampicillin Sodium (Ampicillin) Confirm Administered Dose 2 gm .ROUTE .STK-MED ONE Stop: 10/12/16 20:37 Last Admin: 10/12/16 21:41 Dose: Not Given Ampicillin Sodium (Ampicillin) Confirm Administered Dose 4 gm .ROUTE .STK-MED ONE Stop: 10/13/16 02:42 Last Admin: 10/13/16 03:01 Dose: Not Given Dexamethasone (Dexamethasone) 34 mg IV Q12HR [facility] Stop: 10/14/16 21:01 Dexamethasone (Dexamethasone) 34 mg IV ONETIME ONE Stop: 10/12/16 18:01 Dexamethasone (Dexamethasone) 34 mg IV ONETIME ONE Stop: 10/12/16 18:01 Last Admin: 10/12/16 21:41 Dose: Not Given Dexamethasone (Dexamethasone) 34 mg IV ONETIME ONE Stop: 10/12/16 20:46 Last Admin: 10/12/16 21:48 Dose: Not Given Enoxaparin Sodium (Lovenox) 30 mg SUBCUT DAILY [facility] Last Admin: 10/15/16 08:01 Dose: 30 mg Famotidine (Pepcid) 20 mg IVPUSH BID [facility] Last Admin: 10/15/16 21:03 Dose: 20 mg Fentanyl (Sublimaze) 25 mcg IVPUSH ONETIME ONE Stop: 10/12/16 11:11 Last Admin: 10/12/16 11:34 Dose: 25 mcg Fentanyl (Sublimaze) 25 mcg IVPUSH ONETIME ONE Stop: 10/12/16 15:03 Last Admin: 10/12/16 15:28 Dose: 25 mcg Fentanyl (Duragesic) 12 mcg TRDERM Q72H [facility] Last Admin: 10/15/16 18:33 Dose: 12 mcg Gadobenate Dimeglumine (Multihance) 20 ml IVPUSH ONETIME ONE Stop: 10/16/16 13:27 Last Admin: 10/16/16 13:56 Dose: 20 ml Potassium Chloride 10 meq/ (Premix) 100 mls @ 100 mls/hr IV ASDIRECTED [facility] Last Admin: 10/12/16 14:18 Dose: 100 mls/hr Sodium Chloride (Normal Saline) 1,000 mls @ 150 mls/hr IV ONETIME ONE Stop: 10/12/16 19:47 Last Admin: 10/12/16 13:37 Dose: 150 mls/hr Ceftriaxone Sodium 1 gm/ (Sodium Chloride) 100 mls @ 200 mls/hr IV ONETIME ONE Stop: 10/12/16 13:42 Last Admin: 10/12/16 13:40 Dose: 200 mls/hr Ampicillin Sodium 2 gm/ Sodium (Chloride) 100 mls @ 200 mls/hr IV Q4H [facility] Last Admin: 10/12/16 22:41 Dose: Not Given Vancomycin HCl 1 gm/Vancomycin HCl 500 mg/ Sodium Chloride 500 mls @ 125 mls/ hr IV Q12H [facility] Last Admin: 10/12/16 22:41 Dose: Not Given Ceftriaxone Sodium 2 gm/ (Sodium Chloride) 100 mls @ 200 mls/hr IV Q12H [facility] Promethazine HCl 12.5 mg/ (Sodium Chloride) 50.5 mls @ 100 mls/hr IV Q6H PRN PRN Reason: Nausea/Vomiting Metronidazole 500 mg/ Premix 100 mls @ 100 mls/hr IV Q8H [facility] Last Admin: 10/15/16 18:31 Dose: 100 mls/hr Sodium Chloride (Normal Saline) Confirm Administered Dose 100 mls @ as directed .ROUTE .[facility] Stop: 10/12/16 20:46 Last Admin: 10/12/16 21:32 Dose: Not Given Dexamethasone 34 mg/ Sodium (Chloride) 58.5 mls @ 117 mls/hr IV Q12H [facility] Stop: 10/14/16 21:29 Last Admin: 10/13/16 09:32 Dose: Not Given Sodium Chloride (Normal Saline) 1,000 mls @ 150 mls/hr IV ASDIRECTED [facility] Sodium Chloride (Normal Saline) 1,000 mls @ 25 mls/hr IV ASDIRECTED [facility] Last Admin: 10/15/16 21:01 Dose: 25 mls/hr Ampicillin Sodium 2 gm/ Sodium (Chloride) 100 mls @ 200 mls/hr IV Q4H [facility] Ampicillin Sodium 2 gm/ Sodium (Chloride) 100 mls @ 200 mls/hr IV Q4H [facility] Last Admin: 10/13/16 06:00 Dose: 200 mls/hr Vancomycin HCl 1 gm/Vancomycin HCl 500 mg/ Sodium Chloride 500 mls @ 125 mls/ hr IV Q12H [facility] Ceftriaxone Sodium 2 gm/ (Sodium Chloride) 100 mls @ 200 mls/hr IV Q12H [facility] Last Admin: 10/12/16 23:41 Dose: 200 mls/hr Vancomycin HCl 1 gm/Vancomycin HCl 500 mg/ Sodium Chloride 500 mls @ 333.33 mls /hr IV Q12H [facility] Last Admin: 10/13/16 00:38 Dose: 333.33 mls/hr Sodium Chloride (Normal Saline) Confirm Administered Dose 200 mls @ as directed .ROUTE .[facility] ONE Stop: 10/13/16 02:46 Last Admin: 10/13/16 03:01 Dose: Not Given Ampicillin Sodium 2 gm/ Sodium (Chloride) 100 mls @ 200 mls/hr IV Q4H [facility] Last Admin: 10/13/16 11:06 Dose: 200 mls/hr Dexamethasone 34 mg/ Sodium (Chloride) 58.5 mls @ 117 mls/hr IV Q12H [facility] [facility] Stop: 10/14/16 21:59 Last Admin: 10/14/16 20:43 Dose: 117 mls/hr Piperacillin Sod/Tazobactam (Sod 4.5 gm/ Sodium Chloride) 100 mls @ 200 mls/hr IV ONETIME ONE Stop: 10/13/16 13:29 Last Admin: 10/13/16 13:05 Dose: 200 mls/hr Piperacillin Sod/Tazobactam (Sod 4.5 gm/ Sodium Chloride) 100 mls @ 25 mls/hr IV Q8H [facility] Last Admin: 10/15/16 14:07 Dose: 25 mls/hr Meropenem 1 gm/ Sodium (Chloride) 100 mls @ 200 mls/hr IV Q8H [facility] Last Admin: 10/16/16 05:22 Dose: 200 mls/hr Iopamidol (Isovue-300 (61%)) 100 ml IVPUSH ONETIME ONE Stop: 10/16/16 12:41 Last Admin: 10/16/16 14:05 Dose: 100 ml Lorazepam (Ativan) 1 mg IV Q6H PRN PRN Reason: Anxiety Last Admin: 10/14/16 22:18 Dose: 1 mg Magnesium Sulfate (Pharmacy To Dose - Magnesium Replacement) 1 dose .XX ASDIRECTED [facility] Meropenem (Merrem) Confirm Administered Dose 500 mg .ROUTE .STK-MED ONE Stop: 10/16/16 11:42 Last Admin: 10/16/16 12:07 Dose: Not Given Miscellaneous Information (Remove Patch) 1 ea TRDERM Q72H [facility] Last Admin: 10/15/16 18:32 Dose: 1 ea Morphine Sulfate (Morphine) 2 mg IVPUSH Q4H PRN PRN Reason: Pain Stop: 10/15/16 17:19 Morphine Sulfate (Morphine) Confirm Administered Dose 2 mg .ROUTE .STK-MED ONE Stop: 10/16/16 15:49 Last Admin: 10/16/16 15:56 Dose: Not Given Potassium Chloride (Pharmacy To Dose - Potassium Replacement) 1 dose .XX ASDIRECTED [facility] Sodium Chloride (Saline Flush) 10 ml FLUSH ONETIME PRN PRN Reason: IV FLUSH Stop: 10/16/16 16:00 Last Admin: 10/16/16 14:05 Dose: 10 ml Vancomycin HCl (Pharmacy To Dose - Vancomycin) 1 dose .XX ONETIME ONE Stop: 10/12/16 17:13 - Problem List & Annotations (1) Fever SNOMED Code(s): 259004306 Code(s): R50.9 - FEVER, UNSPECIFIED Status: Resolved Priority: High Current Visit: Yes Qualifiers: Fever type: unspecified Qualified Code(s): R50.9 - Fever, unspecified (2) Sepsis SNOMED Code(s): 38051934 Code(s): A41.9 - SEPSIS, UNSPECIFIED ORGANISM Status: Resolved Priority: High Current Visit: Yes Qualifiers: Sepsis type: sepsis due to unspecified organism Qualified Code(s): A41.9 - Sepsis, unspecified organism (3) Cellulitis SNOMED Code(s): 140820765 Code(s): L03.90 - CELLULITIS, UNSPECIFIED Status: Acute Priority: High Current Visit: Yes Qualifiers: Site of cellulitis: face Qualified Code(s): L03.211 - Cellulitis of face (4) Parotid discomfort SNOMED Code(s): 21140114 Code(s): K11.9 - DISEASE OF [place], UNSPECIFIED Status: Acute Priority: High Current Visit: Yes (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
[2016-10-18] MEDS: Multivitamins,Therapeutic Tab PO SCH (09:56)
[2016-10-18] MEDS: Dexamethasone 4 MG Tab PO SCH ×3 (09:56→20:11)
[2016-10-18] MEDS: Famotidine 20 MG Tab PO SCH ×2 (09:56→20:11)
[2016-10-18] MEDS: Enoxaparin 40 MG/0.4 ML Syringe SUBCUT SCH (09:56)
[2016-10-18] MEDS: Morphine 2 MG/ML Syringe IVPUSH PRN (17:06)
[2016-10-19] MEDS: Meropenem 500 MG in Sodium Chloride 0.9% 100 ML IV SCH ×2 (00:20→05:29)
--- NOTE | 2016-10-19 06:36 | PCM.DCSUM1 ---
<Sheri Daniels - Last Filed: 10/19/16 06:38> Discharge Summary - Hospital Course Free Text/Narrative:: This is a 75 year old elderly white male with past medical history of impaired vision, hypertension, chronic constipation, history of head trauma, and history of prostate cancer who presents to the emergency department with complaints of worsening mental status associated with fever of 101.6 and a slurred speech. Patient is unable to abide pertinent information due confused status. 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 He was seen in [facility] in the past but surgical option was not pursued. He has seen Dr. Kelley in [facility] and underwent palliative radiation treatment. Unfortunately, he has become resistant to the treatment. Patient was recently evaluated by numerous physicians in [facility] but over the course of 24 hours he has been rapidly declining. His initial workup in emergency department shows a CBC remarkable for WBC of 16.25, RBC of 4.54, neutrophils of 82%, and monocytes of 11%. His chemistry is remarkable for potassium of 2.9, glucose of 118, CRP of 16.1, and albumin of 3.2. His lactic acid is 1.1. UA is not impressive for urinary tract infection but suggestive of clinical dehydration. His chest x-ray shows no acute abnormal findings. He has cellulitis to right side of the face which is quite pronounced. Patient is being admitted for End of Life Care. He is DNR/DNI with comfort measures. Family is in agreement for antibiotic treatment for the cellulitis but defers imaging or other evaluation beyond IV antibiotic at time of admission. Patient had thin, orange drainage from right nares, side of cellulitis, which was cultured and grew enterobacter and klebsiella; sensitive to meropenem. He was treated initially with triple antibiotic therapy pending C&S then with 4 days with meropenem and IV steroid, transitioned to oral. He had dramatic improvements to swelling/cellulitis and overall condition to the point that he was again coherent, alert, orientated, walking, talking and approriate. He and family agreed to lab evaluation and repeat brain and sinus imaging. MRI of brain and CT of sinuses were obtained showing significant increase of tumor bulk essentially encompassing entire right side of face, eroding sinus cavities , into the globe/optic nerve causing proptosis, eroding into the oropharynx and worsening of the tumor bulk into the brain tissue as well, please see radiology reports for details. This information as well as images themselves were reviewed in detail with patient and family. He will be discharged to [facility] for Hospice care today. He does have appointment scheduled with Dr. Kelley, locally at [facility] today at 9:15. Images have been pushed to [place] for his availability. He is to follow up with PCP within 5-7 days of discharge. 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 ICD Code: C70.9 - MALIGNANT NEOPLASM OF MENINGES, UNSPECIFIED Status: Chronic Priority: High (2) Cellulitis SNOMED Code(s): 549712758 ICD Code: L03.90 - CELLULITIS, UNSPECIFIED Status: Acute Priority: High Qualifiers: Site of cellulitis: face Qualified Code(s): L03.211 - Cellulitis of face (3) Parotid discomfort SNOMED Code(s): 99344211 ICD Code: K11.9 - DISEASE OF SALIVARY GLAND, UNSPECIFIED Status: Acute Priority: High (4) Constipation SNOMED Code(s): 48469766 ICD Code: K59.00 - CONSTIPATION, UNSPECIFIED Status: Chronic Priority: Medium (5) Encephalitis SNOMED Code(s): 16375353 ICD Code: G04.90 - ENCEPHALITIS AND ENCEPHALOMYELITIS, UNSPECIFIED Status: Resolved Priority: High (6) Sepsis SNOMED Code(s): 83531315 ICD Code: A41.9 - SEPSIS, UNSPECIFIED ORGANISM Status: Resolved Priority : High Qualifiers: Sepsis type: sepsis due to unspecified organism Qualified Code(s): A41.9 - Sepsis, unspecified organism (7) Fever SNOMED Code(s): 124994416 ICD Code: R50.9 - FEVER, UNSPECIFIED Status: Resolved Priority: High Qualifiers: Fever type: unspecified Qualified Code(s): R50.9 - Fever, unspecified - Patient Summary/Data Operative Procedure(s) Performed: None Complications: None Consults: Consultations 10/12/16 17:19 Consult to Case Management [CONS] Routine Consult to Chip Applying Machine Tender [CONS] Routine Consult to Spiritual Care [CONS] Routine 10/13/16 07:00 Consult to Speech Language Pathology [COATING ENGINEER Evaluation and Treatment] [CONS] Routine 10/13/16 08:38 OT Evaluation and Treatment [CONS] Routine PT Evaluation and Treatment [CONS] Routine Labs Pending at D/C: None Recommended Follow-up Testing/Procedures: MRI and CT of brain and sinus was pushed to [facility] for f/u appointments with Dr. Kelley on day of discharge at 9:15am PT/OT/COATING ENGINEER to continue at [place] Follow up/Consult with ENT as soon as possible after discharge Follow up with PCP, Dr. Galeana within 5-7 days of discharge Planned Operative Procedure(s) after DC: None Hospital Course: As above - Patient Instructions Diet: Usual Diet as Tolerated (recommend soft foods but COATING ENGINEER to eval and make recommendations periodically based on swallow) Activity: As Tolerated (with walker and assist with ambulation and all transfers ; PT/OT to continue) Driving: Do Not Drive Showering/Bathing: May Shower Notify Provider of: Fever, Increased Pain, Swelling and Redness, Drainage, Nausea and/or Vomiting - Discharge Plan Prescriptions/Med Rec: Dexamethasone 4 mg PO TID #120 tablet LORazepam [Ativan] 1 mg PO Q4H PRN #30 tablet PRN Reason: Anxiety Sulfamethoxazole/Trimethoprim [Bactrim Ds Tablet] 1 each PO BID #20 tablet fentaNYL [Duragesic] 25 mcg TRDERM Q72H #1 box Home Medications: Home Meds Brimonidine/Timolol [Combigan 0.2%/0.5% Ophth Soln] 1 drop EYELF Q12HR 05/04/14 [History] Latanoprost [Xalatan 0.005% Ophth Soln] 1 drop EYELF BEDTIME 05/05/14 [History] Pantoprazole [ProTONIX] 40 mg PO DAILY #90 tab.cr 05/06/14 [Rx] Gabapentin [Neurontin] 300 mg PO TID 08/08/16 [History] Hydrochlorothiazide 25 mg PO DAILY 08/08/16 [History] Lisinopril [Prinivil] 10 mg PO DAILY 08/08/16 [History] Lactulose [Cephulac] 20 gm PO BID 10/13/16 [History] Lutein 6 mg PO DAILY 10/13/16 [History] Multivit with Calcium,Iron,Min [One Daily with Calcium-Iron] 1 tab PO DAILY [History] Na Phos,M-B/Na Phos,Di-Ba [Fleet Enema] 1 applic RECTAL DAILY PRN 10/13/16 [ History] Polyethylene Glycol 3350 [Miralax] 17 gm PO BID PRN 10/13/16 [History] Acetaminophen [Tylenol] 650 mg PO Q4H PRN #0 tablet 10/19/16 [Rx] Acetaminophen [Tylenol] 650 mg RECTAL Q4H PRN #0 supp 10/19/16 [Rx] Bisacodyl [Dulcolax] 10 mg PO ASDIRECTED PRN #0 tablet 10/19/16 [Rx] Bisacodyl [Dulcolax] 10 mg RECTAL DAILY PRN #0 supp 10/19/16 [Rx] Dexamethasone 4 mg PO TID #120 tablet 10/19/16 [Rx] LORazepam [Ativan] 1 mg PO Q4H PRN #30 tablet 10/19/16 [Rx] Sennosides [Senna] 8.6 mg PO DAILY PRN #0 tablet 10/19/16 [Rx] Sulfamethoxazole/Trimethoprim [Bactrim Ds Tablet] 1 each PO BID #20 tablet 10/19 [Rx] fentaNYL [Duragesic] 25 mcg TRDERM Q72H #1 box 10/19/16 [Rx] Patient Handouts: Fever, Adult, Sinusitis, Adult, [id number], Preseptal Cellulitis, Adult Forms: ED Department Discharge Referrals: Josephine Ferrer MD [Ordering Only Provider] - 10/23/16 2:15 pm (phone # to change appt. if needed is [phone]) Catarino Galeana MD [Primary Care Provider] - Kenny Kelley II, MD [Ordering Only Provider] - 10/19/16 9:15 am (This appt. will be in [place] at [facility] phone # if needs to be changed is [phone]) - Discharge Summary/Plan Comment DC Time >30 min.: Yes (40 min) - General Info Date of Service: 10/19/16 Admission Dx/Problem (Free Text: Doing well, slept well. Up and ambulatory. Good appetite. Pain better controlled overnight with increased fentanyl dose. No concerns this morning. Plan for DC to [facility] today. Functional Status: Reports: Pain Controlled, Tolerating Diet, Ambulating, Urinating. Denies: New Symptoms - Review of Systems General: Reports: Weakness. 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 Denies: Ear Pain, Sore Throat Pulmonary: Denies: Shortness of Breath, Cough, Hemoptysis Cardiovascular: Reports: No Symptoms Gastrointestinal: Reports: No Symptoms, Diarrhea, Nausea, Vomiting, Other (good appetite, minimal taste to foods) Genitourinary: Reports: No Symptoms Musculoskeletal: Reports: No Symptoms Neurological: Reports: No Symptoms Psychiatric: Reports: No Symptoms - Patient Data Vitals - Most Recent: Last Vital Signs Temp 97.2 F 10/18/16 20:08 Pulse 64 10/18/16 20:08 Resp 14 10/18/16 20:08 BP 128/73 10/18/16 20:08 Pulse Ox 95 10/18/16 20:08 Weight - Most Recent: 89.811 kg I&O - Last 24 hours: Intake & Output 10/18/16 10/18/16 10/19/16 14:59 22:59 06:59 Intake Total 710 240 400 Output Total 800 600 Balance -90 240 -200 Lab Results - Last 24 hrs: Laboratory Results - last 24 hr 10/18/16 10/18/16 Range/Units 06:45 06:45 WBC 12.95 H (4.23-9.07) K/mm3 RBC 4.39 L (4.63-6.08) M/mm3 Hgb 13.6 L (13.7-17.5) gm/L Hct 40.7 (40.1-51.0) % MCV 92.7 H (79.0-92.2) fl MCH 31.0 (25.7-32.2) pg MCHC 33.4 (32.2-35.5) g/dl RDW Std Deviation 45.4 H (35.1-43.9) fL Plt Count 292 (163-337) K/mm3 MPV 9.3 L (9.4-12.3) fl Neut % (Auto) 87.9 H (34.0-67.9) % Lymph % (Auto) 4.4 L (21.8-53.1) % Wells % (Auto) 5.9 (5.3-12.2) % Eos % (Auto) 0.1 L (0.8-7.0) Baso % (Auto) 0.1 (0.1-1.2) % Neut # (Auto) 11.39 H (1.78-5.38) K/mm3 Lymph # (Auto) 0.57 L (1.32-3.57) K/mm3 Wells # (Auto) 0.76 (0.30-0.82) K/mm3 Eos # (Auto) 0.01 L (0.04-0.54) K/mm3 Baso # (Auto) 0.01 (0.01-0.08) K/mm3 Manual Slide Review Abnormal smear Sodium 140 (136-145) mEq/L Potassium 4.3 (3.5-5.1) mEq/L Chloride 107 (98-107) mEq/L Carbon Dioxide 27 (21-32) mEq/L Anion Gap 10.3 (5-15) BUN 16 (7-18) mg/dL Creatinine 0.8 (0.7-1.3) mg/dL Est Cr Clr Drug Dosing 92.91 mL/min Estimated GFR (MDRD) > 60 (>60) mL/min BUN/Creatinine Ratio 20.0 H (14-18) Glucose 106 (83-115) mg/dL Calcium 8.5 (8.5-10.1) mg/dL C-Reactive Protein 2.0 H* (<1.0) mg/dL Med Orders - Current: Current Medications Acetaminophen (Tylenol) 650 mg RECTAL Q4H PRN PRN Reason: Pain (mild 1-3) Last Admin: 10/12/16 18:27 Dose: 650 mg Acetaminophen (Tylenol) 650 mg PO Q4H PRN PRN Reason: Pain (mild 1-3) Last Admin: 10/16/16 18:35 Dose: 650 mg Albuterol/Ipratropium (Duoneb 3.0-0.5 Mg/3 Ml) 3 ml NEB Q4H PRN PRN Reason: Shortness Of Breath/wheezing Bisacodyl (Dulcolax) 10 mg PO ASDIRECTED PRN PRN Reason: Constipation Last Admin: 10/13/16 22:08 Dose: 10 mg Bisacodyl (Dulcolax) 10 mg RECTAL DAILY PRN PRN Reason: Constipation Dexamethasone (Dexamethasone) 4 mg PO TID [facility] Last Admin: 10/18/16 20:11 Dose: 4 mg Diphenhydr/Magaldrate/Simeth/Lidoca (First-Mouthwash Blm Susp) 30 ml PO ASDIRECTED [facility] Enoxaparin Sodium (Lovenox) 40 mg SUBCUT DAILY [facility] Last Admin: 10/18/16 09:56 Dose: 40 mg Famotidine (Pepcid) 20 mg PO BID [facility] Last Admin: 10/18/16 20:11 Dose: 20 mg Fentanyl (Duragesic) 25 mcg TRDERM Q72H [facility] Last Admin: 10/17/16 12:56 Dose: 25 mcg Hydralazine HCl (Apresoline) 20 mg IVPUSH Q4H PRN PRN Reason: Hypertension Meropenem 500 mg/ Sodium (Chloride) 100 mls @ 200 mls/hr IV Q6H [facility] Last Admin: 10/19/16 05:29 Dose: 200 mls/hr Metoprolol Tartrate (Lopressor) 5 mg IVPUSH Q4H PRN PRN Reason: Tachycardia Miscellaneous Information (Remove Patch) 0 ea TRDERM Q72H [facility] Morphine Sulfate (Morphine) 1 mg IVPUSH Q4H PRN PRN Reason: Pain Last Admin: 10/18/16 17:06 Dose: 1 mg Multivitamins (Thera) 1 each PO DAILY [facility] Last Admin: 10/18/16 09:56 Dose: 1 each Non-Formulary Medication (Na Phos,M-B/Na Phos,Di-Ba) 1 applic RECTAL DAILY PRN PRN Reason: Constipation Ondansetron HCl (Zofran) 4 mg IV Q6H PRN PRN Reason: Nausea/Vomiting Polyethylene Glycol (Miralax) 17 gm PO BID PRN PRN Reason: Constipation Senna (Senna) 8.6 mg PO DAILY PRN PRN Reason: Constipation Last Admin: 10/13/16 22:08 Dose: 8.6 mg Sodium Chloride (Saline Flush) 10 ml FLUSH ASDIRECTED PRN PRN Reason: Keep Vein Open Last Admin: 10/12/16 11:34 Dose: 10 ml Discontinued Medications Ampicillin Sodium (Ampicillin) Confirm Administered Dose 2 gm .ROUTE .STK-MED ONE Stop: 10/12/16 20:37 Last Admin: 10/12/16 21:41 Dose: Not Given Ampicillin Sodium (Ampicillin) Confirm Administered Dose 4 gm .ROUTE .STK-MED ONE Stop: 10/13/16 02:42 Last Admin: 10/13/16 03:01 Dose: Not Given Dexamethasone (Dexamethasone) 34 mg IV Q12HR [facility] Stop: 10/14/16 21:01 Dexamethasone (Dexamethasone) 34 mg IV ONETIME ONE Stop: 10/12/16 18:01 Dexamethasone (Dexamethasone) 34 mg IV ONETIME ONE Stop: 10/12/16 18:01 Last Admin: 10/12/16 21:41 Dose: Not Given Dexamethasone (Dexamethasone) 34 mg IV ONETIME ONE Stop: 10/12/16 20:46 Last Admin: 10/12/16 21:48 Dose: Not Given Enoxaparin Sodium (Lovenox) 30 mg SUBCUT DAILY [facility] Last Admin: 10/15/16 08:01 Dose: 30 mg Famotidine (Pepcid) 20 mg IVPUSH BID [facility] Last Admin: 10/15/16 21:03 Dose: 20 mg Fentanyl (Sublimaze) 25 mcg IVPUSH ONETIME ONE Stop: 10/12/16 11:11 Last Admin: 10/12/16 11:34 Dose: 25 mcg Fentanyl (Sublimaze) 25 mcg IVPUSH ONETIME ONE Stop: 10/12/16 15:03 Last Admin: 10/12/16 15:28 Dose: 25 mcg Fentanyl (Duragesic) 12 mcg TRDERM Q72H [facility] Last Admin: 10/15/16 18:33 Dose: 12 mcg Gadobenate Dimeglumine (Multihance) 20 ml IVPUSH ONETIME ONE Stop: 10/16/16 13:27 Last Admin: 10/16/16 13:56 Dose: 20 ml Potassium Chloride 10 meq/ (Premix) 100 mls @ 100 mls/hr IV ASDIRECTED [facility] Last Admin: 10/12/16 14:18 Dose: 100 mls/hr Sodium Chloride (Normal Saline) 1,000 mls @ 150 mls/hr IV ONETIME ONE Stop: 10/12/16 19:47 Last Admin: 10/12/16 13:37 Dose: 150 mls/hr Ceftriaxone Sodium 1 gm/ (Sodium Chloride) 100 mls @ 200 mls/hr IV ONETIME ONE Stop: 10/12/16 13:42 Last Admin: 10/12/16 13:40 Dose: 200 mls/hr Ampicillin Sodium 2 gm/ Sodium (Chloride) 100 mls @ 200 mls/hr IV Q4H [facility] Last Admin: 10/12/16 22:41 Dose: Not Given Vancomycin HCl 1 gm/Vancomycin HCl 500 mg/ Sodium Chloride 500 mls @ 125 mls/ hr IV Q12H [facility] Last Admin: 10/12/16 22:41 Dose: Not Given Ceftriaxone Sodium 2 gm/ (Sodium Chloride) 100 mls @ 200 mls/hr IV Q12H [facility] Promethazine HCl 12.5 mg/ (Sodium Chloride) 50.5 mls @ 100 mls/hr IV Q6H PRN PRN Reason: Nausea/Vomiting Metronidazole 500 mg/ Premix 100 mls @ 100 mls/hr IV Q8H [facility] Last Admin: 10/15/16 18:31 Dose: 100 mls/hr Sodium Chloride (Normal Saline) Confirm Administered Dose 100 mls @ as directed .ROUTE .STK-MED ONE Stop: 10/12/16 20:46 Last Admin: 10/12/16 21:32 Dose: Not Given Dexamethasone 34 mg/ Sodium (Chloride) 58.5 mls @ 117 mls/hr IV Q12H [facility] Stop: 10/14/16 21:29 Last Admin: 10/13/16 09:32 Dose: Not Given Sodium Chloride (Normal Saline) 1,000 mls @ 150 mls/hr IV ASDIRECTED [facility] Sodium Chloride (Normal Saline) 1,000 mls @ 25 mls/hr IV ASDIRECTED [facility] Last Admin: 10/15/16 21:01 Dose: 25 mls/hr Ampicillin Sodium 2 gm/ Sodium (Chloride) 100 mls @ 200 mls/hr IV Q4H [facility] Ampicillin Sodium 2 gm/ Sodium (Chloride) 100 mls @ 200 mls/hr IV Q4H [facility] Last Admin: 10/13/16 06:00 Dose: 200 mls/hr Vancomycin HCl 1 gm/Vancomycin HCl 500 mg/ Sodium Chloride 500 mls @ 125 mls/ hr IV Q12H [facility] Ceftriaxone Sodium 2 gm/ (Sodium Chloride) 100 mls @ 200 mls/hr IV Q12H [facility] Last Admin: 10/12/16 23:41 Dose: 200 mls/hr Vancomycin HCl 1 gm/Vancomycin HCl 500 mg/ Sodium Chloride 500 mls @ 333.33 mls /hr IV Q12H [facility] Last Admin: 10/13/16 00:38 Dose: 333.33 mls/hr Sodium Chloride (Normal Saline) Confirm Administered Dose 200 mls @ as directed .ROUTE .STK-MED ONE Stop: 10/13/16 02:46 Last Admin: 10/13/16 03:01 Dose: Not Given Ampicillin Sodium 2 gm/ Sodium (Chloride) 100 mls @ 200 mls/hr IV Q4H [facility] Last Admin: 10/13/16 11:06 Dose: 200 mls/hr Dexamethasone 34 mg/ Sodium (Chloride) 58.5 mls @ 117 mls/hr IV Q12H [facility] Stop: 10/14/16 21:59 Last Admin: 10/14/16 20:43 Dose: 117 mls/hr Piperacillin Sod/Tazobactam (Sod 4.5 gm/ Sodium Chloride) 100 mls @ 200 mls/hr IV ONETIME ONE Stop: 10/13/16 13:29 Last Admin: 10/13/16 13:05 Dose: 200 mls/hr Piperacillin Sod/Tazobactam (Sod 4.5 gm/ Sodium Chloride) 100 mls @ 25 mls/hr IV Q8H [facility] Last Admin: 10/15/16 14:07 Dose: 25 mls/hr Meropenem 1 gm/ Sodium (Chloride) 100 mls @ 200 mls/hr IV Q8H [facility] Last Admin: 10/16/16 05:22 Dose: 200 mls/hr Iopamidol (Isovue-300 (61%)) 100 ml IVPUSH ONETIME ONE Stop: 10/16/16 12:41 Last Admin: 10/16/16 14:05 Dose: 100 ml Lorazepam (Ativan) 1 mg IV Q6H PRN PRN Reason: Anxiety Last Admin: 10/14/16 22:18 Dose: 1 mg Magnesium Sulfate (Pharmacy To Dose - Magnesium Replacement) 1 dose .XX ASDIRECTED [facility] Meropenem (Merrem) Confirm Administered Dose 500 mg .ROUTE .STK-MED ONE Stop: 10/16/16 11:42 Last Admin: 10/16/16 12:07 Dose: Not Given Miscellaneous Information (Remove Patch) 1 ea TRDERM Q72H [facility] Last Admin: 10/15/16 18:32 Dose: 1 ea Morphine Sulfate (Morphine) 2 mg IVPUSH Q4H PRN PRN Reason: Pain Stop: 10/15/16 17:19 Morphine Sulfate (Morphine) Confirm Administered Dose 2 mg .ROUTE .STK-MED ONE Stop: 10/16/16 15:49 Last Admin: 10/16/16 15:56 Dose: Not Given Potassium Chloride (Pharmacy To Dose - Potassium Replacement) 1 dose .XX ASDIRECTED [facility] Sodium Chloride (Saline Flush) 10 ml FLUSH ONETIME PRN PRN Reason: IV FLUSH Stop: 10/16/16 16:00 Last Admin: 10/16/16 14:05 Dose: 10 ml Vancomycin HCl (Pharmacy To Dose - Vancomycin) 1 dose .XX ONETIME ONE Stop: 10/12/16 17:13 - Exam Quality Assessment: Reports: DVT Prophylaxis General: Reports: Alert, Oriented, Cooperative, No Acute Distress HEENT: Reports: Other (swelling about right eye/orbit, significantly improved, eyelids swollen shut- have been for quite some time. Erythema to rt side of face resolved/resolving. Swelling to rt side of face present but dramatically improved. ) Neck: Reports: Lymphadenopathy (AC and submandibular to rt side- nontender and fixed) Lungs: Reports: Clear to Auscultation, Normal Respiratory Effort Cardiovascular: Reports: Regular Rate, Regular Rhythm GI/Abdominal Exam: Normal Bowel Sounds, Soft, Non-Tender (Male) Exam: Deferred Rectal (Males) Exam: Deferred Extremities: Normal Inspection Skin: Reports: Warm, Dry, Other (mild to minimal erythema to rt side of face/ cheek/mandible) Neurological: Reports: No New Focal Deficit, Other (occasional confusion; repeating of information from day to day as he does not remember certain conversations or information ). Denies: Normal Speech (slight slurring of words at times) Psy/Mental Status: Reports: Alert, Normal Affect, Normal Mood, Other ( considering terminal prognosis and worsening of condition he is in good spirits) *Q Meaningful Use (DIS) - VTE *Q VTE Criteria *Q: - Stroke *Q Stroke Criteria *Q: - AMI *Q AMI Criteria *Q: <Calli Alberto - Last Filed: 10/19/16 16:34> Discharge Summary - Hospital Course Free Text/Narrative:: See above, grave prognosis. - Discharge Diagnosis/Problem(s) (1) Fever SNOMED Code(s): 629716101 ICD Code: R50.9 - FEVER, UNSPECIFIED Status: Resolved Priority: High Qualifiers: Fever type: unspecified Qualified Code(s): R50.9 - Fever, unspecified (2) Sepsis SNOMED Code(s): 58376633 ICD Code: A41.9 - SEPSIS, UNSPECIFIED ORGANISM Status: Resolved Priority : High Qualifiers: Sepsis type: sepsis due to unspecified organism Qualified Code(s): A41.9 - Sepsis, unspecified organism (3) Cellulitis SNOMED Code(s): 517996720 ICD Code: L03.90 - CELLULITIS, UNSPECIFIED Status: Acute Priority: High Qualifiers: Site of cellulitis: face Qualified Code(s): L03.211 - Cellulitis of face (4) Parotid discomfort SNOMED Code(s): 16720385 ICD Code: K11.9 - DISEASE OF SALIVARY GLAND, UNSPECIFIED Status: Acute Priority: High (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 ICD Code: C70.9 - MALIGNANT NEOPLASM OF MENINGES, UNSPECIFIED Status: Chronic Priority: High (6) Encephalitis SNOMED Code(s): 46997564 ICD Code: G04.90 - ENCEPHALITIS AND ENCEPHALOMYELITIS, UNSPECIFIED Status: Resolved Priority: High - Patient Summary/Data Consults: Consultations 10/12/16 17:19 Consult to Case Management [CONS] Routine Consult to Chip Applying Machine Tender [CONS] Routine Consult to Spiritual Care [CONS] Routine 10/13/16 07:00 Consult to Speech Language Pathology [COATING ENGINEER Evaluation and Treatment] [CONS] Routine 10/13/16 08:38 OT Evaluation and Treatment [CONS] Routine PT Evaluation and Treatment [CONS] Routine - Patient Data Vitals - Most Recent: Last Vital Signs Temp 36.4 C 10/19/16 07:13 Pulse 55 L 10/19/16 07:13 Resp 16 10/19/16 07:13 BP 153/81 H 10/19/16 07:13 Pulse Ox 94 L 10/19/16 07:13 I&O - Last 24 hours: Intake & Output 10/19/16 10/19/16 10/19/16 06:59 14:59 22:59 Intake Total 400 240 Output Total 600 Balance -200 240 Med Orders - Current: Current Medications Discontinued Medications Acetaminophen (Tylenol) 650 mg RECTAL Q4H PRN PRN Reason: Pain (mild 1-3) Last Admin: 10/12/16 18:27 Dose: 650 mg Acetaminophen (Tylenol) 650 mg PO Q4H PRN PRN Reason: Pain (mild 1-3) Last Admin: 10/16/16 18:35 Dose: 650 mg Albuterol/Ipratropium (Duoneb 3.0-0.5 Mg/3 Ml) 3 ml NEB Q4H PRN PRN Reason: Shortness Of Breath/wheezing Ampicillin Sodium (Ampicillin) Confirm Administered Dose 2 gm .ROUTE .STK-MED ONE Stop: 10/12/16 20:37 Last Admin: 10/12/16 21:41 Dose: Not Given Ampicillin Sodium (Ampicillin) Confirm Administered Dose 4 gm .ROUTE .STK-MED ONE Stop: 10/13/16 02:42 Last Admin: 10/13/16 03:01 Dose: Not Given Bisacodyl (Dulcolax) 10 mg PO ASDIRECTED PRN PRN Reason: Constipation Last Admin: 10/13/16 22:08 Dose: 10 mg Bisacodyl (Dulcolax) 10 mg RECTAL DAILY PRN PRN Reason: Constipation Dexamethasone (Dexamethasone) 34 mg IV Q12HR [facility] Stop: 10/14/16 21:01 Dexamethasone (Dexamethasone) 34 mg IV ONETIME ONE Stop: 10/12/16 18:01 Dexamethasone (Dexamethasone) 34 mg IV ONETIME ONE Stop: 10/12/16 18:01 Last Admin: 10/12/16 21:41 Dose: Not Given Dexamethasone (Dexamethasone) 34 mg IV ONETIME ONE Stop: 10/12/16 20:46 Last Admin: 10/12/16 21:48 Dose: Not Given Dexamethasone (Dexamethasone) 4 mg PO TID [facility] Last Admin: 10/19/16 08:10 Dose: 4 mg Diphenhydr/Magaldrate/Simeth/Lidoca (First-Mouthwash Blm Susp) 30 ml PO ASDIRECTED [facility] Enoxaparin Sodium (Lovenox) 30 mg SUBCUT DAILY [facility] Last Admin: 10/15/16 08:01 Dose: 30 mg Enoxaparin Sodium (Lovenox) 40 mg SUBCUT DAILY [facility] Last Admin: 10/19/16 08:10 Dose: 40 mg Famotidine (Pepcid) 20 mg IVPUSH BID [facility] Last Admin: 10/15/16 21:03 Dose: 20 mg Famotidine (Pepcid) 20 mg PO BID [facility] Last Admin: 10/19/16 08:10 Dose: 20 mg Fentanyl (Sublimaze) 25 mcg IVPUSH ONETIME ONE Stop: 10/12/16 11:11 Last Admin: 10/12/16 11:34 Dose: 25 mcg Fentanyl (Sublimaze) 25 mcg IVPUSH ONETIME ONE Stop: 10/12/16 15:03 Last Admin: 10/12/16 15:28 Dose: 25 mcg Fentanyl (Duragesic) 12 mcg TRDERM Q72H [facility] Last Admin: 10/15/16 18:33 Dose: 12 mcg Fentanyl (Duragesic) 25 mcg TRDERM Q72H [facility] Last Admin: 10/17/16 12:56 Dose: 25 mcg Gadobenate Dimeglumine (Multihance) 20 ml IVPUSH ONETIME ONE Stop: 10/16/16 13:27 Last Admin: 10/16/16 13:56 Dose: 20 ml Hydralazine HCl (Apresoline) 20 mg IVPUSH Q4H PRN PRN Reason: Hypertension Potassium Chloride 10 meq/ (Premix) 100 mls @ 100 mls/hr IV ASDIRECTED [facility] Last Admin: 10/12/16 14:18 Dose: 100 mls/hr Sodium Chloride (Normal Saline) 1,000 mls @ 150 mls/hr IV ONETIME ONE Stop: 10/12/16 19:47 Last Admin: 10/12/16 13:37 Dose: 150 mls/hr Ceftriaxone Sodium 1 gm/ (Sodium Chloride) 100 mls @ 200 mls/hr IV ONETIME ONE Stop: 10/12/16 13:42 Last Admin: 10/12/16 13:40 Dose: 200 mls/hr Ampicillin Sodium 2 gm/ Sodium (Chloride) 100 mls @ 200 mls/hr IV Q4H [facility] Last Admin: 10/12/16 22:41 Dose: Not Given Vancomycin HCl 1 gm/Vancomycin HCl 500 mg/ Sodium Chloride 500 mls @ 125 mls/ hr IV Q12H [facility] Last Admin: 10/12/16 22:41 Dose: Not Given Ceftriaxone Sodium 2 gm/ (Sodium Chloride) 100 mls @ 200 mls/hr IV Q12H [facility] Promethazine HCl 12.5 mg/ (Sodium Chloride) 50.5 mls @ 100 mls/hr IV Q6H PRN PRN Reason: Nausea/Vomiting Metronidazole 500 mg/ Premix 100 mls @ 100 mls/hr IV Q8H [facility] Last Admin: 10/15/16 18:31 Dose: 100 mls/hr Sodium Chloride (Normal Saline) Confirm Administered Dose 100 mls @ as directed .ROUTE .STK-MED ONE Stop: 10/12/16 20:46 Last Admin: 10/12/16 21:32 Dose: Not Given Dexamethasone 34 mg/ Sodium (Chloride) 58.5 mls @ 117 mls/hr IV Q12H [facility] Stop: 10/14/16 21:29 Last Admin: 10/13/16 09:32 Dose: Not Given Sodium Chloride (Normal Saline) 1,000 mls @ 150 mls/hr IV ASDIRECTED [facility] Sodium Chloride (Normal Saline) 1,000 mls @ 25 mls/hr IV ASDIRECTED [facility] Last Admin: 10/15/16 21:01 Dose: 25 mls/hr Ampicillin Sodium 2 gm/ Sodium (Chloride) 100 mls @ 200 mls/hr IV Q4H [facility] Ampicillin Sodium 2 gm/ Sodium (Chloride) 100 mls @ 200 mls/hr IV Q4H [facility] Last Admin: 10/13/16 06:00 Dose: 200 mls/hr Vancomycin HCl 1 gm/Vancomycin HCl 500 mg/ Sodium Chloride 500 mls @ 125 mls/ hr IV Q12H [facility] Ceftriaxone Sodium 2 gm/ (Sodium Chloride) 100 mls @ 200 mls/hr IV Q12H [facility] Last Admin: 10/12/16 23:41 Dose: 200 mls/hr Vancomycin HCl 1 gm/Vancomycin HCl 500 mg/ Sodium Chloride 500 mls @ 333.33 mls /hr IV Q12H [facility] Last Admin: 10/13/16 00:38 Dose: 333.33 mls/hr Sodium Chloride (Normal Saline) Confirm Administered Dose 200 mls @ as directed .ROUTE .STK-MED ONE Stop: 10/13/16 02:46 Last Admin: 10/13/16 03:01 Dose: Not Given Ampicillin Sodium 2 gm/ Sodium (Chloride) 100 mls @ 200 mls/hr IV Q4H [facility] Last Admin: 10/13/16 11:06 Dose: 200 mls/hr Dexamethasone 34 mg/ Sodium (Chloride) 58.5 mls @ 117 mls/hr IV Q12H [facility] Stop: 10/14/16 21:59 Last Admin: 10/14/16 20:43 Dose: 117 mls/hr Piperacillin Sod/Tazobactam (Sod 4.5 gm/ Sodium Chloride) 100 mls @ 200 mls/hr IV ONETIME ONE Stop: 10/13/16 13:29 Last Admin: 10/13/16 13:05 Dose: 200 mls/hr Piperacillin Sod/Tazobactam (Sod 4.5 gm/ Sodium Chloride) 100 mls @ 25 mls/hr IV Q8H [facility] Last Admin: 10/15/16 14:07 Dose: 25 mls/hr Meropenem 1 gm/ Sodium (Chloride) 100 mls @ 200 mls/hr IV Q8H [facility] Last Admin: 10/16/16 05:22 Dose: 200 mls/hr Meropenem 500 mg/ Sodium (Chloride) 100 mls @ 200 mls/hr IV Q6H [facility] Last Admin: 10/19/16 05:29 Dose: 200 mls/hr Iopamidol (Isovue-300 (61%)) 100 ml IVPUSH ONETIME ONE Stop: 10/16/16 12:41 Last Admin: 10/16/16 14:05 Dose: 100 ml Lorazepam (Ativan) 1 mg IV Q6H PRN PRN Reason: Anxiety Last Admin: 10/14/16 22:18 Dose: 1 mg Magnesium Sulfate (Pharmacy To Dose - Magnesium Replacement) 1 dose .XX ASDIRECTED [facility] Meropenem (Merrem) Confirm Administered Dose 500 mg .ROUTE .STK-MED ONE Stop: 10/16/16 11:42 Last Admin: 10/16/16 12:07 Dose: Not Given Metoprolol Tartrate (Lopressor) 5 mg IVPUSH Q4H PRN PRN Reason: Tachycardia Miscellaneous Information (Remove Patch) 1 ea TRDERM Q72H [facility] Last Admin: 10/15/16 18:32 Dose: 1 ea Miscellaneous Information (Remove Patch) 0 ea TRDERM Q72H [facility] Morphine Sulfate (Morphine) 2 mg IVPUSH Q4H PRN PRN Reason: Pain Stop: 10/15/16 17:19 Morphine Sulfate (Morphine) 1 mg IVPUSH Q4H PRN PRN Reason: Pain Last Admin: 10/18/16 17:06 Dose: 1 mg Morphine Sulfate (Morphine) Confirm Administered Dose 2 mg .ROUTE .STK-MED ONE Stop: 10/16/16 15:49 Last Admin: 10/16/16 15:56 Dose: Not Given Multivitamins (Thera) 1 each PO DAILY [facility] Last Admin: 10/19/16 08:09 Dose: 1 each Non-Formulary Medication (Na Phos,M-B/Na Phos,Di-Ba) 1 applic RECTAL DAILY PRN PRN Reason: Constipation Ondansetron HCl (Zofran) 4 mg IV Q6H PRN PRN Reason: Nausea/Vomiting Polyethylene Glycol (Miralax) 17 gm PO BID PRN PRN Reason: Constipation Potassium Chloride (Pharmacy To Dose - Potassium Replacement) 1 dose .XX ASDIRECTED [facility] Senna (Senna) 8.6 mg PO DAILY PRN PRN Reason: Constipation Last Admin: 10/13/16 22:08 Dose: 8.6 mg Sodium Chloride (Saline Flush) 10 ml FLUSH ASDIRECTED PRN PRN Reason: Keep Vein Open Last Admin: 10/12/16 11:34 Dose: 10 ml Sodium Chloride (Saline Flush) 10 ml FLUSH ONETIME PRN PRN Reason: IV FLUSH Stop: 10/16/16 16:00 Last Admin: 10/16/16 14:05 Dose: 10 ml Vancomycin HCl (Pharmacy To Dose - Vancomycin) 1 dose .XX ONETIME ONE Stop: 10/12/16 17:13 *Q Meaningful Use (DIS) - VTE *Q VTE Criteria *Q: - Stroke *Q Stroke Criteria *Q: - AMI *Q AMI Criteria *Q:
[2016-10-19 07:23] VITALS: BP 153/81
[2016-10-19] MEDS: Multivitamins,Therapeutic Tab PO SCH (08:09)
[2016-10-19] MEDS: Enoxaparin 40 MG/0.4 ML Syringe SUBCUT SCH (08:10)
[2016-10-19] MEDS: Famotidine 20 MG Tab PO SCH (08:10)
[2016-10-19] MEDS: Dexamethasone 4 MG Tab PO SCH (08:10)
== END 2016-10-19 08:50 | DRG 871 ==
LOC: JD.ED 10:13 → JD.MS 15:50
PROVIDERS: ADMIT Internal Medicine; ATTEND Internal Medicine
DX: A41.9 Sepsis, unspecified organism (principal); C71.9 Malignant neoplasm of brain, unspecified; G93.40 Encephalopathy, unspecified; A85.8 Other specified viral encephalitis; L03.90 Cellulitis, unspecified; C70.9 Malignant neoplasm of meninges, unspecified; J32.9 Chronic sinusitis, unspecified; K11.20 Sialoadenitis, unspecified; E87.6 Hypokalemia; E86.0 Dehydration; I10 Essential (primary) hypertension; K59.09 Other constipation; N40.0 Benign prostatic hyperplasia without lower urinary tract symptoms; F41.9 Anxiety disorder, unspecified; Z51.5 Encounter for palliative care; Z66 Do not resuscitate; Z85.46 Personal history of malignant neoplasm of prostate; T28.0 Burn of mouth and pharynx; H54.8 Legal blindness, as defined in USA; Z79.899 Other long term (current) drug therapy; B96.89 Other specified bacterial agents as the cause of diseases classified elsewhere
CPT/HCPCS: 36415; 71010; 80053; 81001; 83605; 85025; 86140; 87040 ×2; 96361; 96365; 96367; 96375; 96376; 99285; J0696; J3010 ×2; J3480; J7030; J7040; J7050; 70487; 70487-26; 70553; 70553-26; 80048; 82565; 83735; 87070; 87186; 87641; 92526-GN; 92610-GN; 97110-GO; 97110-GP; 97116-GP; 97163-GP; 97167-GO; 97530-GO; 97535-GO; 99284; A9270-GY; A9577; J0290; J1100; J1650; J2060; J2185; J2270; J2543; J3370; J8540; Q9967